=== PATIENT | male | born 1975 | race Caucasian/White ===

== ENCOUNTER 2020-10-24 09:46 | Inpatient (IN) | payer OTHER ==
--- NOTE | 2020-10-24 10:09 | ED ---
General Adult HPI - General Chief complaint: Abdominal Pain Stated complaint: Paracentesis Time Seen by Provider: 10/24/20 09:55 Source: patient, RN notes reviewed, old records reviewed Mode of arrival: ambulatory Limitations: no limitations - History of Present Illness Initial comments: This is a 44-year-old male who presents emergency Department with a past medical history significant for liver failure and ascites. Patient states he does continue drinking but not as much gas. Patient complains of shortness of breath. Patient states her last time his abdomen was this patient he had a paracentesis. Patient states it is getting so big that he is now becoming short of breath. Patient denies any chest pain patient denies any recent fever chills or cough per patient denies abdominal pain other than feeling of distention. Patient denies nausea vomiting diarrhea. - Related Data Allergies Allergy/AdvReac Type Severity Reaction Status Date / Time No Known Allergies Allergy Verified 10/24/20 11:11 Review of Systems ROS Statement: Those systems with pertinent positive or pertinent negative responses have been documented in the HPI. ROS Other: All systems not noted in ROS Statement are negative. Past Medical History Past Medical History: Liver Disease Additional Past Medical History / Comment(s): hx of ETOH ABUSE- History of Any Multi-Drug Resistant Organisms: None Reported Past Surgical History: No Surgical Hx Reported Past Psychological History: No Psychological Hx Reported Smoking Status: Current every day smoker Past Alcohol Use History: Abuse, Heavy General Exam - General Exam Comments Initial Comments: GENERAL: Patient is well-developed and well-nourished. Patient is nontoxic and well- hydrated and is in mild distress. ENT: Neck is soft and supple. No significant lymphadenopathy is noted. Oropharynx is clear. Moist mucous membranes. Neck has full range of motion without eliciting any pain. EYES: The sclera were anicteric and conjunctiva were pink and moist. Extraocular movements were intact and pupils were equal round and reactive to light. Eyelids were unremarkable. PULMONARY: Unlabored respirations. Good breath sounds bilaterally. No audible rales rhonchi or wheezing was noted. CARDIOVASCULAR: There is a regular rate and rhythm without any murmurs gallops or rubs. ABDOMEN: Patient's abdomen is distended consistent with ascites SKIN: Skin is clear with no lesions or rashes and otherwise unremarkable. NEUROLOGIC: Patient is alert and oriented x3. Cranial nerves II through XII are grossly intact. Motor and sensory are also intact. Normal speech, volume and content. Symmetrical smile. MUSCULOSKELETAL: Normal extremities with adequate strength and full range of motion. No lower extremity swelling or edema. No calf tenderness. LYMPHATICS: No significant lymphadenopathy is noted PSYCHIATRIC: Normal psychiatric evaluation. Limitations: no limitations Course Vital Signs 10/24/20 09:58 Temperature 98 F Pulse Rate 103 H Respiratory 18 Rate Blood Pressure 113/82 O2 Sat by Pulse 99 Oximetry Medical Decision Making - Medical Decision Making I spoke with Dr. cagle he agreed to admit the patient admitted the patient wrote admitting orders. - Lab Data Result diagrams: 10/24/20 10:15 10/24/20 10:15 Lab Results 10/24/20 10/24/20 10/24/20 Range/Units 10:15 10:15 10:15 WBC 8.5 (3.8-10.6) k/uL RBC 3.84 L (4.30-5.90) m/uL Hgb 14.3 (13.0-17.5) gm/dL Hct 42.5 (39.0-53.0) % MCV 110.7 H (80.0-100.0) fL MCH 37.3 H (25.0-35.0) pg MCHC 33.7 (31.0-37.0) g/dL RDW 12.8 (11.5-15.5) % Plt Count 154 (150-450) k/uL MPV 7.4 Neutrophils % 67 % Lymphocytes % 19 % Monocytes % 9 % Eosinophils % 3 % Basophils % 1 % Neutrophils # 5.7 (1.3-7.7) k/uL Lymphocytes # 1.6 (1.0-4.8) k/uL Monocytes # 0.7 (0-1.0) k/uL Eosinophils # 0.3 (0-0.7) k/uL Basophils # 0.1 (0-0.2) k/uL Manual Slide Review Performed Macrocytosis Marked A PT 12.0 (9.0-12.0) sec INR 1.1 (<1.2) APTT 26.4 (22.0-30.0) sec Sodium 135 L (137-145) mmol/L Potassium 4.5 (3.5-5.1) mmol/L Chloride 105 (98-107) mmol/L Carbon Dioxide 24 (22-30) mmol/L Anion Gap 6 mmol/L BUN 8 L (9-20) mg/dL Creatinine 0.62 L (0.66-1.25) mg/dL Est GFR (CKD-EPI)AfAm >90 (>60 ml/min/1.73 sqM) Est GFR (CKD-EPI)NonAf >90 (>60 ml/min/1.73 sqM) Glucose 111 H (74-99) mg/dL Calcium 8.6 (8.4-10.2) mg/dL Total Bilirubin 3.2 H (0.2-1.3) mg/dL AST 59 (17-59) U/L ALT 15 (4-49) U/L Alkaline Phosphatase 180 H (38-126) U/L Total Protein 7.2 (6.3-8.2) g/dL Albumin 3.2 L (3.5-5.0) g/dL Serum Alcohol <10 mg/dL Disposition Clinical Impression: Dyspnea, Ascites Disposition: ADMITTED IP TO THIS [facility] Referrals: Nonstaff,Physician [REFERRING] - 1-2 days Time of Disposition: 11:37
[2020-10-24 10:22] LABS: Basophils # (A) 0.1 k/uL (0-0.2); Basophils % (A) 1 %; Eosinophils # (A) 0.3 k/uL (0-0.7); Eosinophils % (A) 3 %; HCT 42.5 % (39.0-53.0); HGB 14.3 gm/dL (13.0-17.5); Lymphocytes # (A) 1.6 k/uL (1.0-4.8); Lymphocytes % (A) 19 %; MCH 37.3 pg (25.0-35.0); MCHC 33.7 g/dL (31.0-37.0); MCV 110.7 fL (80.0-100.0); Macrocytosis Marked; Mean Platelet Volume 7.4; Monocytes # (A) 0.7 k/uL (0-1.0); Monocytes % (A) 9 %; Neutrophils # (A) 5.7 k/uL (1.3-7.7); Neutrophils % (A) 67 %; Platelet Count 154 k/uL (150-450); RBC 3.84 m/uL (4.30-5.90); RDW 12.8 % (11.5-15.5); WBC 8.5 k/uL (3.8-10.6)
[2020-10-24 10:31] LABS: ALT 15 U/L (4-49); AST 59 U/L (17-59); African American GFR (CKD) >90 (>60 ml/min/1.73 sqM); Albumin 3.2 g/dL (3.5-5.0); Alcohol <10 mg/dL; Alkaline Phosphatase 180 U/L (38-126); Anion Gap 6 mmol/L; Blood Urea Nitrogen 8 mg/dL (9-20); Calcium 8.6 mg/dL (8.4-10.2); Carbon Dioxide 24 mmol/L (22-30); Chloride 105 mmol/L (98-107); Glucose 111 mg/dL (74-99); INR 1.1 (<1.2); Non-African American GFR(CKD) >90 (>60 ml/min/1.73 sqM); Partial Thromboplastin Time 26.4 sec (22.0-30.0); Potassium 4.5 mmol/L (3.5-5.1); Sodium 135 mmol/L (137-145); Total Bilirubin 3.2 mg/dL (0.2-1.3); Total Protein 7.2 g/dL (6.3-8.2)
[2020-10-24] MEDS ORDERED: THIAMINE 100 MG/ML 2 ML VIAL IM STA (11:40)
[2020-10-24] MEDS ORDERED: LORazepam 2 MG/ML INJ IV PRN ×3 (11:40)
--- NOTE | 2020-10-24 11:41 | XR ---
EXAMINATION TYPE: XR chest 2V DATE OF EXAM: 10/24/2020 COMPARISON: NONE HISTORY: Shortness of breath. TECHNIQUE: Frontal and lateral views of the chest are obtained. FINDINGS: There are areas of linear increased opacity mid to lower lungs bilaterally. No pleural eff usion or pneumothorax seen bilaterally. The cardiac silhouette size is within normal limits. Old frac ture posterior lateral right seventh rib is suspected, correlate clinically. IMPRESSION: Scattered linear atelectasis and/or less likely developing acute infiltrate. Correlate fo r acute asthma exacerbation.
[2020-10-24] MEDS ORDERED: HYDROmorphone 0.5 MG/0.5 ML SYRINGE IVP STA (12:07)
[2020-10-24] MEDS ORDERED: traMADol-ACETAMINOP 37.5-325MG 1 EACH TAB PO PRN (12:34)
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
--- NOTE | 2020-10-24 13:32 | US ---
EXAMINATION TYPE: US abdomen complete DATE OF EXAM: 10/24/2020 COMPARISON: NONE CLINICAL HISTORY: abd distension and pain with tenderness. Alcoholic and liver damage per EC patient EXAM MEASUREMENTS: Liver Length: 16.4 cm Gallbladder Wall: 0.4 cm CBD: 0.5 cm Spleen: 16.1 x 16.0 x 6.6 cm Right Kidney: 10.6 x 5.6 x 3.8 cm Left Kidney: 10.9 x 4.7 x 5.1 cm Abdominal organs are displaced by ascites seen in all four quadrants with largest ascites pocket at L LQ = 12.2cm A/P but bowel is noted within fluid pocket. RLQ ascites pocket = 9.5cm A/P. Pancreas: Suboptimally evaluated Liver: no masses seen Gallbladder: full of hyperechoic lobular mass and may be sludge/stones as some posterior shadowing i s seen from internal contents on image #[id number] Evidence for sonographic Mcguire's sign: tender here CBD: wnl Spleen: enlarged Right Kidney: No hydronephrosis or masses seen Left Kidney: parallel hyperechoic vessel jenkins noted laterally Upper IVC: wnl Abd Aorta: size is wnl as aorta is only seen proximally Poor visualization of pancreas on initial images saved. No aneurysm in the visualized portion of abdo henrietta aorta. Visualized liver heterogeneously hyperechoic with lobulated contour and surrounding asci komal. Evaluation for focal masses suboptimal due to the heterogeneity. Shadowing intraluminal gallston e in gallbladder. Mild gallbladder wall thickening most likely on basis of underlying hepatocellular disease. No biliary dilatation noted. No gross hydronephrosis bilaterally. Splenomegaly. IMPRESSION: Cirrhosis with evidence of underlying portal venous hypertension as there is splenomegaly with small to moderate amount of abdominal and pelvic ascites.
--- NOTE | 2020-10-24 13:33 | XR ---
EXAMINATION TYPE: XR KUB DATE OF EXAM: 10/24/2020 1:24 PM CLINICAL HISTORY: Pain and swelling. TECHNIQUE: Two Upright KUB images of the abdomen are obtained. COMPARISON: None. FINDINGS: Some paucity of bowel gas. Visualized gas seen in nondistended small and large bowel loops. Hepatomegaly suspected. No suspicious calcifications. No free air. Slight bulging of flanks consiste nt with mild ascites. Lung bases are clear. Visualized osseous structures are intact. IMPRESSION: Overall nonspecific felt to be nonobstructive bowel gas pattern.
--- NOTE | 2020-10-24 14:44 | P.GSCN ---
History of Present Illness Consult date: 10/24/20 History of present illness: CHIEF COMPLAINT: Abdominal pain HISTORY OF PRESENT ILLNESS: The patient is a 44 year old male who presents with history of alcoholic liver cirrhosis presents with abdominal pain and ascites. He presented to the emergency room yesterday. His abdominal pain is moderate severe. Gen. surgery including GI is consulted for his ascites and management. Patient reports moving from [place], [place] to here. He has 6 month history of recurrent ascites with four prior paracentesis. He reports his ascites came back sooner than expected. He is seeking care locally. He reports generalized abdominal pain for his tense ascites that is affecting his breathing as well. PAST MEDICAL HISTORY: See list and reviewed PAST SURGICAL HISTORY: See list and reviewed MEDICATIONS: See list and reviewed ALLERGIES: See list and reviewed SOCIAL HISTORY: See list and reviewed FAMILY HISTORY: See list and reviewed REVIEW OF ORGAN SYSTEMS: CONSTITUTIONAL: No fevers or chills. No recent weight loss. EYES: Denies any trouble with vision. No glasses. HEENT: No difficulties with hearing. No nosebleeds. No difficulty swallowing. RESPIRATORY: Denies pneumonia. Denies any troubles with breathing or dyspnea on exertion. CARDIOVASCULAR: Denies any chest pain, palpitations, or recent heart attacks. GASTROINTESTINAL: Has ascites including alcoholic cirrhosis GENITOURINARY: Denies any blood in urine or increased urinary frequency. NEUROLOGICAL: Denies any numbness or tingling along the distal extremities. No seizure disorders or headaches. MUSCULOSKELETAL: Denies any back pain, stiffness or joint arthritis. SKIN: No current skin cancer. No rash. PSYCHIATRIC: Denies current depression or suicidal thoughts. ENDOCRINE: Denies current thyroid disorders. Denies any blood sugar glucose intolerance. HEME/LYMPHATIC: Denies any lumps and bumps around the neck. No recent deep venous thrombosis. ALLERGY/IMMUNOLOGY: No immunoglobulin therapy. No immune deficiencies. BREAST: Denies current breast lumps, pain or nipple discharge. PHYSICAL EXAM: VITALS: Reviewed CONSTITUTIONAL: Well developed and in no acute distress. EYES: Conjuctivae without sclera icterus. Extraocular movements grossly intact. HEAD, EARS, NOSE, THROAT: Moist buccal mucosa. Head is atraumatic, normocephalic. Hears conversational speech. No nasal drainage. NECK: Supple. No JV distention. No thyroidomegaly. RESPIRATORY: Non-labored respirations and equal bilateral excursions. No gross wheezes. CARDIOVASCULAR: Regular rate and rhythm. Extremities without moderate edema. Palpable 2+ radial pulses. ABDOMEN: Tense ascites. LYMPH: No neck lymphadenopathy. MUSCULOSKELETAL: Nail and fingers with good capillary refill. SKIN: Warm and well perfused with good skin turgor. NEUROLOGIC: Cranial nerves II through XII grossly intact. Sensation upper and ex tremities intact. No focal or lateralizing signs. PSYCH: Appropriate affect. Alert and oriented to person, place and time. Displays appropriate insight. CLINCAL LABS: Reviewed IMAGING: Ultrasound of the abdomen independent review confirming ascites. Gallbladder wall identified with large gallstone. Common bile duct was less than 1 cm and within normal limits. This is my independent interpretation. RADIOLOGY: Report reviewed ASSESSMENT: 1. Alcoholic cirrhosis with moderate ascites 2. Gallstone PLAN: 1. Recommend GI consultation for management alcohol liver cirrhosis disease 2. Patient is elevated risk for complications due to pre-existing ascites. Recommend conservative management. 3. Recommend paracentesis for symptomatic tight ascites. Past Medical History Past Medical History: Liver Disease Additional Past Medical History / Comment(s): hx of ETOH ABUSE- History of Any Multi-Drug Resistant Organisms: None Reported Past Surgical History: No Surgical Hx Reported Past Psychological History: No Psychological Hx Reported Smoking Status: Current every day smoker Past Alcohol Use History: Abuse, Heavy - Past Family History Mother Family Medical History: Diabetes Mellitus Father Additional Family Medical History / Comment(s): alcoholism Medications and Allergies Home Medications Medication Instructions Recorded Confirmed Type Gabapentin 300 mg PO QID 10/24/20 12/10/20 History chlordiazePOXIDE HCl [Librium] 10 mg PO TID PRN 10/24/20 12/10/20 History Furosemide [Lasix] 40 mg PO BID #60 tablet 10/26/20 12/10/20 Rx Spironolactone [Aldactone] 100 mg PO DAILY #120 tab 10/26/20 12/10/20 Rx Famotidine [Pepcid] 20 mg PO Q12H 11/11/20 12/10/20 History Thiamine [Vitamin B-1] 100 mg PO AC-BID 11/11/20 12/10/20 History Multivitamins, Thera [Multivitamin 1 tab PO DAILY 12/02/20 12/10/20 History (formulary)] Allergies Allergy/AdvReac Type Severity Reaction Status Date / Time acetaminophen [From Tylenol] Allergy Unknown Verified 12/10/20 09:35 Surgical - Exam Vital Signs Temp Pulse Resp BP Pulse Ox 98 F 103 H 18 113/82 99 10/24/20 09:58 10/24/20 09:58 10/24/20 09:58 10/24/20 09:58 10/24/20 09:58 Results - Labs 10/26/20 07:21 10/26/20 13:58 Abnormal Lab Results - Last 24 Hours (Table) 10/24/20 10/24/20 Range/Units 10:15 10:15 RBC 3.84 L (4.30-5.90) m/uL MCV 110.7 H (80.0-100.0) fL MCH 37.3 H (25.0-35.0) pg Macrocytosis Marked A Sodium 135 L (137-145) mmol/L BUN 8 L (9-20) mg/dL Creatinine 0.62 L (0.66-1.25) mg/dL Glucose 111 H (74-99) mg/dL Total Bilirubin 3.2 H (0.2-1.3) mg/dL Alkaline Phosphatase 180 H (38-126) U/L Albumin 3.2 L (3.5-5.0) g/dL Diabetes panel 10/24/20 Range/Units 10:15 Sodium 135 L (137-145) mmol/L Potassium 4.5 (3.5-5.1) mmol/L Chloride 105 (98-107) mmol/L Carbon Dioxide 24 (22-30) mmol/L BUN 8 L (9-20) mg/dL Creatinine 0.62 L (0.66-1.25) mg/dL Glucose 111 H (74-99) mg/dL Calcium 8.6 (8.4-10.2) mg/dL AST 59 (17-59) U/L ALT 15 (4-49) U/L Alkaline Phosphatase 180 H (38-126) U/L Total Protein 7.2 (6.3-8.2) g/dL Albumin 3.2 L (3.5-5.0) g/dL Calcium panel 10/24/20 Range/Units 10:15 Calcium 8.6 (8.4-10.2) mg/dL Albumin 3.2 L (3.5-5.0) g/dL Pituitary panel 10/24/20 Range/Units 10:15 Sodium 135 L (137-145) mmol/L Potassium 4.5 (3.5-5.1) mmol/L Chloride 105 (98-107) mmol/L Carbon Dioxide 24 (22-30) mmol/L BUN 8 L (9-20) mg/dL Creatinine 0.62 L (0.66-1.25) mg/dL Glucose 111 H (74-99) mg/dL Calcium 8.6 (8.4-10.2) mg/dL Adrenal panel 10/24/20 Range/Units 10:15 Sodium 135 L (137-145) mmol/L Potassium 4.5 (3.5-5.1) mmol/L Chloride 105 (98-107) mmol/L Carbon Dioxide 24 (22-30) mmol/L BUN 8 L (9-20) mg/dL Creatinine 0.62 L (0.66-1.25) mg/dL Glucose 111 H (74-99) mg/dL Calcium 8.6 (8.4-10.2) mg/dL Total Bilirubin 3.2 H (0.2-1.3) mg/dL AST 59 (17-59) U/L ALT 15 (4-49) U/L Alkaline Phosphatase 180 H (38-126) U/L Total Protein 7.2 (6.3-8.2) g/dL Albumin 3.2 L (3.5-5.0) g/dL Assessment and Plan (1) Alcoholic cirrhosis of liver with ascites Status: Acute Code(s): K70.31 - ALCOHOLIC CIRRHOSIS OF LIVER WITH ASCITES SNOMED Code(s): 645356733 (2) Gallstones Status: Acute Code(s): K80.20 - CALCULUS OF GALLBLADDER W/O CHOLECYSTITIS W/O OBSTRUCTION SNOMED Code(s): 711373365 (3) Generalized abdominal pain Status: Acute Code(s): R10.84 - GENERALIZED ABDOMINAL PAIN SNOMED Code(s): 782613908
[2020-10-24] MEDS: GABAPENTIN 300 MG CAP PO SCH ×3 (15:17→21:04)
[2020-10-24] MEDS: THIAMINE 100 MG TAB PO SCH (17:43)
[2020-10-24] MEDS ORDERED: FAMOTIDINE 20 MG/2 ML VIAL IV SCH (21:00)
[2020-10-24] MEDS: FAMOTIDINE 20 MG TAB PO SCH (21:04)
[2020-10-24] MEDS: HEPARIN SODIUM,PORCINE/PF 5,000 UNIT/0.5 ML SYRINGE SQ SCH (21:04)
[2020-10-25] MEDS ORDERED: traMADol 50 MG TAB PO PRN (06:57)
[2020-10-25] MEDS ORDERED: SPIRONOLACTONE 25 MG TAB PO SCH (08:00)
[2020-10-25] MEDS: THIAMINE 100 MG TAB PO SCH ×2 (08:05→17:28)
[2020-10-25] MEDS: GABAPENTIN 300 MG CAP PO SCH ×4 (08:05→22:26)
[2020-10-25] MEDS: HEPARIN SODIUM,PORCINE/PF 5,000 UNIT/0.5 ML SYRINGE SQ SCH ×2 (08:05→19:51)
[2020-10-25] MEDS: FUROSEMIDE 10 MG/ML 4 ML VIAL IV SCH ×2 (08:05→19:51)
[2020-10-25] MEDS: FAMOTIDINE 20 MG TAB PO SCH ×2 (08:05→19:51)
--- NOTE | 2020-10-25 12:02 | P.PN ---
Subjective This is a pleasant 44 years old male with past medical history of alcohol abuse, alcoholic liver disease and ascites status post previous tapping. Presents because of respiratory distress whom he believes is due to his worsening ascites. Patient is a cigarette smoker. He is following up with the Office and Dr. Patiño . Patient states that he's been diagnosed with alcoholic liver disease about 6 months ago. He underwent paracentesis about 2.5 weeks at [place] Now he presents because of abdominal pain which started yesterday however had become more severe about 2 hours ago, his pain is all over and more on the right side, he rated as 9.5/10 in severity as he describes. Nonspecific. Her diarrhea. No chest pain, he has mild breathing difficulty mostly due to his abdominal pain and distention. No chest pain. He has chronic cough with minimal occasional phlegm which is also chronic. No headache or weakness. No numbness. He still smokes about 1 pack per day. He states he quit drinking except for dilute alcohol at times and beers occasionally Vitas looks stable. Labs are unremarkable including CBC, INR, BMP, liver enzymes. Bilirubin is elevated at 3.2. Chest x-ray: Scattered linear atelectasis and/or less likely develop an acute infiltrates. Correlate for acute asthma exacerbation In the emergency room patient was started on CIWA protocol father at bedside. He help with history 10/25/2020 Patient abdominal pain is better controlled after taking Ultram which he states helping him. He tolerates diet well, he had normal bowel movement today. He is in less distress. His PCP is Dr. Heard from [place] from the [place]. He does not follow up with GI because he just moving into the town. Admits quitting drinking alcohol. GI team evaluated the patient and plan for paracentesis tomorrow. No surgical intervention per surgery team. Patient is a started on IV Lasix, oral Aldactone with fluid restriction. M onitor weight, creatinine and electrolytes Objective - Vital Signs Vital signs: Vital Signs Temp 98.9 F 10/25/20 11:25 Pulse 110 H 10/25/20 11:25 Resp 16 10/25/20 11:25 BP 100/72 10/25/20 11:25 Pulse Ox 92 L 10/25/20 11:25 Intake & Output 10/24/20 10/25/20 10/25/20 18:59 06:59 18:59 Intake Total 480 Balance 480 Weight 70.76 kg Intake: Oral 480 Other: Voiding Method Toilet Toilet # Voids 1 - Exam GENERAL: The patient is alert and oriented x3, not in any acute distress. Well developed, well nourished. HEENT: Pupils are round and equally reacting to light. EOMI. No scleral icterus. No conjunctival pallor. Normocephalic, atraumatic. No pharyngeal erythema. No thyromegaly. CARDIOVASCULAR: S1 and S2 present. No murmurs, rubs, or gallops. PULMONARY: Chest is clear to auscultation, no wheezing or crackles. -ABDOMEN: Soft, less tender,distended, normoactive bowel sounds. No palpable organomegaly. MUSCULOSKELETAL: No joint swelling or deformity. EXTREMITIES: No cyanosis, clubbing, or pedal edema. NEUROLOGICAL: Gross neurological examination did not reveal any focal deficits. SKIN: No rashes. no petechiae. - Labs CBC & Chem 7: 10/24/20 10:15 10/24/20 10:15 Assessment and Plan Assessment: abdominal pain and tenderness secondary to ascites Alcoholic liver disease decompensated cirrhosis with ascites. Jaundice Alcohol abuse at-risk of alcohol withdrawal. Nicotine dependence Plan: This is a pleasant 44 years old male who presents with abdominal pain and tenderness, possible decompensated liver disease with ascites Consult GI and plan for paracentesis. Pain management. Continue With diuretics Abstinence from alcohol If Ascites is confirmed, we'll start the patient on diuretics and consult IR for paracentesis Labs and medication were reviewed.. Continue same treatment. Continue with symptomatic treatment. Resume home medication. Monitor lytes and vitals. DVT and GI prophylaxis. Further recommendationsas per clinical course of the patient DVT prophylaxis: Subcutaneous heparin GI Prophylaxis: Pepcid PT/OT: Pending Prognosis is guarded
[2020-10-25 13:15] VITALS: RESP 16
[2020-10-25 13:54] VITALS: BMI 21.7
[2020-10-25] MEDS: ALBUMIN HUMAN 25% 50 ML in EMPTY BAG 1 BAG IVPB SCH ×2 (15:21→15:43)
--- NOTE | 2020-10-25 15:28 | P.PN ---
Subjective Progress Note Date: 10/25/20 CHIEF COMPLAINT: Abdominal pain HISTORY OF PRESENT ILLNESS: The patient is a 44 year old male who presents in history of alcoholic liver cirrhosis presents with initial tense ascites. He status post paracentesistoday. His abdominal pain is resolved. Tolerating diet regular diet. REVIEW OF ORGAN SYSTEMS: No nausea or vomiting fevers chills. No chest pain. No shortness of breath. PHYSICAL EXAM: VITALS: Reviewed CONSTITUTIONAL: Well developed and in no acute distress. EYES: Conjuctivae without sclera icterus. Extraocular movements grossly intact. HEAD, EARS, NOSE, THROAT: Moist buccal mucosa. Head is atraumatic, normocephalic. Hears conversational speech. No nasal drainage. NECK: Supple. No JV distention. No thyroidomegaly. RESPIRATORY: Non-labored respirations and equal bilateral excursions. No gross wheezes. CARDIOVASCULAR: Regular rate and rhythm. Extremities without moderate edema. Palpable 2+ radial pulses. ABDOMEN: Abdomen soft. No peritonitis. Mild ascites MUSCULOSKELETAL: Nail and fingers with good capillary refill. SKIN: Warm and well perfused with good skin turgor. NEUROLOGIC: Cranial nerves II through XII grossly intact. Sensation upper and extremities intact. No focal or lateralizing signs. PSYCH: Appropriate affect. Alert and oriented to person, place and time. Displays appropriate insight. CLINCAL LABS: Reviewed REPORT: Ultrasound report demonstrates cirrhosis with ascites and gallstones. ASSESSMENT: 1. Alcoholic cirrhosis with moderate ascites 2. Asymptomatic gallstones PLAN: 1. Management per GI regarding chronic ascites. No surgical intervention at this time. Objective - Vital Signs Vital signs: Vital Signs Temp 98.9 F 10/25/20 11:25 Pulse 105 H 10/25/20 14:01 Resp 16 10/25/20 14:01 BP 111/72 10/25/20 14:01 Pulse Ox 94 L 10/25/20 14:01 Intake & Output 10/24/20 10/25/20 10/25/20 18:59 06:59 18:59 Intake Total 480 Balance 480 Weight 70.76 kg 70.76 kg Intake: Oral 480 Other: Voiding Method Toilet Toilet # Voids 1 - Labs CBC & Chem 7: 10/24/20 10:15 10/24/20 10:15 Assessment and Plan (1) Alcoholic cirrhosis of liver with ascites Current Visit: Yes Status: Acute Code(s): K70.31 - ALCOHOLIC CIRRHOSIS OF LIVER WITH ASCITES SNOMED Code(s): 579994022 (2) Gallstones Current Visit: Yes Status: Acute Code(s): K80.20 - CALCULUS OF GALLBLADDER W/O CHOLECYSTITIS W/O OBSTRUCTION SNOMED Code(s): 591281087 (3) Generalized abdominal pain Current Visit: Yes Status: Acute Code(s): R10.84 - GENERALIZED ABDOMINAL PAIN SNOMED Code(s): 249320157
--- NOTE | 2020-10-25 16:04 | US ---
EXAMINATION TYPE: US paracentesis abd w/image DATE OF EXAM: 10/25/2020 COMPARISON: NONE HISTORY: Ascites. PROCEDURE: Maximal barrier technique was utilized. The skin overlying a suitable pocket of fluid was localized with ultrasound and the overlying skin was prepped and draped. Ultrasound was utilized with sterile technique. Lidocaine was used for local anesthesia and a skin colleen made with a scalpel. Catheter was advanced under direct ultrasound guidance into a suitable pocket of fluid and approximately 7.2 liter s of serous fluid were removed. Catheter was withdrawn and hemostasis achieved. There is no immedia te complication; the patient is discharged in stable condition. IMPRESSION: STATUS POST ULTRASOUND GUIDED PARACENTESIS FOR PALLIATION OF ASCITES. THIS PROCEDURE WA S PERFORMED BY THE UNDERSIGNED.
--- NOTE | 2020-10-25 16:29 | CONS ---
CONSULTATION DATE OF DICTATION: October 25, 2020 REASON FOR CONSULTATION: Ascites, alcoholic liver disease. HISTORY OF PRESENT ILLNESS: The patient is a 44-year-old white male with history of heavy alcohol abuse diagnosed with alcoholic liver disease and recurrent ascites who was admitted to hospital with acute onset of severe abdominal pain and progressive abdominal distention. He was noted to have significant amount of ascites. He underwent large-volume paracentesis this morning and approximately 7.2 L of fluid was removed. The patient states that he had 5 other episodes of paracentesis done in the last 2 months while he was living in [facility]. The patient was not on any diuretics prior to admission to this hospital. Following the paracentesis, he is feeling much better. He drinks a 5th of hard liquor every day and occasional beers. This patient states that he quit drinking about 3 weeks ago. He is feeling much better currently. PAST MEDICAL HISTORY: Significant for alcoholic liver disease with cirrhosis of the liver diagnosed about 6 months ago. PAST SURGICAL HISTORY: Unremarkable. MEDICATIONS: Medications at home include gabapentin, melatonin, and Librium. ALLERGIES: None. SOCIAL HISTORY: Chronic smoker. Heavy alcohol use as mentioned above, quit drinking about 3 weeks ago. FAMILY HISTORY: Unremarkable. REVIEW OF SYSTEMS: CARDIOPULMONARY: He denies any chest pain or shortness of breath. GENITOURINARY: No dysuria or hematuria. MUSCULOSKELETAL: Unremarkable. SKIN: Unremarkable. ENDOCRINE: Unremarkable. PSYCHIATRIC: Unremarkable. NEUROLOGY: Unremarkable. ENT/VISION: Unremarkable. CONSTITUTIONAL: No recent weight loss. No fever, chills, night sweats. PHYSICAL EXAMINATION: He appears comfortable. Vital signs are stable. Blood pressure is 110/72, pulse rate 105, temperature 98.9. HEENT EXAMINATION: Unremarkable. Conjunctivae pink. Sclerae anicteric Oral cavity no lesions. NECK: No JVD or lymph node enlargement. CHEST: Was clear to auscultation. HEART: Regular rate and rhythm. ABDOMEN: Soft. It was slightly distended but it was nontender. EXTREMITIES: Trace pedal edema. NEUROLOGIC: Alert and oriented x3. No focal deficits. LABS: WBC 8.5, hemoglobin 14.3, platelets normal. BUN and creatinine are within normal limits. Sodium 135, potassium 4.5, chloride 105, CO2 is 24. Albumin is 3.2. Serum alcohol less than 10. He did have an ultrasound of the abdomen done in the ER yesterday that revealed moderate amount of ascites with cirrhosis of the liver and portal venous hypertension. IMPRESSION: 1. Abdominal distention/ascites secondary to alcoholic cirrhosis of the liver and portal hypertension, status post large-volume paracentesis 7.2 L of fluid was removed. Cytology is still pending. 2. Alcoholic cirrhosis of the liver diagnosed 6 months ago. 3. Heavy alcohol abuse, quit drinking about 3 weeks ago. RECOMMENDATIONS: 1. Start him on diuretics with Lasix 40 b.i.d. and Aldactone 100 mg daily. 2. Low-salt diet. 3. Abstinence from alcohol. 4. I had a lengthy discussion with the patient regarding management of ascites. At this time we will continue him on diuretics. He can be discharged home tomorrow with close outpatient followup in 2 weeks. Thank you for this consultation. MMTAMARAL / CODYN: [id number] /
[2020-10-25 16:40] LABS: Appearance,BF Hazy; Color,BF Yellow; Nucleated Cells, Body Fluid 50 /uL; RBC, Body Fluid 1540 /uL
[2020-10-25 16:47] LABS: Mononuclear WBC,Body Fluid 77 %; Polynuclear WBC,Body Fluid 23 %; Total Cells Counted,Body Fluid 100
[2020-10-25 22:50] LABS: Albumin, Fluid Source Ascites; Total Protein, Body Fluid 1330 mg/dL
[2020-10-26] MEDS: GABAPENTIN 300 MG CAP PO SCH ×2 (07:48→12:47)
[2020-10-26] MEDS: THIAMINE 100 MG TAB PO SCH (07:48)
[2020-10-26] MEDS: FUROSEMIDE 10 MG/ML 4 ML VIAL IV SCH (07:48)
[2020-10-26] MEDS: HEPARIN SODIUM,PORCINE/PF 5,000 UNIT/0.5 ML SYRINGE SQ SCH (07:48)
[2020-10-26] MEDS: FAMOTIDINE 20 MG TAB PO SCH (07:48)
[2020-10-26 08:08] LABS: ALT 10 U/L (4-49); AST 39 U/L (17-59); African American GFR (CKD) >90 (>60 ml/min/1.73 sqM); Albumin 2.4 g/dL (3.5-5.0); Albumin/Globulin Ratio 0.8; Alkaline Phosphatase 128 U/L (38-126); Anion Gap 5 mmol/L; Blood Urea Nitrogen 10 mg/dL (9-20); Calcium 8.1 mg/dL (8.4-10.2); Carbon Dioxide 24 mmol/L (22-30); Chloride 101 mmol/L (98-107); Globulin 3.2 g/dL; Glucose 92 mg/dL (74-99); Magnesium 1.8 mg/dL (1.6-2.3); Non-African American GFR(CKD) >90 (>60 ml/min/1.73 sqM); Potassium 3.9 mmol/L (3.5-5.1); Sodium 130 mmol/L (137-145); Total Bilirubin 1.5 mg/dL (0.2-1.3); Total Protein 5.6 g/dL (6.3-8.2)
[2020-10-26 08:44] LABS: HCT 38.6 % (39.0-53.0); HGB 12.5 gm/dL (13.0-17.5); MCH 35.5 pg (25.0-35.0); MCHC 32.3 g/dL (31.0-37.0); MCV 109.9 fL (80.0-100.0); Macrocytosis Marked; Mean Platelet Volume 7.7; Platelet Count 132 k/uL (150-450); RBC 3.51 m/uL (4.30-5.90); RDW 13.6 % (11.5-15.5); WBC 6.9 k/uL (3.8-10.6)
[2020-10-26] MEDS ORDERED: SPIRONOLACTONE 25 MG TAB PO SCH (09:00)
--- NOTE | 2020-10-26 10:04 | P.PN ---
Subjective Progress Note Date: 10/26/20 Principal diagnosis: Ascites 44-year-old male who presented to the hospital 2 days ago with abdominal pain and distention. Has a history of heavy alcohol abuse with cirrhosis of the liver with ascites. He has known for previous paracentesis which he states are approximately 3-4 weeks apart. He is not following with any data migration lead at this time. He underwent a paracentesis yesterday with fluid studies, they removed 7.2 L. He has status post albumin. He states his abdominal pain has improved, distention has improved. No acute changes through the night. Denies any nausea, vomiting, or diarrhea. Objective - Vital Signs Vital signs: Vital Signs Temp 98.2 F 10/26/20 04:53 Pulse 104 H 10/26/20 04:53 Resp 16 10/26/20 04:53 BP 92/59 10/26/20 04:53 Pulse Ox 93 L 10/26/20 04:53 Intake & Output 10/25/20 10/26/20 10/26/20 18:59 06:59 18:59 Intake Total 340 480 472 Balance 340 480 472 Weight 70.76 kg Intake: Intake, IV Titration 100 Amount Albumin Human 25% 50 ml 100 In Empty Bag 1 bag @ 200 mls/hr IVPB Q15M COUNTS INCLUDE 234 BEDS AT THE [facility] Rx#: [id number] Oral 240 480 472 Other: Voiding Method Toilet Toilet Toilet # Voids 2 2 - Exam General appearance: The patient is alert, oriented, appears in no acute distress. HET: Head is normocephalic and atraumatic. Conjunctiva pink. Sclera anicteric. Neck: Supple without lymphadenopathy. Abdomen: Soft, mildly tender, distended with bowel sounds. No guarding or rigidity. Extremities: Normal skin color and turgor. No pedal edema Skin: No rashes, no jaundice Neurological: No focal deficits. Alert and oriented 3. - Labs CBC & Chem 7: 10/26/20 07:21 10/26/20 13:58 Labs: Abnormal Lab Results - Last 24 Hours (Table) 10/26/20 10/26/20 Range/Units 07: 07:21 RBC 3.51 L (4.30-5.90) m/uL Hgb 12.5 L (13.0-17.5) gm/dL Hct 38.6 L (39.0-53.0) % MCV 109.9 H (80.0-100.0) fL MCH 35.5 H (25.0-35.0) pg Plt Count 132 L (150-450) k/uL Macrocytosis Marked A Sodium 130 L (137-145) mmol/L Creatinine 0.51 L (0.66-1.25) mg/dL Calcium 8.1 L (8.4-10.2) mg/dL Total Bilirubin 1.5 H (0.2-1.3) mg/dL Alkaline Phosphatase 128 H (38-126) U/L Total Protein 5.6 L (6.3-8.2) g/dL Albumin 2.4 L (3.5-5.0) g/dL Assessment and Plan (1) Alcoholic cirrhosis of liver with ascites Narrative/Plan: This is a 44-year-old male who presented to the hospital with complaints of abdominal distention and abdominal pain. He was recently diagnosed with cirrhosis of the liver with ascites approximately 5 months ago. He has underwent for paracentesis previously. He has a history of heavy alcohol abuse that the day or more for greater than 26 years. He is status post Zee T since yesterday was 7.2 L removed along with albumin Status: Acute Code(s): K70.31 - ALCOHOLIC CIRRHOSIS OF LIVER WITH ASCITES SNOMED Code(s): 405034930 (2) Generalized abdominal pain Status: Acute Code(s): R10.84 - GENERALIZED ABDOMINAL PAIN SNOMED Code(s): 275197932 Plan: 1. Low sodium diet 2. Lasix 40 mg once a day 3. Aldactone 100 mg daily 4. Alcohol cessation 5. Patient will need close follow-up with gastroenterology for outpatient paracentesis Thank you for this consultation, patient may be discharged home once otherwise medically stable Dr. Karla Vargas I agree with the dictator's note, documented as a scribe by Karin Dennis.
[2020-10-26 10:46] LABS: Eosinophils # (M) 0.35 k/uL (0-0.7); Monocytes # (M) 0.48 k/uL (0-1.0); Neutrophils # (M) 4.07 k/uL (1.3-7.7); Neutrophils % (M) 59 %; Nucleated Red Blood Cells 0 /100 WBC (0-0); Total Cells Counted 100
[2020-10-26 11:42] VITALS: BP 95/55; PULSE 103; TEMP 98.8
--- NOTE | 2020-10-26 14:12 | P.PN ---
Subjective Progress Note Date: 10/26/20 CHIEF COMPLAINT: Abdominal pain HISTORY OF PRESENT ILLNESS: The patient is a 44 year old male with alcoholic cirrhosis and ascites. He is tolerating diet. He denies any right upper quadrant abdominal pain or new abdominal pain. He is on fluid restriction. Ultrasound findings are described including presence of gallstones for which he is asymptomatic. REVIEW OF ORGAN SYSTEMS: No nausea or vomiting fevers chills. No chest pain. No shortness of breath. PHYSICAL EXAM: VITALS: Reviewed CONSTITUTIONAL: Well developed and in no acute distress. EYES: Conjuctivae without sclera icterus. Extraocular movements grossly intact. HEAD, EARS, NOSE, THROAT: Moist buccal mucosa. Head is atraumatic, no rmocephalic. Hears conversational speech. No nasal drainage. RESPIRATORY: Non-labored respirations and equal bilateral excursions. No gross wheezes. CARDIOVASCULAR: Regular rate and rhythm. Extremities without moderate edema. Palpable 2+ radial pulses. ABDOMEN: No peritonitis. MUSCULOSKELETAL: Nail and fingers with good capillary refill. SKIN: Warm and well perfused with good skin turgor. NEUROLOGIC: Cranial nerves II through XII grossly intact. Sensation upper and extremities intact. No focal or lateralizing signs. PSYCH: Appropriate affect. Alert and oriented to person, place and time. Displays appropriate insight. ASSESSMENT: 1. Alcoholic cirrhosis with moderate ascites 2. Asymptomatic gallstones PLAN: 1. Continue with fluid restriction. 2. Patient is asymptomatic for gallstones and over will be high risk. 3. Recommend follow-up with gastroenterology upon discharge Objective - Vital Signs Vital signs: Vital Signs Temp 98.8 F 10/26/20 11:20 Pulse 103 H 10/26/20 11:20 Resp 16 10/26/20 11:20 BP 95/55 10/26/20 11:20 Pulse Ox 92 L 10/26/20 11:20 Intake & Output 10/25/20 10/26/20 10/26/20 18:59 06:59 18:59 Intake Total 340 480 944 Balance 340 480 944 Weight 70.76 kg Intake: Intake, IV Titration 100 Amount Albumin Human 25% 50 ml 100 In Empty Bag 1 bag @ 200 mls/hr [facility]PB Q[facility] Rx#: [id number] Oral 240 480 944 Other: Voiding Method Toilet Toilet Toilet # Voids 2 2 - Labs CBC & Chem 7: 10/26/20 07:21 10/26/20 07:21 Labs: Abnormal Lab Results - Last 24 Hours (Table) 10/26/20 10/26/20 Range/Units 07:21 07:21 RBC 3.51 L (4.30-5.90) m/uL Hgb 12.5 L (13.0-17.5) gm/dL Hct 38.6 L (39.0-53.0) % MCV 109.9 H (80.0-100.0) fL MCH 35.5 H (25.0-35.0) pg Plt Count 132 L (150-450) k/uL Macrocytosis Marked A Sodium 130 L (137-145) mmol/L Creatinine 0.51 L (0.66-1.25) mg/dL Calcium 8.1 L (8.4-10.2) mg/dL Total Bilirubin 1.5 H (0.2-1.3) mg/dL Alkaline Phosphatase 128 H (38-126) U/L Total Protein 5.6 L (6.3-8.2) g/dL Albumin 2.4 L (3.5-5.0) g/dL Assessment and Plan (1) Alcoholic cirrhosis of liver with ascites Current Visit: Yes Status: Acute Code(s): K70.31 - ALCOHOLIC CIRRHOSIS OF LIVER WITH ASCITES SNOMED Code(s): 276548377 (2) Gallstones Current Visit: Yes Status: Acute Code(s): K80.20 - CALCULUS OF GALLBLADDER W/O CHOLECYSTITIS W/O OBSTRUCTION SNOMED Code(s): 623637394 (3) Generalized abdominal pain Current Visit: Yes Status: Acute Code(s): R10.84 - GENERALIZED ABDOMINAL PAIN SNOMED Code(s): 277804474
[2020-10-26 14:31] LABS: Potassium 4.1 mmol/L (3.5-5.1)
[2020-10-26 15:48] LABS: African American GFR (CKD) 150.6 (60.0-200.0); Anion Gap 10.5 mmol/L (4.00-12.00); Calcium 7.8 mg/dL (8.7-10.3); Carbon Dioxide 22.5 mmol/L (21.6-31.8); Magnesium 1.6 mg/dL (1.5-2.4); Potassium 3.8 mmol/L (3.5-5.5)
[2020-10-26 18:40] LABS: Hepatitis A Antibody IgM Non-Reactive (Non-Reactive); Hepatitis B Core IgM Non-Reactive (Non-Reactive); Hepatitis B Surface Antigen Non-Reactive (Non-Reactive); Hepatitis C IgG Antibody Non-Reactive (Non-Reactive)
--- NOTE | 2020-10-26 22:06 | P.DS ---
Providers Date of admission: 10/24/20 11:38 Attending physician: Misbah Deshpande MD Consults: 10/24/20 11:40 Consult Physician Urgent Consulting Provider: Rula Vargas Consult Reason/Comments: ascitis ,alcoholic cirrhosis Do you want consulting provider notified?: Yes 10/24/20 12:27 Consult Physician Urgent Consulting Provider: Mayra Goldsmith Consult Reason/Comments: abd tenderness and guarding , alcohlic liver disease Do you want consulting provider notified?: Yes Primary care physician: Stated None Hospital Course: Diagnoses: abdominal pain and tenderness secondary to ascites, improved with paracentesis 7.2 liters removed Alcoholic liver disease decompensated cirrhosis with ascites. Jaundice Alcohol abuse at-risk of alcohol withdrawal. Nicotine dependence Hospital course: This is a pleasant 44 years old male with past medical history of alcohol abuse, alcoholic liver disease and ascites status post previous tapping. Presents because of respiratory distress whom he believes is due to his worsening ascites. Patient is a cigarette smoker. He is following up with the Office and Dr. Patiño . Patient states that he's been diagnosed with alcoholic liver disease about 6 months ago. He underwent paracentesis about 2.5 weeks ago at [place] Now he presents because of abdominal pain which started yesterday secondary to ascites. Status post paracentesis with complete resolution of his symptoms, today patient is with no abdominal pain and draped as 0/10. No nausea vomiting or diarrhea. He pleasant. He denies chest pain or dyspnea. He eats well and he likes his breakfast today with syncopal takes. Patient also has been evaluated by GI and surgery service and they recommended to continue with conservative management,. Patient was started on Lasix 40 mg twice daily and Aldactone 200 mg daily. Patient showed interval improvement and clinically stable. Patient was cleared for discharge by GI and surgery services Problems and management plan were discussed with the patient and he verbalized understanding and acceptance Patient was found stable and can be discharged home however he needs follow-up as an outpatient. Patient was instructed to follow up with PCP within one week and patient agrees to call his PCP Félix at [facility] for an appointment within 1 week Patient was instructed to follow up with GI service and he agrees with the appointments made for him with that applying PA on 11/08/2020 stating he will follow-up Physical exam Gen: patient is a AAOx3, no distress CVS: S1-S2, RRR, no murmur Lungs: B/L CTA, no wheezing Abdomen: soft, no distention, no tenderness, positive bowel sounds Extremity: no leg edema or induration Time spent more than 35 minutes Plan - Discharge Summary Discharge Rx Participant: Yes New Discharge Prescriptions: New Spironolactone [Aldactone] 100 mg PO DAILY #120 tab Furosemide [Lasix] 40 mg PO BID #60 tablet Famotidine [Pepcid] 20 mg PO Q12HR #30 tab Thiamine [Vitamin B-1] 100 mg PO BID-W/MEALS #30 tab Continue Gabapentin 300 mg PO QID chlordiazePOXIDE HCl [Librium] 10 mg PO TID PRN PRN Reason: Anxiety Melatonin Unknown Dose 1 tab PO HS PRN PRN Reason: Insomnia Discharge Medication List Gabapentin 300 mg PO QID 10/24/20 [History] Melatonin Unknown Dose 1 tab PO HS PRN 10/24/20 [History] chlordiazePOXIDE HCl [Librium] 10 mg PO TID PRN 10/24/20 [History] Famotidine [Pepcid] 20 mg PO Q12HR #30 tab 10/26/20 [Rx] Furosemide [Lasix] 40 mg PO BID #60 tablet 10/26/20 [Rx] Spironolactone [Aldactone] 100 mg PO DAILY #120 tab 10/26/20 [Rx] Thiamine [Vitamin B-1] 100 mg PO BID-W/MEALS #30 tab 10/26/20 [Rx] Follow up Appointment(s)/Referral(s): Seda Cheung, MIMA [REFERRING] - 11/08/20 9:45 am Nonstaff,Physician [REFERRING] - 1-2 days Patient Instructions/Handouts: Ascites (ED) Activity/Diet/Wound Care/Special Instructions: Continue with fluid restriction 1200 mL per day. Heart healthy diet. Salt restriction. Activities are restricted until you see your doctor Follow-up with your primary care doctor in [address] Patiño from the [facility]. You have the contact information as you informed the medical team. Please call to make an appointment within 1 week Discharge Disposition: HOME SELF-CARE
== END 2020-10-26 16:00 | disposition home or self-care (01) | DRG 433 ==
LOC: EC 09:46 → 5NMEDONC 11:38
PROVIDERS: ADMIT Internal Medicine; ATTEND Internal Medicine
PROC: 0W9G3ZX Drainage of Peritoneal Cavity, Percutaneous Approach, Diagnostic (ICD-10-PCS; principal; 2020-10-25)
DX: K70.31 Alcoholic cirrhosis of liver with ascites (principal); K76.6 Portal hypertension; K70.40 Alcoholic hepatic failure without coma; F10.10 Alcohol abuse, uncomplicated; Z20.822 Contact with and (suspected) exposure to COVID-19; R06.03 Acute respiratory distress; Y90.0 Blood alcohol level of less than 20 mg/100 ml; K80.20 Calculus of gallbladder without cholecystitis without obstruction; F17.210 Nicotine dependence, cigarettes, uncomplicated; Z83.3 Family history of diabetes mellitus
CPT/HCPCS: 36415; 49083; 71046; 74018; 76700; 80048; 80051; 80053; 80074; 80076; 80320; 82042; 83735; 84157; 85025; 85610; 85730; 87635; 88108; 88305; 89050; 99285

== ENCOUNTER 2020-11-11 10:53 | Inpatient (IN) | payer OTHER ==
[2020-11-12 07:45] VITALS: RESP 16
[2020-11-12 15:18] VITALS: BP 88/57; PULSE 92; TEMP 98.3
== END 2020-11-12 15:49 | disposition home or self-care (01) | DRG 433 ==
LOC: EC 10:53 → 6NMEDSUR 13:25 → OBSVTOIN 11-12 11:06
PROVIDERS: ADMIT Hospitalist; ATTEND Hospitalist
PROC: 0W9G3ZZ Drainage of Peritoneal Cavity, Percutaneous Approach (ICD-10-PCS; principal; 2020-11-12)
DX: K70.31 Alcoholic cirrhosis of liver with ascites (principal); E44.1 Mild protein-calorie malnutrition; F17.200 Nicotine dependence, unspecified, uncomplicated; F10.10 Alcohol abuse, uncomplicated; Z68.20 Body mass index [BMI] 20.0-20.9, adult
CPT/HCPCS: 36415; 49083; 80053; 81003; 82140; 83690; 85025; 85610; 85730; 87635; 88108; 88305; 93005; 99285

== ENCOUNTER 2020-11-29 10:06 | Observation (INO) | payer OTHER ==
[2020-11-29] MEDS ORDERED: MORPHINE SULFATE 4 MG/ML SYRINGE IV STA (10:49)
--- NOTE | 2020-11-29 10:57 | ED ---
Abdominal Pain HPI - General Chief Complaint: Abdominal Pain Stated Complaint: Paracentesis Source: patient, family, RN notes reviewed, old records reviewed Mode of arrival: wheelchair Limitations: no limitations - History of Present Illness Initial Comments: 45-year-old white male, alert and oriented 4, presents to the emergency room with increasing abdominal distention he states from ascites. Patient states that he is scheduled for paracentesis on 79 however he cannot wait that long as he feels increasing pain. Patient states has history of EtOH cirrhosis. He denies any fevers. He states he does have some nausea but denies any vomiting or diarrhea. Patient denies any chest pain. He does complain of shortness of breath which he relates to being distended abdomen. MD Complaint: abdominal pain Location: diffuse Radiation: none Severity scale (1-10): 10 Quality: fullness Consistency: constant Improves With: nothing Worsens With: movement Associated Symptoms: denies other symptoms - Related Data Home Medications Medication Instructions Recorded Confirmed Gabapentin 300 mg PO QID 10/24/20 11/29/20 Melatonin Unknown Dose 1 tab PO HS PRN 10/24/20 11/29/20 chlordiazePOXIDE HCl [Librium] 10 mg PO TID PRN 10/24/20 11/29/20 Famotidine [Pepcid] 20 mg PO Q12H 11/11/20 11/29/20 Thiamine [Vitamin B-1] 100 mg PO AC-BID 11/11/20 11/29/20 Previous Rx's Medication Instructions Recorded Furosemide [Lasix] 40 mg PO BID #60 tablet 10/26/20 Spironolactone [Aldactone] 100 mg PO DAILY #120 tab 10/26/20 Allergies Allergy/AdvReac Type Severity Reaction Status Date / Time acetaminophen [From Tylenol] Allergy Unknown Verified 11/29/20 11:55 Review of Systems ROS Statement: Those systems with pertinent positive or pertinent negative responses have been documented in the HPI. ROS Other: All systems not noted in ROS Statement are negative. Past Medical History Past Medical History: Liver Disease Additional Past Medical History / Comment(s): hx of ETOH ABUSE-, cirrhosis History of Any Multi-Drug Resistant Organisms: None Reported Past Surgical History: No Surgical Hx Reported Past Psychological History: Anxiety, Bipolar, PTSD Smoking Status: Current every day smoker Past Alcohol Use History: Abuse, Heavy Past Drug Use History: Marijuana - Past Family History Mother Family Medical History: Diabetes Mellitus Father Additional Family Medical History / Comment(s): alcoholism General Exam Limitations: no limitations General appearance: alert, in no apparent distress Head exam: Present: atraumatic, normocephalic, normal inspection Eye exam: Present: normal appearance, PERRL, EOMI. Absent: scleral icterus, conjunctival injection, periorbital swelling ENT exam: Present: normal exam, normal oropharynx, mucous membranes moist Neck exam: Present: normal inspection, full ROM. Absent: tenderness, meningismus, lymphadenopathy, thyromegaly Respiratory exam: Present: normal lung sounds bilaterally. Absent: respiratory distress, wheezes, rales, rhonchi, stridor, chest wall tenderness, accessory muscle use, decreased breath sounds Cardiovascular Exam: Present: tachycardia GI/Abdominal exam: Present: distended, tenderness, normal bowel sounds. Absent: pulsatile mass Rectal exam: Present: deferred Extremities exam: Present: normal inspection, full ROM, normal capillary refill. Absent: tenderness, pedal edema, joint swelling, calf tenderness Back exam: Present: normal inspection, full ROM. Absent: tenderness, CVA tenderness (R), CVA tenderness (L), muscle spasm, paraspinal tenderness, vertebral tenderness, rash noted Neurological exam: Present: alert, oriented X3, CN II-XII intact Psychiatric exam: Present: normal affect, normal mood Skin exam: Present: warm, dry, intact, normal color. Absent: rash, cyanosis, diaphoretic, erythema, petechiae, pallor, mottled Course Vital Signs 11/29/20 11/29/20 11/29/20 10:15 11:37 12:24 Temperature 97.9 F Pulse Rate 107 H 95 96 Respiratory 18 18 18 Rate Blood Pressure 108/70 104/74 114/71 O2 Sat by Pulse 98 97 95 Oximetry Medical Decision Making - Medical Decision Making KUB x-ray shows nonspecific nonobstructive bowel gas pattern there is no evidence of free air and there is no obstruction noted. Labs are unremarkable troponin is negative at 0.012. Patient will be admitted to Dr. Hall for a paracentesis within until radiology and consult. - Lab Data Result diagrams: 11/29/20 10:50 11/29/20 10:50 Lab Results 06/28/21 06/28/21 06/28/21 Range/Units 10:50 10:50 10:50 WBC 7.7 (3.8-10.6) k/uL RBC 4.30 (4.30-5.90) m/uL Hgb 14.2 (13.0-17.5) gm/dL Hct 44.0 (39.0-53.0) % MCV 102.3 H (80.0-100.0) fL MCH 33.1 (25.0-35.0) pg MCHC 32.3 (31.0-37.0) g/dL RDW 13.2 (11.5-15.5) % Plt Count 175 (150-450) k/uL MPV 7.1 Neutrophils % 63 % Lymphocytes % 24 % Monocytes % 6 % Eosinophils % 2 % Basophils % 1 % Neutrophils # 4.9 (1.3-7.7) k/uL Lymphocytes # 1.9 (1.0-4.8) k/uL Monocytes # 0.5 (0-1.0) k/uL Eosinophils # 0.2 (0-0.7) k/uL Basophils # 0.1 (0-0.2) k/uL Macrocytosis Slight PT 11.2 (9.0-12.0) sec INR 1.1 (<1.2) APTT 25.8 (22.0-30.0) sec Sodium 134 L (137-145) mmol/L Potassium 4.2 (3.5-5.1) mmol/L Chloride 98 (98-107) mmol/L Carbon Dioxide 26 (22-30) mmol/L Anion Gap 10 mmol/L BUN 22 H (9-20) mg/dL Creatinine 0.93 (0.66-1.25) mg/dL Est GFR (CKD-EPI)AfAm >90 (>60 ml/min/1.73 sqM) Est GFR (CKD-EPI)NonAf >90 (>60 ml/min/1.73 sqM) Glucose 114 H (74-99) mg/dL Plasma Lactic Acid Luan (0.7-2.0) mmol/L Calcium 9.7 (8.4-10.2) mg/dL Total Bilirubin 1.9 H (0.2-1.3) mg/dL AST 39 (17-59) U/L ALT 13 (4-49) U/L Alkaline Phosphatase 93 (38-126) U/L Ammonia (<30) umol/L Troponin I (0.000-0.034) ng/mL Total Protein 7.2 (6.3-8.2) g/dL Albumin 3.7 (3.5-5.0) g/dL Amylase 73 (30-110) U/L Lipase 208 (23-300) U/L Urine Color Urine Appearance (Clear) Urine pH (5.0-8.0) Ur Specific [place] (1.001-1.035) Urine Protein (Negative) Urine Glucose (UA) (Negative) Urine Ketones (Negative) Urine Blood (Negative) Urine Nitrite (Negative) Urine Bilirubin (Negative) Urine Urobilinogen (<2.0) mg/dL Ur Leukocyte Esterase (Negative) 11/29/20 11/29/20 11/29/20 Range/Units 10:50 10:50 12:41 WBC (3.8-10.6) k/uL RBC (4.30-5.90) m/uL Hgb (13.0-17.5) gm/dL Hct (39.0-53.0) % MCV (80.0-100.0) fL MCH (25.0-35.0) pg MCHC (31.0-37.0) g/dL RDW (11.5-15.5) % Plt Count (150-450) k/uL MPV Neutrophils % % Lymphocytes % % Monocytes % % Eosinophils % % Basophils % % Neutrophils # (1.3-7.7) k/uL Lymphocytes # (1.0-4.8) k/uL Monocytes # (0-1.0) k/uL Eosinophils # (0-0.7) k/uL Basophils # (0-0.2) k/uL Macrocytosis PT (9.0-12.0) sec INR (<1.2) APTT (22.0-30.0) sec Sodium (137-145) mmol/L Potassium (3.5-5.1) mmol/L Chloride (98-107) mmol/L Carbon Dioxide (22-30) mmol/L Anion Gap mmol/L BUN (9-20) mg/dL Creatinine (0.66-1.25) mg/dL Est GFR (CKD-EPI)AfAm (>60 ml/min/1.73 sqM) Est GFR (CKD-EPI)NonAf (>60 ml/min/1.73 sqM) Glucose (74-99) mg/dL Plasma Lactic Acid Luan 1.5 (0.7-2.0) mmol/L Calcium (8.4-10.2) mg/dL Total Bilirubin (0.2-1.3) mg/dL AST (17-59) U/L ALT (4-49) U/L Alkaline Phosphatase (38-126) U/L Ammonia <9 (<30) umol/L Troponin I <0.012 (0.000-0.034) ng/mL Total Protein (6.3-8.2) g/dL Albumin (3.5-5.0) g/dL Amylase (30-110) U/L Lipase (23-300) U/L Urine Color Yellow Urine Appearance Clear (Clear) Urine pH 6.5 (5.0-8.0) Ur Specific [place] 1.007 (1.001-1.035) Urine Protein Negative (Negative) Urine Glucose (UA) Negative (Negative) Urine Ketones Negative (Negative) Urine Blood Negative (Negative) Urine Nitrite Negative (Negative) Urine Bilirubin Negative (Negative) Urine Urobilinogen <2.0 (<2.0) mg/dL Ur Leukocyte Esterase Negative (Negative) - EKG Data EKG shows normal: sinus rhythm, intervals (Ventricular rate of 94, MI interval 0.128, QRS of 0.84, QTC of .472) When compared to previous EKG there are: no significant change (11/11/20) Disposition Clinical Impression: Ascites Disposition: ADMITTED IP TO THIS HOSP Condition: Fair Referrals: [facility],Clinic [Primary Care Provider] - 1-2 days Decision Date: 11/29/20 Decision Time: 14:06
[2020-11-29] MEDS ORDERED: ONDANSETRON 4 MG/2 ML VIAL IVP STA (11:15)
[2020-11-29 11:34] LABS: Lactic Acid, Venous 1.5 mmol/L (0.7-2.0)
[2020-11-29 11:37] LABS: ALT 13 U/L (4-49); AST 39 U/L (17-59); African American GFR (CKD) >90 (>60 ml/min/1.73 sqM); Albumin 3.7 g/dL (3.5-5.0); Alkaline Phosphatase 93 U/L (38-126); Amylase 73 U/L (30-110); Anion Gap 10 mmol/L; Blood Urea Nitrogen 22 mg/dL (9-20); Calcium 9.7 mg/dL (8.4-10.2); Carbon Dioxide 26 mmol/L (22-30); Chloride 98 mmol/L (98-107); Glucose 114 mg/dL (74-99); Lipase 208 U/L (23-300); Non-African American GFR(CKD) >90 (>60 ml/min/1.73 sqM); Potassium 4.2 mmol/L (3.5-5.1); Sodium 134 mmol/L (137-145); Total Bilirubin 1.9 mg/dL (0.2-1.3); Total Protein 7.2 g/dL (6.3-8.2)
[2020-11-29 11:43] LABS: INR 1.1 (<1.2); Partial Thromboplastin Time 25.8 sec (22.0-30.0); Prothrombin Time 11.2 sec (9.0-12.0)
--- NOTE | 2020-11-29 11:43 | XR ---
EXAMINATION TYPE: XR KUB DATE OF EXAM: 11/29/2020 11:28 AM CLINICAL HISTORY: Abdominal distention and pain TECHNIQUE: Single supine KUB image of the abdomen is obtained. COMPARISON: None. FINDINGS: Small amount of scattered gas is seen throughout bowel loops. There is a posterior gas. No evidence of free air on upright view. Degenerative changes of the hips. IMPRESSION: 1. Nonspecific, nonobstructive bowel gas pattern. Small amount of scattered gas throughout bowel loop s. Paucity of gas within loops of bowel. No evidence of free air.
[2020-11-29 11:46] LABS: Basophils # (A) 0.1 k/uL (0-0.2); Basophils % (A) 1 %; Eosinophils # (A) 0.2 k/uL (0-0.7); Eosinophils % (A) 2 %; HGB 14.2 gm/dL (13.0-17.5); Lymphocytes # (A) 1.9 k/uL (1.0-4.8); Lymphocytes % (A) 24 %; MCH 33.1 pg (25.0-35.0); MCHC 32.3 g/dL (31.0-37.0); MCV 102.3 fL (80.0-100.0); Macrocytosis Slight; Mean Platelet Volume 7.1; Monocytes # (A) 0.5 k/uL (0-1.0); Monocytes % (A) 6 %; Neutrophils # (A) 4.9 k/uL (1.3-7.7); Neutrophils % (A) 63 %; Platelet Count 175 k/uL (150-450); RDW 13.2 % (11.5-15.5); WBC 7.7 k/uL (3.8-10.6)
[2020-11-29 13:06] LABS: Appearance,Urine Clear (Clear); Bilirubin,Urine Negative (Negative); Blood,Urine Negative (Negative); Color,Urine Yellow; Glucose,Urine (UA) Negative (Negative); Ketones,Urine Negative (Negative); Leukocyte Esterase,Urine Negative (Negative); Nitrite,Urine Negative (Negative); PH, Urine 6.5 (5.0-8.0); Protein,Urine Negative (Negative); Specific Gravity,Urine 1.007 (1.001-1.035); Urobilinogen,Urine <2.0 mg/dL (<2.0)
[2020-11-29] MEDS ORDERED: NALOXONE 0.4 MG/ML 1 ML VIAL IV PRN (13:57)
[2020-11-29] MEDS ORDERED: MORPHINE SULFATE 4 MG/ML SYRINGE IVP STA (14:06)
[2020-11-29] MEDS ORDERED: MORPHINE SULFATE 4 MG/ML SYRINGE IVP PRN (18:50)
[2020-11-29] MEDS ORDERED: MELATONIN PO PRN (20:12)
--- NOTE | 2020-11-29 21:13 | HP ---
HISTORY AND PHYSICAL DATE OF SERVICE: 11/29/2020 CHIEF COMPLAINT: Abdominal pain. HISTORY OF PRESENT ILLNESS: This 45-year-old gentleman with a past medical history of alcohol-related liver disease, cirrhosis and anxiety bipolar, PTSD, being followed by Dr. roxana Medina in the outpatient setting is complaining of abdominal distention and pain. The patient was scheduled for paracentesis recently, however the pain is getting worse in abdomen and distention is also getting worse. The patient is hungry but unable to keep eat anything down. Patient came to [facility] and was admitted for further evaluation and treatment. There is no history of fever, rigors, chills at this time. PAST HISTORY: Liver disease, cirrhosis, ETOH abuse, anxiety, bipolar depression. MEDICATIONS: Medications prior to admission include home medications are Librium, vitamin B1, Aldactone, metformin, gabapentin, Lasix, Pepcid. ALLERGIES: Tylenol. FAMILY HISTORY: History of diabetes and alcoholism in the family. SOCIAL HISTORY: History of significant alcoholism, previous history of THC. REVIEW OF SYSTEMS: ENT: No diminished vision. CARDIOVASCULAR: No angina. RESPIRATORY: No cough. GI: As mentioned earlier. : No dysuria. NERVOUS SYSTEM: No numbness or weakness. ALLERGY: No asthma or hayfever. MUSCULOSKELETAL: As mentioned earlier. HEMATOLOGY/ONCOLOGY: No history of anemia. ENDOCRINE: No history of diabetes. CONSTITUTIONAL: As mentioned earlier. PSYCH: As mentioned earlier. PHYSICAL EXAMINATION: Alert oriented x3. Pulse 83, blood pressure 102/82, respirations 18, temperature 97.2, pulse ox 98% on room air. HEENT: Conjunctivae normal. Oral mucosa moist. NECK: No jugular venous distention. No lymph node enlargement. CARDIOVASCULAR: S1 and S2 muffled. LUNGS: Breath sounds diminished at the bases. ABDOMEN: Soft, distended, rather tense. Mild diffuse discomfort on palpation. No guarding. No rigidity. No mass palpable. Bowel sounds diminished. No mass appreciated. LEGS: No edema no swelling. NERVOUS SYSTEM: As mentioned earlier. Moves all 4 limbs. No focal motor or sensory deficits. SKIN: No rashes. JOINTS: No active deformity. LABS: WBC 7.7, hemoglobin 10.2, sodium is 135. ASSESSMENT: 1. Tense significant ascites secondary to cirrhosis liver for abdominal paracentesis. 2. Hyponatremia. 3. Elevated total bilirubin. 4. History of liver cirrhosis secondary to ETOH. 5. Anxiety bipolar PTSD, history of panic attacks. 6. History of nicotine dependence. 7. History of THC. 8. Moderate protein calorie malnutrition with body mass index of 19.5. 9. FULL CODE. RECOMMENDATIONS AND DISCUSSION: In this 45-year-old gentleman who presented with multiple complex medical issues, we will monitor the patient closely, resume the home medications. Otherwise, the patient's PT/INR is normal. Recommend interventional radiology consultation and abdominal paracentesis. Prognosis guarded because of multiple complex medical issues. Further recommendations to follow. MMODL / IJN: [id number] /
[2020-11-29] MEDS: FUROSEMIDE 40 MG TAB PO SCH (21:27)
[2020-11-29] MEDS: FAMOTIDINE 20 MG TAB PO SCH (21:27)
[2020-11-29] MEDS: GABAPENTIN 300 MG CAP PO SCH (21:27)
[2020-11-30] MEDS ORDERED: THIAMINE 100 MG TAB PO SCH (07:30)
[2020-11-30 08:20] VITALS: TEMP 98.2
[2020-11-30] MEDS ORDERED: SPIRONOLACTONE 25 MG TAB PO SCH (09:00)
[2020-11-30 09:24] LABS: Basophils # (A) 0.07 X 10*3/uL (0.00-0.10); Basophils % (A) 0.9 %; Eosinophils # (A) 0.24 X 10*3/uL (0.04-0.35); HCT 37.4 % (39.6-50.0); HGB 12.6 g/dL (13.0-17.0); Lymphocytes # (A) 1.74 X 10*3/uL (0.90-5.00); Lymphocytes % (A) 21.8 %; MCH 34.6 pg (27.0-32.0); MCHC 33.7 g/dL (32.0-37.0); MCV 102.7 fL (80.0-97.0); Mean Platelet Volume 9.8 fL (9.5-12.2); Monocytes # (A) 0.78 X 10*3/uL (0.20-1.00); Monocytes % (A) 9.8 %; Neutrophils # (A) 5.14 X 10*3/uL (1.80-7.70); Neutrophils % (A) 64.4 %; Platelet Count 143 X 10*3/uL (140-440); RBC 3.64 X 10*6/uL (4.40-5.60); RDW 12.8 % (11.5-14.5); WBC 7.98 X 10*3/uL (4.50-10.00)
--- NOTE | 2020-11-30 09:28 | US ---
EXAMINATION TYPE: US abdomen limited DATE OF EXAM: 11/30/2020 COMPARISON: NONE CLINICAL HISTORY: assess for fluid pocket please. All four quadrants scanned. There is moderate to large amount of ascites in all four quadrants. IMPRESSION: 1. Moderate to large amount of ascites within the abdomen.
[2020-11-30] MEDS: ALBUMIN HUMAN 25% 50 ML in EMPTY BAG 1 BAG IVPB SCH ×4 (10:39→15:40)
[2020-11-30 13:27] VITALS: RESP 16
[2020-11-30] MEDS: GABAPENTIN 300 MG CAP PO SCH ×2 (13:32→16:24)
[2020-11-30] MEDS: FAMOTIDINE 20 MG TAB PO SCH (13:33)
--- NOTE | 2020-11-30 13:58 | US ---
Ultrasound-guided paracentesis. DATE OF EXAM: 11/30/2020 CLINICAL HISTORY: Ascites The procedure was discussed with the patient. The risks, complications, benefits, and alternatives we re discussed and any questions were answered. Informed consent was obtained. The patient was placed s upine on the ultrasound table and prepped and draped in the usual sterile fashion. All elements of maximal barrier technique were utilized. Under ultrasound guidance, access into the right lower quadrant was obtained, via the paracentesis catheter system and direct ultrasound guidanc e. Approximately 9 liters of straw-colored fluid was removed. The patient was stable throughout the proc edure and remained stable upon discharge from Department of Radiology. IMPRESSION: Successful paracentesis under ultrasound guidance.
[2020-11-30 14:14] LABS: African American GFR (CKD) 117.5 (60.0-200.0); Albumin 3.2 g/dL (3.80-4.90); Albumin/Globulin Ratio 1.07 (1.60-3.17); Anion Gap 7.2 mmol/L (4.00-12.00); BUN/Creat Ratio 24.44 Ratio (12.00-20.00); Calcium 8.5 mg/dL (8.7-10.3); Carbon Dioxide 26.8 mmol/L (21.6-31.8); Non-African American GFR(CKD) 101.4 (60.0-200.0); Potassium 4.4 mmol/L (3.5-5.5); Total Bilirubin 1.4 mg/dL (0.2-1.2); Total Protein 6.2 g/dL (6.2-8.2)
[2020-11-30 15:20] VITALS: BP 88/56; PULSE 83
[2020-11-30] MEDS: FUROSEMIDE 40 MG TAB PO SCH (16:24)
--- NOTE | 2020-11-30 21:33 | P.DS ---
Providers Date of admission: 11/29/20 16:36 Attending physician: Pee Hall Primary care physician: [facility] Course: patient is admitted for ascites. Patient underwent a paracentesis. Patient remains on Lasix and Aldactone. Patient was monitored 2-3 hours after the procedure and patient is being discharged today.patient had alcoholic cirrhosis patient quit drinking alcohol PHYSICAL EXAMINATION: GENERAL: The patient is alert and oriented x3, not in any acute distress. Well developed, well nourished. HEENT: Pupils are round and equally reacting to light. EOMI. No scleral icterus. No conjunctival pallor. Normocephalic, atraumatic. No pharyngeal erythema. No thyromegaly. CARDIOVASCULAR: S1 and S2 present. No murmurs, rubs, or gallops. PULMONARY: Chest is clear to auscultation, no wheezing or crackles. ABDOMEN: Soft, nontender, nondistended, normoactive bowel sounds. No palpable organomegaly. MUSCULOSKELETAL: No joint swelling or deformity. EXTREMITIES: No cyanosis, clubbing, or pedal edema. NEUROLOGICAL: Gross neurological examination did not reveal any focal deficits. SKIN: No rashes. assessment and plan Ascites secondary to alcoholic cirrhosis status post paracentesis -Moderate protein calorie malnutrition secondary to cirrhosis Other medical problems and has position course please refer to H&P from Dr. Hall from yesterday Patient Condition at Discharge: Fair Plan - Discharge Summary Discharge Rx Participant: Yes New Discharge Prescriptions: Continue Gabapentin 300 mg PO QID Spironolactone [Aldactone] 100 mg PO DAILY #120 tab chlordiazePOXIDE HCl [Librium] 10 mg PO TID PRN PRN Reason: Anxiety Melatonin Unknown Dose 1 tab PO HS PRN PRN Reason: Insomnia Furosemide [Lasix] 40 mg PO BID #60 tablet Thiamine [Vitamin B-1] 100 mg PO AC-BID Famotidine [Pepcid] 20 mg PO Q12H Discharge Medication List Gabapentin 300 mg PO QID 10/24/20 [History] Melatonin Unknown Dose 1 tab PO HS PRN 10/24/20 [History] chlordiazePOXIDE HCl [Librium] 10 mg PO TID PRN 10/24/20 [History] Furosemide [Lasix] 40 mg PO BID #60 tablet 10/26/20 [Rx] Spironolactone [Aldactone] 100 mg PO DAILY #120 tab 10/26/20 [Rx] Famotidine [Pepcid] 20 mg PO Q12H 11/11/20 [History] Thiamine [Vitamin B-1] 100 mg PO AC-BID 11/11/20 [History] Follow up Appointment(s)/Referral(s): Rula Vargas MD [STAFF PHYSICIAN] - 1 Week [facility],Clinic [Primary Care Provider] - 3 Days Patient Instructions/Handouts: Ascites (DC), Paracentesis (DC) Discharge Disposition: HOME SELF-CARE
--- NOTE | 2020-11-30 21:37 | P.DS ---
Providers Date of admission: 11/29/20 16:36 Attending physician: Pee Hall Primary care physician: [facility] Hospital Course: Patient is admitted for acute renal failure with creatinine going up to 3.5 baseline creatinine is to 1.2-1.3. Patient was evaluated by nephrology patient received IV fluids with improvement of creatinine to 2.8. It appears patient was subsequently cleared by nephrology to follow up as outpatient and patient was subsequently discharged. Patient appears to have BPH because of which the neurology evaluated the patient patient was cleared from their perspective as well. I PHYSICAL EXAMINATION: GENERAL: The patient is alert and oriented x3, not in any acute distress. Well developed, well nourished. HEENT: Pupils are round and equally reacting to light. EOMI. No scleral icterus. No conjunctival pallor. Normocephalic, atraumatic. No pharyngeal erythema. No thyromegaly. CARDIOVASCULAR: S1 and S2 present. No murmurs, rubs, or gallops. PULMONARY: Chest is clear to auscultation, no wheezing or crackles. ABDOMEN: Soft, nontender, nondistended, normoactive bowel sounds. No palpable organomegaly. MUSCULOSKELETAL: No joint swelling or deformity. EXTREMITIES: No cyanosis, clubbing, or pedal edema. NEUROLOGICAL: Gross neurological examination did not reveal any focal deficits. SKIN: No rashes. -Assessment and plan -Acute renal failure prerenal azotemia and mild improvement with IV fluid subsequently cleared by nephrology patient was discharged -Chronic kidney disease stage III with baseline creatinine of 1.2-1.3 secondary to hypertensive nephrosclerosis -BPH without any urinary retention patient will follow-up with urology as an outpatient -For rest of the medical problems and hospitalization course please refer to H&P from Dr. Hall from yesterday - - Patient Condition at Discharge: Fair Plan - Discharge Summary Discharge Rx Participant: Yes New Discharge Prescriptions: Continue Gabapentin 300 mg PO QID Spironolactone [Aldactone] 100 mg PO DAILY #120 tab chlordiazePOXIDE HCl [Librium] 10 mg PO TID PRN PRN Reason: Anxiety Melatonin Unknown Dose 1 tab PO HS PRN PRN Reason: Insomnia Furosemide [Lasix] 40 mg PO BID #60 tablet Thiamine [Vitamin B-1] 100 mg PO AC-BID Famotidine [Pepcid] 20 mg PO Q12H Discharge Medication List Gabapentin 300 mg PO QID 05/23/21 [History] Melatonin Unknown Dose 1 tab PO HS PRN 10/24/20 [History] chlordiazePOXIDE HCl [Librium] 10 mg PO TID PRN 10/24/20 [History] Furosemide [Lasix] 40 mg PO BID #60 tablet 10/26/20 [Rx] Spironolactone [Aldactone] 100 mg PO DAILY #120 tab 10/26/20 [Rx] Famotidine [Pepcid] 20 mg PO Q12H 11/11/20 [History] Thiamine [Vitamin B-1] 100 mg PO AC-BID 11/11/20 [History] Follow up Appointment(s)/Referral(s): Rula Vargas MD [STAFF PHYSICIAN] - 1 Week [facility],Clinic [Primary Care Provider] - 3 Days Patient Instructions/Handouts: Ascites (DC), Paracentesis (DC) Discharge Disposition: HOME SELF-CARE
== END 2020-11-30 16:32 | disposition home or self-care (01) ==
LOC: EC 10:06 → 6NMEDSUR 16:36
PROVIDERS: ADMIT Hospitalist; ATTEND Hospitalist
DX: K70.31 Alcoholic cirrhosis of liver with ascites (principal); I12.9 Hypertensive chronic kidney disease with stage 1 through stage 4 chronic kidney disease, or unspecified chronic kidney disease; N18.30 Chronic kidney disease, stage 3 unspecified; N17.9 Acute kidney failure, unspecified; E44.0 Moderate protein-calorie malnutrition; Z68.1 Body mass index [BMI] 19.9 or less, adult; N40.0 Benign prostatic hyperplasia without lower urinary tract symptoms; F41.0 Panic disorder [episodic paroxysmal anxiety]; F43.10 Post-traumatic stress disorder, unspecified; F41.9 Anxiety disorder, unspecified; F10.10 Alcohol abuse, uncomplicated; F31.30 Bipolar disorder, current episode depressed, mild or moderate severity, unspecified; E87.1 Hypo-osmolality and hyponatremia; F17.200 Nicotine dependence, unspecified, uncomplicated; Z20.822 Contact with and (suspected) exposure to COVID-19; Z79.899 Other long term (current) drug therapy; Z88.8 Allergy status to other drugs, medicaments and biological substances; Z83.3 Family history of diabetes mellitus; Z81.1 Family history of alcohol abuse and dependence
CPT/HCPCS: 96376; 96374; 96375; 99285; 36415; 93005; 80053 ×2; 82140; 82150; 83605; 83690; 84484; 85025 ×2; 85610; 85730; 81003; 87635; 74018; 76705; 49083; G0378 ×2; J2270; J2405; P9047

== ENCOUNTER 2020-12-10 08:38 | Day surgery (SDC) | payer OTHER ==
[2020-12-10 09:26] VITALS: TEMP 98.5
[2020-12-10 09:28] LABS: African American GFR (CKD) >90 (>60 ml/min/1.73 sqM); Non-African American GFR(CKD) 87 (>60 ml/min/1.73 sqM)
[2020-12-10 09:30] LABS: Platelet Count 147 k/uL (150-450)
[2020-12-10] MEDS: ALBUMIN HUMAN 25% 50 ML in EMPTY BAG 1 BAG IVPB SCH ×4 (10:33→11:22)
[2020-12-10 12:05] VITALS: RESP 16
--- NOTE | 2020-12-10 12:18 | US ---
EXAMINATION TYPE: US paracentesis abd w/image DATE OF EXAM: 12/10/2020 COMPARISON: NONE HISTORY: Ascites. PROCEDURE: Maximal barrier technique was utilized. The skin overlying a suitable pocket of fluid was localized with ultrasound and the overlying skin was prepped and draped. Ultrasound was utilized with sterile technique. Lidocaine was used for local anesthesia and a skin colleen made with a scalpel. Catheter was advanced under direct ultrasound guidance into a suitable pocket of fluid and approximately 8.4 liter s of serous fluid were removed. Catheter was withdrawn and hemostasis achieved. There is no immedia te complication; the patient is discharged in stable condition. IMPRESSION: STATUS POST ULTRASOUND GUIDED PARACENTESIS FOR PALLIATION OF ASCITES. THIS PROCEDURE WA S PERFORMED BY THE UNDERSIGNED.
[2020-12-10 12:27] VITALS: BP 89/55; PULSE 90
== END 2020-12-10 12:35 | disposition home or self-care (01) ==
LOC: RADPROMAIN 08:38
PROVIDERS: ATTEND Internal Medicine Gastroenterology
DX: R18.8 Other ascites (principal)
CPT/HCPCS: 82565; 85049; 85610; 36415; 49083; P9047

== ENCOUNTER 2020-12-24 08:44 | Day surgery (SDC) | payer OTHER ==
[2020-12-24 09:00] VITALS: TEMP 97.7
[2020-12-24 09:17] LABS: Mean Platelet Volume 8.7; Platelet Count 187 k/uL (150-450)
[2020-12-24 09:22] LABS: Prothrombin Time 11.1 sec (9.0-12.0)
[2020-12-24] MEDS: ALBUMIN HUMAN 25% 50 ML in EMPTY BAG 1 BAG IVPB SCH ×4 (10:03→10:54)
[2020-12-24 11:52] VITALS: RESP 16
[2020-12-24 12:01] VITALS: BP 89/53
[2020-12-24 12:08] VITALS: PULSE 101
--- NOTE | 2020-12-24 13:44 | US ---
EXAMINATION TYPE: US paracentesis abd w/image DATE OF EXAM: 12/24/2020 COMPARISON: NONE HISTORY: Ascites. PROCEDURE: Maximal barrier technique was utilized. The skin overlying a suitable pocket of fluid was localized with ultrasound and the overlying skin was prepped and draped. Ultrasound was utilized with sterile technique. Lidocaine was used for local anesthesia and a skin colleen made with a scalpel. Catheter was advanced under direct ultrasound guidance into a suitable pocket of fluid and approximately 10.5 lite rs of serous fluid were removed. Catheter was withdrawn and hemostasis achieved. There is no immedi ate complication; the patient is discharged in stable condition. IMPRESSION: STATUS POST ULTRASOUND GUIDED PARACENTESIS FOR PALLIATION OF ASCITES. THIS PROCEDURE WA S PERFORMED BY THE UNDERSIGNED.
== END 2020-12-24 12:15 | disposition home or self-care (01) ==
LOC: RADPROMAIN 08:44
PROVIDERS: ATTEND Internal Medicine Gastroenterology
DX: K70.31 Alcoholic cirrhosis of liver with ascites (principal)
CPT/HCPCS: 82565; 85049; 85610; 36415; 49083; P9047

== ENCOUNTER 2021-01-04 13:43 | Inpatient (IN) | payer OTHER ==
[2021-01-04] MEDS ORDERED: ONDANSETRON 4 MG/2 ML VIAL IVP STA (14:23)
[2021-01-04] MEDS ORDERED: MORPHINE SULFATE 4 MG/ML SYRINGE IV STA (14:23)
--- NOTE | 2021-01-04 14:29 | ED ---
Abdominal Pain HPI - General Chief Complaint: Abdominal Pain Stated Complaint: ABD pain Source: patient, RN notes reviewed, old records reviewed Mode of arrival: wheelchair Limitations: no limitations - History of Present Illness Initial Comments: 45-year-old white male, alert and oriented 4, presents to the emergency room with diffuse abdominal pain with intermittent sharp stabbing chest pain. Patient states that the pain has been worse over the past 5 days. He had a para centesis done on 12/24/2020 and is on a two-week scheduled to have his fluid drained however Dr. Vargas suggested he should be on a once a week schedule but they were unable to accommodate him this week. He states his next scheduled paracentesis is Sunday. He states that the pain is significant in his right lower abdomen and he's having difficulty breathing with sharp chest pain which is new. He denies any fevers or vomiting but does state he is nauseous. He states that the abdominal pain is mostly located on the right side and does feel different than normal ascites. MD Complaint: abdominal pain -: days(s) (5) Location: diffuse Radiation: chest (Intermittent sharp stabbing chest pain) Severity: severe Severity scale (1-10): 10 Quality: sharp Consistency: constant Improves With: nothing Worsens With: movement Associated Symptoms: anorexia - Related Data Home Medications Medication Instructions Recorded Confirmed Gabapentin 300 mg PO QID 10/24/20 12/24/20 chlordiazePOXIDE HCl [Librium] 10 mg PO TID PRN 10/24/20 12/24/20 Famotidine [Pepcid] 20 mg PO Q12H 11/11/20 12/24/20 Thiamine [Vitamin B-1] 100 mg PO AC-BID 11/11/20 12/24/20 Multivitamins, Thera [Multivitamin 1 tab PO DAILY 12/02/20 12/24/20 (formulary)] Previous Rx's Medication Instructions Recorded Furosemide [Lasix] 40 mg PO BID #60 tablet 10/26/20 Spironolactone [Aldactone] 100 mg PO DAILY #120 tab 10/26/20 Allergies Allergy/AdvReac Type Severity Reaction Status Date / Time acetaminophen [From Tylenol] Allergy Unknown Verified 01/04/21 13:49 Review of Systems ROS Statement: Those systems with pertinent positive or pertinent negative responses have been documented in the HPI. ROS Other: All systems not noted in ROS Statement are negative. Past Medical History Past Medical History: Hyperlipidemia, Hypertension, Liver Disease, Seizure Disorder, Syncope Additional Past Medical History / Comment(s): hx of ETOH ABUSE-, cirrhosis History of Any Multi-Drug Resistant Organisms: None Reported Past Surgical History: No Surgical Hx Reported Additional Past Surgical History / Comment(s): paracentesis Past Anesthesia/Blood Transfusion Reactions: No Reported Reaction Past Psychological History: Anxiety, Bipolar, Depression, Panic Disorder, PTSD Smoking Status: Current every day smoker Past Alcohol Use History: Abuse, Heavy Past Drug Use History: Marijuana - Past Family History Mother Family Medical History: Diabetes Mellitus, Hypertension Father History Unknown: Yes Family Medical History: Hypertension Additional Family Medical History / Comment(s): alcoholism General Exam Limitations: no limitations General appearance: alert Head exam: Present: atraumatic, normocephalic, normal inspection Eye exam: Present: normal appearance, PERRL, EOMI. Absent: scleral icterus, conjunctival injection, periorbital swelling ENT exam: Present: normal exam, normal oropharynx, mucous membranes moist Neck exam: Present: normal inspection, full ROM. Absent: tenderness, meningismus, lymphadenopathy, thyromegaly Respiratory exam: Present: normal lung sounds bilaterally. Absent: respiratory distress, wheezes, rales, rhonchi, stridor, accessory muscle use Cardiovascular Exam: Present: tachycardia GI/Abdominal exam: Present: distended, tenderness. Absent: guarding, mass Extremities exam: Present: normal inspection, full ROM, normal capillary refill. Absent: tenderness, pedal edema, joint swelling, calf tenderness Back exam: Present: normal inspection, full ROM. Absent: tenderness, CVA tenderness (R), CVA tenderness (L), muscle spasm, paraspinal tenderness, vertebral tenderness Neurological exam: Present: alert, oriented X3, CN II-XII intact Psychiatric exam: Present: normal affect, normal mood, anxious Skin exam: Present: warm, dry, intact, normal color. Absent: rash, cyanosis, diaphoretic, erythema, urticaria, petechiae, pallor, mottled, abrasion Course Vital Signs 01/04/21 01/04/21 01/04/21 13:45 14:48 16:00 Temperature 97.9 F Pulse Rate 101 H Respiratory 19 18 18 Rate Blood Pressure 99/68 O2 Sat by Pulse 100 Oximetry 01/04/21 01/04/21 01/04/21 17:00 18:00 19:00 Temperature Pulse Rate 91 Respiratory 18 18 18 Rate Blood Pressure 98/62 O2 Sat by Pulse 95 Oximetry Medical Decision Making - Medical Decision Making The patient is afebrile , WBC count is 11. potassium is 5.9, troponin is negative at 0.012, EKG shows no ST elevation. sodium is 125, BUN is 67, creatinine is 2.12. Patient will be admitted hyperkalemia with LETITIA, ascites and ileus. Case discussed with Dr. Oliver. - Lab Data Result diagrams: 01/04/21 Unknown 01/04/21 Unknown Lab Results 01/04/21 01/04/21 Range/Units 14:50 15:01 Troponin I <0.012 (0.000-0.034) ng/mL Urine Color Yellow Urine Appearance Clear (Clear) Urine pH 5.0 (5.0-8.0) Ur Specific [place] 1.010 (1.001-1.035) Urine Protein Negative (Negative) Urine Glucose (UA) Negative (Negative) Urine Ketones Negative (Negative) Urine Blood Negative (Negative) Urine Nitrite Negative (Negative) Urine Bilirubin Negative (Negative) Urine Urobilinogen <2.0 (<2.0) mg/dL Ur Leukocyte Esterase Negative (Negative) - EKG Data EKG shows normal: sinus rhythm (Ventricular rate of 86, CT interval 0.138, QRS of 0.84, QTC of 0.430) When compared to previous EKG there are: no significant change (11-29-20) Disposition Clinical Impression: Ascites, LETITIA (acute kidney injury), Hyperkalemia, Ileus Disposition: ADMITTED IP TO THIS [facility] Decision Date: 01/04/21 Decision Time: 16:49
--- NOTE | 2021-01-04 15:40 | XR ---
EXAMINATION TYPE: XR chest 2V DATE OF EXAM: 01/04/2021 COMPARISON: 10/24/2020 HISTORY: 45-year-old male abdominal pain, shortness of breath TECHNIQUE: PA and lateral views FINDINGS: Heart normal size. Aorta and pulmonary vasculature within normal limits. A band of atelectasis or sca r at the left lower lung is unchanged. Subtle 5 mm nodularity right infrahilar region is unchanged fo r approximately 2 months. Suspect a prominent vessel on end. No consolidation or pleural effusion. IMPRESSION: 1. 5 mm nodularity at the right infrahilar region is unchanged for 2 months and is suspected to repre sent a prominent vessel on end. Additional 3-6 month follow-up radiograph recommended to reassess. 2. Band of atelectasis or scar at the left base. Otherwise, no acute process seen.
[2021-01-04 15:42] LABS: Appearance,Urine Clear (Clear); Bilirubin,Urine Negative (Negative); Blood,Urine Negative (Negative); Color,Urine Yellow; Glucose,Urine (UA) Negative (Negative); Ketones,Urine Negative (Negative); Leukocyte Esterase,Urine Negative (Negative); Nitrite,Urine Negative (Negative); Protein,Urine Negative (Negative); Urobilinogen,Urine <2.0 mg/dL (<2.0)
--- NOTE | 2021-01-04 15:42 | XR ---
EXAMINATION TYPE: XR KUB DATE OF EXAM: 01/04/2021 Comparison: 11/29/2020 Clinical History: 45-year-old male abdominal pain Findings: Small air-fluid levels within small bowel loops in the upper to mid left side of the abdomen. General ized hazy density. Scattered mild stool and scattered colonic air. No dilated small bowel loops are i dentified. No evidence for free intraperitoneal air. Phlebolith in the left side of the pelvis. Impression: 1. Generalized hazy density suggesting underlying ascites fluid. 2. A few small air-fluid levels in the left side of the abdomen could reflect a regional ileus or ent eritis. 3. Overall nonobstructive bowel gas pattern. No free air.
[2021-01-04 16:00] LABS: Albumin 3.6 g/dL (3.5-5.0); Calcium 9.6 mg/dL (8.4-10.2); Potassium 5.9 mmol/L (3.5-5.1); Total Protein 6.4 g/dL (6.3-8.2)
[2021-01-04 16:09] LABS: Prothrombin Time 10.3 sec (9.0-12.0)
[2021-01-04 16:14] LABS: Basophils # (A) 0.1 k/uL (0-0.2); Basophils % (A) 1 %; Eosinophils # (A) 0.1 k/uL (0-0.7); Eosinophils % (A) 1 %; HCT 42.3 % (39.0-53.0); HGB 14.5 gm/dL (13.0-17.5); Lymphocytes # (A) 1.9 k/uL (1.0-4.8); Lymphocytes % (A) 17 %; MCH 34.2 pg (25.0-35.0); MCHC 34.2 g/dL (31.0-37.0); Mean Platelet Volume 7.9; Monocytes # (A) 0.9 k/uL (0-1.0); Monocytes % (A) 8 %; Neutrophils # (A) 7.8 k/uL (1.3-7.7); Neutrophils % (A) 72 %; Platelet Count 188 k/uL (150-450); RBC 4.24 m/uL (4.30-5.90); RDW 13.4 % (11.5-15.5)
[2021-01-04 16:21] LABS: Partial Thromboplastin Time 18.2 sec (22.0-30.0)
[2021-01-04] MEDS ORDERED: NALOXONE 0.4 MG/ML 1 ML VIAL IV PRN (16:44)
[2021-01-04] MEDS ORDERED: MORPHINE SULFATE 4 MG/ML SYRINGE IVP STA (16:47)
[2021-01-04] MEDS: SODIUM CHLORIDE 0.9% 1,000 ML IV SCH (17:23)
[2021-01-04] MEDS: HYDROmorphone 0.5 MG/0.5 ML SYRINGE IVP PRN (22:54)
[2021-01-04] MEDS: ONDANSETRON 4 MG/2 ML VIAL IVP PRN (22:54)
[2021-01-04] MEDS ORDERED: MELATONIN 3 MG TABLET PO PRN (23:00)
[2021-01-05] MEDS ORDERED: CALCIUM CARBONATE 500 MG CHEWABLE PO PRN (02:13)
[2021-01-05] MEDS: HYDROmorphone 0.5 MG/0.5 ML SYRINGE IVP PRN ×2 (08:04→21:22)
[2021-01-05] MEDS: ONDANSETRON 4 MG/2 ML VIAL IVP PRN (08:04)
[2021-01-05] MEDS: SODIUM CHLORIDE 0.9% 1,000 ML IV SCH (08:09)
--- NOTE | 2021-01-05 10:32 | P.NPCON ---
History of Present Illness - Reason for Consult acute renal failure - History of Present Illness Reason for consult: Acute kidney injury History of present illness: I sent patient is a 45-year-old male seen in consultation for acute kidney injury. Creatinine was 2.12 on admission. Labs from today are pending. Patient's creatinine from 12/24/2020 was 1.84 and prior to that it was near 1. Patient presented to the hospital due to abdominal distention. He has alcohol-induced liver cirrhosis and undergoes paracentesis every 2 weeks. Patient states he couldn't wait for his next paracentesis and felt that he needed it sooner. Patient states he does take Lasix as well as spironolactone at home. He is currently on IV fluids. Hemodynamically he stable. He denies use of nonsteroidals. No family history of renal disease. No history of diabetes. Sodium level was 125 and potassium was 5.9 on ad mission. Vital signs are stable. General: The patient appeared well nourished and normally developed. HEENT: Head exam is unremarkable. Neck is without jugular venous distension. LUNGS: Breath sounds decreased. HEART: Rate and Rhythm are regular. ABDOMEN: Soft, distention noted. EXTREMITITES: No edema. Past Medical History Past Medical History: Hyperlipidemia, Hypertension, Liver Disease, Seizure Disorder, Syncope Additional Past Medical History / Comment(s): hx of ETOH ABUSE-, cirrhosis History of Any Multi-Drug Resistant Organisms: None Reported Past Surgical History: No Surgical Hx Reported Additional Past Surgical History / Comment(s): paracentesis Past Anesthesia/Blood Transfusion Reactions: No Reported Reaction Past Psychological History: Anxiety, Bipolar, Depression, Panic Disorder, PTSD Smoking Status: Current every day smoker Past Alcohol Use History: Abuse, Heavy Past Drug Use History: Marijuana - Past Family History Mother Family Medical History: Diabetes Mellitus, Hypertension Father History Unknown: Yes Family Medical History: Hypertension Additional Family Medical History / Comment(s): alcoholism Medications and Allergies Home Medications Medication Instructions Recorded Confirmed Type Gabapentin 300 mg PO QID 10/24/20 01/04/21 History Famotidine [Pepcid] 20 mg PO Q12H 11/11/20 01/04/21 History Thiamine [Vitamin B-1] 100 mg PO AC-BID 11/11/20 01/04/21 History Multivitamins, Thera [Multivitamin 1 tab PO DAILY 12/02/20 01/04/21 History (formulary)] Furosemide [Lasix] 40 mg PO DAILY 01/04/21 01/04/21 History Melatonin 3 mg PO HS PRN 01/04/21 01/04/21 History Spironolactone 100 mg PO DAILY 01/04/21 01/04/21 History Allergies Allergy/AdvReac Type Severity Reaction Status Date / Time acetaminophen [From Tylenol] Allergy Unknown Verified 01/04/21 13:49 Physical Exam Vitals: Vital Signs Temp Pulse Pulse Resp BP BP Pulse Ox 01/05/21 08:00 78 16 01/05/21 04:56 97.7 F 78 16 98/68 97 01/04/21 22:02 98 F 85 16 107/71 100 01/04/21 19:00 18 01/04/21 18:00 18 01/04/21 17:00 91 18 98/62 95 01/04/21 16:00 18 01/04/21 14:48 18 01/04/21 13:45 97.9 F 101 H 19 99/68 100 Intake and Output 01/04/21 01/05/21 01/05/21 22:59 06:59 14:59 Other: Voiding Method Urinal Urinal # Voids 2 Weight 69.173 kg Results - Lab Results Most recent lab results Calcium 9.6 mg/dL (8.4-10.2) 01/04/21 Unknown 01/04/21 Unknown 01/04/21 Unknown Assessment and Plan Plan: Assessment: 1. Acute kidney injury secondary to ATN secondary to hepatorenal syndrome. Creatinine 2.12 on admission. Creatinine in December 2020 was near 1. UA benign. 2. Alcohol-induced liver cirrhosis. 3. Ascites. 4. Hypervolemic hyponatremia. 5. Hyperkalemia secondary to spironolactone, acute kidney injury and metabolic acidosis. 6. Metabolic acidosis secondary to acute kidney injury. Plan: Hep-Lock IV fluids. Plan for paracentesis today. I will give him 25 g of albumin pre-and additional 25 g of albumin post-paracentesis. Add Lasix 40 mg once daily. Hold spironolactone due to hyperkalemia. Avoid nephrotoxins. Check labs today. Continue to monitor renal function and urine output. Check urine sodium level. Check renal ultrasound. Thank you for the consultation. I will continue to follow the patient with you during his hospital stay.
[2021-01-05] MEDS ORDERED: GABAPENTIN 100 MG CAP PO PRN (10:36)
[2021-01-05] MEDS: FAMOTIDINE 20 MG TAB PO SCH ×2 (11:38→21:22)
[2021-01-05] MEDS: FUROSEMIDE 40 MG TAB PO SCH (11:39)
[2021-01-05 12:10] LABS: ALT 19 U/L (4-49); AST 43 U/L (17-59); African American GFR (CKD) 48 (>60 ml/min/1.73 sqM); Albumin 2.8 g/dL (3.5-5.0); Alkaline Phosphatase 77 U/L (38-126); Anion Gap 7 mmol/L; Blood Urea Nitrogen 61 mg/dL (9-20); Calcium 9.2 mg/dL (8.4-10.2); Carbon Dioxide 20 mmol/L (22-30); Chloride 98 mmol/L (98-107); Globulin 2.8 g/dL; Glucose 137 mg/dL (74-99); Magnesium 2.4 mg/dL (1.6-2.3); Non-African American GFR(CKD) 41 (>60 ml/min/1.73 sqM); Potassium 5.7 mmol/L (3.5-5.1); Sodium 125 mmol/L (137-145); Total Protein 5.6 g/dL (6.3-8.2)
--- NOTE | 2021-01-05 14:02 | US ---
EXAMINATION TYPE: US kidneys/renal and bladder DATE OF EXAM: 01/05/2021 COMPARISON: US CLINICAL HISTORY: letitia. LETITIA EXAM MEASUREMENTS: Right Kidney: 11.0 x 4.5 x 5.7 cm Left Kidney: 10.2 x 5.0 x 5.2 cm Right Kidney: Appeared wnl Left Kidney: Appeared wnl Bladder: wnl Bilateral Jets seen: Yes Spleen enlarged Severe ascites present IMPRESSION: 1. Marked ascites. 2. Renal ultrasound otherwise appears normal
[2021-01-05] MEDS: ALBUMIN HUMAN 25% 50 ML in EMPTY BAG 1 BAG IVPB SCH ×4 (14:06→17:25)
--- NOTE | 2021-01-05 14:35 | P.HPIM ---
History of Present Illness 45-year-old male came in with the significant abdominal discomfort because of the worsening ascites patient has scheduled paracentesis once a day which 2 weeks because of significant discomfort patient came to ER. Patient will under go ultrasound-guided paracentesis today patient is also found to be in renal failure with creatinine of 2.12 baseline is around 1. Patient was a valid by nephrology patient's sodium was also low at 125 patient is obese bit hyperkalemic with potassium of 5.7 this is secondary to renal failure as well as a high dose of Aldactone. REVIEW OF SYSTEMS: CONSTITUTIONAL: No fever, no malaise, no fatigue. HEENT: No recent visual problems or hearing problems. Denied any sore throat. CARDIOVASCULAR: No chest pain, orthopnea, PND, no palpitations, no syncope. PULMONARY: No shortness of breath, no cough, no hemoptysis. GASTROINTESTINAL: No diarrhea, no nausea, no vomiting. NEUROLOGICAL: No headaches, no weakness, no numbness. HEMATOLOGICAL: Denies any bleeding or petechiae. GENITOURINARY: Denies any burning micturition, frequency, or urgency. MUSCULOSKELETAL/RHEUMATOLOGICAL: Denies any joint pain, swelling, or any muscle pain. ENDOCRINE: Denies any polyuria or polydipsia. The rest of the 14-point review of systems is negative. PHYSICAL EXAMINATION: GENERAL: The patient is alert and oriented x3, not in any acute distress. Thin built cachectic HEENT: Pupils are round and equally reacting to light. EOMI. No scleral icterus. No conjunctival pallor. Normocephalic, atraumatic. No pharyngeal erythema. No thyromegaly. CARDIOVASCULAR: S1 and S2 present. No murmurs, rubs, or gallops. PULMONARY: Chest is clear to auscultation, no wheezing or crackles. ABDOMEN: Soft, nontender, distended with shifting dullness and fluid thrill normoactive bowel sounds. No palpable organomegaly. MUSCULOSKELETAL: No joint swelling or deformity. EXTREMITIES: No cyanosis, clubbing, or pedal edema. NEUROLOGICAL: Gross neurological examination did not reveal any focal deficits. SKIN: No rashes. Assessment and plan -abdominal discomfort secondary to abdominal distention no clinical evidence of spontaneous bacterial peritonitis, patient will undergo ultrasound guided paracentesis. -Acute renal failure: Probably secondary to acute necrosis hepatorenal syndrome. IV fluids will be discontinued and patient the will be started on Lasix because of hypovolemia nephrology evaluated the patient. -Hyperkalemia secondary to Aldactone which is being held and secondary to acute renal failure -Alcoholic cirrhosis patient quit drinking alcohol about 4 months ago -Hyponatremia hypovolemic hyponatremia: Patient was started on Lasix. -Metabolic acidosis both anion gap and non-anion gap secondary to renal failure DVT prophylaxis: Lovenox Past Medical History Past Medical History: Hyperlipidemia, Hypertension, Liver Disease, Seizure Disorder, Syncope Additional Past Medical History / Comment(s): hx of ETOH ABUSE-, cirrhosis History of Any Multi-Drug Resistant Organisms: None Reported Past Surgical History: No Surgical Hx Reported Additional Past Surgical History / Comment(s): paracentesis Past Anesthesia/Blood Transfusion Reactions: No Reported Reaction Past Psychological History: Anxiety, Bipolar, Depression, Panic Disorder, PTSD Smoking Status: Current every day smoker Past Alcohol Use History: Abuse, Heavy Past Drug Use History: Marijuana - Past Family History Mother Family Medical History: Diabetes Mellitus, Hypertension Father History Unknown: Yes Family Medical History: Hypertension Additional Family Medical History / Comment(s): alcoholism Medications and Allergies Home Medications Medication Instructions Recorded Confirmed Type Gabapentin 300 mg PO QID 10/24/20 01/04/21 History Famotidine [Pepcid] 20 mg PO Q12H 11/11/20 01/04/21 History Thiamine [Vitamin B-1] 100 mg PO AC-BID 11/11/20 01/04/21 History Multivitamins, Thera [Multivitamin 1 tab PO DAILY 12/02/20 01/04/21 History (formulary)] Furosemide [Lasix] 40 mg PO DAILY 01/04/21 01/04/21 History Melatonin 3 mg PO HS PRN 01/04/21 01/04/21 History Spironolactone 100 mg PO DAILY 01/04/21 01/04/21 History Allergies Allergy/AdvReac Type Severity Reaction Status Date / Time acetaminophen [From Tylenol] Allergy Unknown Verified 01/04/21 13:49 Physical Exam Vitals: Vital Signs Temp Pulse Pulse Resp BP BP BP 01/05/21 14:22 82 18 103/61 01/05/21 12:18 97.6 F 93 17 103/68 01/05/21 08:00 78 16 01/05/21 04:56 97.7 F 78 16 98/68 01/04/21 22:02 98 F 85 16 107/71 01/04/21 19:00 18 01/04/21 18:00 18 01/04/21 17:00 91 18 98/62 01/04/21 16:00 18 01/04/21 14:48 18 Pulse Ox 01/05/21 14:22 97 01/05/21 12:18 97 01/05/21 08:00 01/05/21 04:56 97 01/04/21 22:02 100 01/04/21 19:00 01/04/21 18:00 01/04/21 17:00 95 01/04/21 16:00 01/04/21 14:48 Intake and Output 01/04/21 01/05/21 01/05/21 22:59 06:59 14:59 Other: Voiding Method Urinal Urinal # Voids 2 Weight 69.173 kg Results CBC & Chem 7: 01/04/21 Unknown 01/05/21 10:49 Labs: Abnormal Lab Results - Last 24 Hours (Table) 01/04/21 01/04/21 01/04/21 Range/Units Unknown Unknown Unknown WBC 11.0 H (3.8-10.6) k/uL RBC 4.24 L (4.30-5.90) m/uL Neutrophils # 7.8 H (1.3-7.7) k/uL APTT 18.2 L (22.0-30.0) sec Sodium 125 L (137-145) mmol/L Potassium 5.9 H (3.5-5.1) mmol/L Chloride 95 L (98-107) mmol/L Carbon Dioxide 20 L (22-30) mmol/L BUN 67 H (9-20) mg/dL Creatinine 2.12 H (0.66-1.25) mg/dL Glucose (74-99) mg/dL Magnesium (1.6-2.3) mg/dL Total Protein (6.3-8.2) g/dL Albumin (3.5-5.0) g/dL 01/05/21 Range/Units 10:49 WBC (3.8-10.6) k/uL RBC (4.30-5.90) m/uL Neutrophils # (1.3-7.7) k/uL APTT (22.0-30.0) sec Sodium 125 L (137-145) mmol/L Potassium 5.7 H (3.5-5.1) mmol/L Chloride (98-107) mmol/L Carbon Dioxide 20 L (22-30) mmol/L BUN 61 H (9-20) mg/dL Creatinine 1.89 H (0.66-1.25) mg/dL Glucose 137 H (74-99) mg/dL Magnesium 2.4 H (1.6-2.3) mg/dL Total Protein 5.6 L (6.3-8.2) g/dL Albumin 2.8 L (3.5-5.0) g/dL Thrombosis Risk Factor Assmnt - Choose All That Apply Any of the Below Risk Factors Present?: Yes Each Factor Represents 1 point: Age 41-60 years Thrombosis Risk Factor Assessment Total Risk Factor Score: 1 Thrombosis Risk Factor Assessment Level: Low Risk
[2021-01-05] MEDS: THIAMINE 100 MG TAB PO SCH (17:11)
[2021-01-06 06:10] VITALS: RESP 18
[2021-01-06 06:57] LABS: ALT 15 U/L (4-49); AST 36 U/L (17-59); African American GFR (CKD) 61 (>60 ml/min/1.73 sqM); Albumin 2.7 g/dL (3.5-5.0); Albumin/Globulin Ratio 1.2; Alkaline Phosphatase 78 U/L (38-126); Anion Gap 5 mmol/L; Blood Urea Nitrogen 49 mg/dL (9-20); Carbon Dioxide 25 mmol/L (22-30); Chloride 99 mmol/L (98-107); Globulin 2.2 g/dL; Glucose 131 mg/dL (74-99); Magnesium 2.1 mg/dL (1.6-2.3); Non-African American GFR(CKD) 53 (>60 ml/min/1.73 sqM); Potassium 4.8 mmol/L (3.5-5.1); Sodium 129 mmol/L (137-145); Total Bilirubin 0.7 mg/dL (0.2-1.3); Total Protein 4.9 g/dL (6.3-8.2)
[2021-01-06] MEDS: THIAMINE 100 MG TAB PO SCH (08:02)
[2021-01-06] MEDS: FUROSEMIDE 40 MG TAB PO SCH (08:02)
--- NOTE | 2021-01-06 08:48 | P.PN ---
Subjective Patient is seen in follow for acute kidney injury. Renal function improving. Underwent paracentesis on January 05 with 12 L drained. Good urine output. Potassium level better. Vital signs are stable. General: The patient appeared well nourished and normally developed. HEENT: Head exam is unremarkable. Neck is without jugular venous distension. LUNGS: Breath sounds decreased. HEART: Rate and Rhythm are regular. ABDOMEN: Soft, mild distention noted. EXTREMITITES: No edema. Objective - Vital Signs Vital signs: Vital Signs Temp 97.9 F 01/06/21 05:00 Pulse 88 01/06/21 05:00 Resp 18 01/06/21 05:00 BP 94/56 01/06/21 05:00 Pulse Ox 96 01/06/21 05:00 Intake & Output 01/05/21 01/06/21 01/06/21 18:59 06:59 18:59 Intake Total 450 555 Balance 450 555 Weight 57.2 kg Intake: IV 80 ns@10 80 Intake, IV Titration 450 Amount Albumin Human 25% 50 ml 50 In Empty Bag 1 bag @ 50 mls/hr IVPB Q1H [facility] Rx#: [id number] Albumin Human 25% 50 ml 50 In Empty Bag 1 bag @ 50 mls/hr IVPB Q1H [facility] Rx#: [id number] Sodium Chloride 0.9% 1, 350 000 ml @ 75 mls/hr IV . [id number] [facility] Rx#:[id number] Oral 475 Other: Voiding Method Urinal Toilet Urinal # Voids 2 - Labs CBC & Chem 7: 01/04/21 Unknown 01/06/21 06:07 Labs: Abnormal Lab Results - Last 24 Hours (Table) 01/05/21 01/06/21 Range/Units 10:49 06:07 Sodium 125 L 129 L (137-145) mmol/L Potassium 5.7 H (3.5-5.1) mmol/L Carbon Dioxide 20 L (22-30) mmol/L BUN 61 H 49 H (9-20) mg/dL Creatinine 1.89 H 1.55 H (0.66-1.25) mg/dL Glucose 137 H 131 H (74-99) mg/dL Magnesium 2.4 H (1.6-2.3) mg/dL Total Protein 5.6 L 4.9 L (6.3-8.2) g/dL Albumin 2.8 L 2.7 L (3.5-5.0) g/dL Assessment and Plan Plan: Assessment: 1. Acute kidney injury secondary to ATN secondary to hepatorenal syndrome. Creatinine 2.12 on admission - 1.55 today. Creatinine in December 2020 was near 1. UA benign.no hydronephrosis noted on kidney ultrasound. 2. Alcohol-induced liver cirrhosis. 3. Ascites. Paracentesis done January 05 with 12 L drained. 4. Hypervolemic hyponatremia. Better. 5. Hyperkalemia secondary to spironolactone, acute kidney injury and metabolic acidosis. Improved. 6. Metabolic acidosis secondary to acute kidney injury. improved. Plan: Maintain oral Lasix. Add spironolactone 25 mg twice daily. Low-salt diet. 1200 mL fluid restriction. Continue to monitor renal function and urine output
[2021-01-06] MEDS ORDERED: SPIRONOLACTONE 25 MG TAB PO SCH (09:00)
[2021-01-06] MEDS ORDERED: MULTIVITAMINS, THERA 1 EACH TAB PO SCH (09:00)
[2021-01-06] MEDS: ALBUMIN HUMAN 25% 50 ML in EMPTY BAG 1 BAG IVPB SCH ×2 (09:53→11:12)
[2021-01-06] MEDS: FAMOTIDINE 20 MG TAB PO SCH (09:54)
--- NOTE | 2021-01-06 10:22 | US ---
Ultrasound-guided paracentesis. DATE OF EXAM: 01/05/2021 CLINICAL HISTORY: Ascites The procedure was discussed with the patient. The risks, complications, benefits, and alternatives we re discussed and any questions were answered. Informed consent was obtained. The patient was placed s upine on the ultrasound table and prepped and draped in the usual sterile fashion. All elements of maximal barrier technique were utilized. Under ultrasound guidance, access into the right lower quadrant was obtained, via the paracentesis catheter system and direct ultrasound guidanc e. Approximately 12.1 liters of straw-colored fluid was removed. The patient was stable throughout the p rocedure and remained stable upon discharge from Department of Radiology. IMPRESSION: Successful paracentesis under ultrasound guidance.
[2021-01-06 12:30] VITALS: BP 88/44; PULSE 80; TEMP 97.4
[2021-01-06 13:28] VITALS: BMI 17.6
--- NOTE | 2021-01-07 03:16 | P.DS ---
Providers Date of admission: 01/04/21 16:39 Expected date of discharge: 01/06/21 Attending physician: Misbah Deshpande MD Consults: 01/04/21 16:45 Consult Physician Urgent Consulting Provider: Agapito Freitas Consult Reason/Comments: gina Do you want consulting provider notified?: Yes Primary care physician: [facility] Course: Final Diagnosis -abdominal discomfort secondary to abdominal distention no clinical evidence of spontaneous bacterial peritonitis -s/p paracentesis with 12L removed -Acute renal failure: Probably secondary to acute necrosis hepatorenal syndrome. -Hyperkalemia secondary to Aldactone, improved -Alcoholic cirrhosis patient quit drinking alcohol about 4 months ago -Hyponatremia hypovolemic hyponatremia -Metabolic acidosis both anion gap and non-anion gap secondary to renal failure -DVT prophylaxis -full code Discharge disposition Patient is being discharged in a stable condition with guarded prognosis to home. Patient will follow-up with Dr. Armstrong in the outpatient setting upon discharge. Patient will also follow up with GI DR. Vargas outpatient. Patient receives weekly paracentesis and will continue. Total time taken is greater than 35 minutes. Hospital course 45-year-old male came in with the significant abdominal discomfort because of the worsening ascites patient has scheduled paracentesis once a day which 2 w eeks because of significant discomfort patient came to ER. Patient will undergo ultrasound-guided paracentesis today patient is also found to be in renal failure with creatinine of 2.12 baseline is around 1. Patient was evaluated by nephrology patient's sodium was also low at 125 patient is obese bit hyperkalemic with potassium of 5.7 this is secondary to renal failure as well as a high dose of Aldactone. 01/06/2021 Patient is seen in follow-up with no acute overnight issues noted. Patient is status post paracentesis with removal of approx 12 Liters of straw color fluid noted. Patient did receive albumin. Patient creatinine improving and trending down and recommend repeat labs and continued low salt diet with 1200mL fluid restriction. Patient follows with DR. Vargas GI outpatient and will continue. Patient started on low dose aldactone. Patient is requesting to go home. Currently no reports of chest pain, shortness of breath, or palpitations. Patient is afebrile. No reports of nausea or vomiting and patient is tolerating diet. Patient will be discharged home. On exam vital signs are stable. Cardio S1, S2 are muffled. Respiratory system shows diminished breath sounds at the bases with no wheezing or rhonchi noted. Abdomen is soft and nontender. Nervous system shows no focal deficits. Please refer to medication reconciliation sheet for a list of medications. Patient Condition at Discharge: Stable Plan - Discharge Summary New Discharge Prescriptions: New Spironolactone [Aldactone] 25 mg PO BID #60 tab Calcium Carbonate [Tums] 500 mg PO TID PRN chew PRN Reason: Heartburn Continue Gabapentin 300 mg PO QID Furosemide [Lasix] 40 mg PO DAILY Melatonin 3 mg PO HS PRN PRN Reason: Insomnia Thiamine [Vitamin B-1] 100 mg PO AC-BID Famotidine [Pepcid] 20 mg PO Q12H Multivitamins, Thera [Multivitamin (formulary)] 1 tab PO DAILY Discontinued Spironolactone 100 mg PO DAILY Discharge Medication List Gabapentin 300 mg PO QID 10/24/20 [History] Famotidine [Pepcid] 20 mg PO Q12H 11/11/20 [History] Thiamine [Vitamin B-1] 100 mg PO AC-BID 11/11/20 [History] Multivitamins, Thera [Multivitamin (formulary)] 1 tab PO DAILY 12/02/20 [History] Furosemide [Lasix] 40 mg PO DAILY 01/04/21 [History] Melatonin 3 mg PO HS PRN 01/04/21 [History] Calcium Carbonate [Tums] 500 mg PO TID PRN chew 01/06/21 [Rx] Spironolactone [Aldactone] 25 mg PO BID #60 tab 01/06/21 [Rx] Follow up Appointment(s)/Referral(s): Rula Vargas MD [STAFF PHYSICIAN] - 2 Weeks (PLEASE CALL TO MAKE APPOINTMENT, OFFICE IS CURRENTLY CLOSED AT TIME OF DISCHARGE) [facility] [Primary Care Provider] - 01/10/21 11:00 am () Ambulatory/Diagnostic Orders: Basic Metabolic Panel [LAB.AMB] Time Frame: 3 Days, Location: None Selected Patient Instructions/Handouts: Acute Kidney Injury (DC), Hyperkalemia (DC), Ascites (DC), Paracentesis (DC) Activity/Diet/Wound Care/Special Instructions: Activity Limited until follow-up Follow-up with primary care provider upon discharge Continue with low-salt diet Continue with 1200 mL fluid restriction Follow-up with GI outpatient Repeat labs in 2-3 days to monitor electrolytes and kidney functions Discharge Disposition: HOME SELF-CARE
== END 2021-01-06 16:48 | disposition home or self-care (01) | DRG 441 ==
LOC: EC 13:43 → 5NMEDONC 16:39
PROVIDERS: ADMIT Internal Medicine; ATTEND Internal Medicine
PROC: 0W9G3ZZ Drainage of Peritoneal Cavity, Percutaneous Approach (ICD-10-PCS; principal; 2021-01-05)
DX: K76.7 Hepatorenal syndrome (principal); N17.0 Acute kidney failure with tubular necrosis; E87.1 Hypo-osmolality and hyponatremia; E87.2 Acidosis; K56.7 Ileus, unspecified; Z68.1 Body mass index [BMI] 19.9 or less, adult; K70.31 Alcoholic cirrhosis of liver with ascites; T50.0X5A Adverse effect of mineralocorticoids and their antagonists, initial encounter; E66.9 Obesity, unspecified; E78.5 Hyperlipidemia, unspecified; F10.10 Alcohol abuse, uncomplicated; R55 Syncope and collapse; E86.1 Hypovolemia; E87.5 Hyperkalemia; E87.70 Fluid overload, unspecified; F17.210 Nicotine dependence, cigarettes, uncomplicated; F31.9 Bipolar disorder, unspecified; F41.0 Panic disorder [episodic paroxysmal anxiety]; F43.10 Post-traumatic stress disorder, unspecified; G40.909 Epilepsy, unspecified, not intractable, without status epilepticus; I10 Essential (primary) hypertension; Z79.899 Other long term (current) drug therapy; X58.XXXA Exposure to other specified factors, initial encounter; Z88.6 Allergy status to analgesic agent
CPT/HCPCS: 36415; 49083; 71046; 74018; 76770; 80053; 81003; 83735; 84132; 84300; 84484; 85025; 85610; 85730; 93005; 96374; 96375; 99285

== ENCOUNTER 2021-01-12 09:38 | Day surgery (SDC) | payer OTHER ==
[2021-01-07 18:09] VITALS: BMI 17.5
[~2021-01-12 09:38] MED LIST: LACTATED RINGERS 1,000 ML IV SCH
[2021-01-12 10:23] VITALS: TEMP 96.6
[2021-01-12] MEDS ORDERED: PHENYLEPHRINE-0.9% NACL SYG 1,000 MCG/10 ML SYRINGE ONE (10:58)
[2021-01-12] MEDS ORDERED: PROPOFOL 10 MG/ML 20 ML VIAL IV ONE (10:58)
[2021-01-12] MEDS ORDERED: LIDOCAINE 1% INJ 10MG/ML (20 ML MDV) ONE (10:58)
--- NOTE | 2021-01-12 11:14 | P.PCN ---
Date of Procedure: 01/12/21 Procedure(s) Performed: BRIEF HISTORY: Patient is a a 68-year-old, pleasant, white male with history of colic cirrhosis of the liver is scheduled for an upper endoscopy to screen for esophageal varices. He quit drinking 4 months ago. . PROCEDURE PERFORMED: Esophagogastroduodenoscopy. PREOPERATIVE DIAGNOSIS: Cirrhosis of the liver screening for esophageal varices. IV sedation per anesthesia. PROCEDURE: After informed consent was obtained, the patient was brought into the endoscopy unit. IV sedation was administered by Anesthesia under continuous monitoring. Initially the Olympus GIF-140 video endoscope was inserted into the mouth. Esophagus intubated without any difficulty. It was gradually advanced into the stomach and duodenum and carefully examined. The bulb and the second part of the duodenum appeared normal. The scope at this time was withdrawn to the stomach, adequately insufflated with air, and upon careful examination, mucosa of the antrum, body, cardia and the fundus appeared normal. The scope was then withdrawn into the esophagus. The GE junction was located at 39 cm from the incisors. The esophagus appeared normal. There were no erosions or ulcerations seen and the patient tolerated the procedure well. IMPRESSION: 1. Large mid/distal esophageal varices with no stigmata of bleeding. 2. Moderate portal Hypertensive gastropathy. RECOMMENDATIONS: The findings of this examination were discussed with the patient as well as his family. He'll be started on ptopranolol 10 mg 3 times daily and will be seen in office in 3-4 weeks.
[2021-01-12 11:53] VITALS: BP 88/58; PULSE 77; RESP 20
== END 2021-01-12 12:24 | disposition home or self-care (01) ==
LOC: ORWHC2ENDO 09:38
PROVIDERS: ATTEND Internal Medicine Gastroenterology
DX: I85.10 Secondary esophageal varices without bleeding (principal); K74.60 Unspecified cirrhosis of liver; K76.6 Portal hypertension; I10 Essential (primary) hypertension; E78.5 Hyperlipidemia, unspecified; F12.90 Cannabis use, unspecified, uncomplicated
CPT/HCPCS: 43235; J2001; J2370; J2704

== ENCOUNTER 2021-01-13 12:18 | Day surgery (SDC) | payer OTHER ==
[2021-01-13 12:26] VITALS: RESP 16; TEMP 97.9
[2021-01-13 12:54] LABS: Mean Platelet Volume 7.3; Platelet Count 154 k/uL (150-450)
[2021-01-13 13:01] LABS: Prothrombin Time 10.6 sec (9.0-12.0)
[2021-01-13] MEDS: ALBUMIN HUMAN 25% 50 ML in EMPTY BAG 1 BAG IVPB SCH ×4 (13:30→14:20)
[2021-01-13 14:52] VITALS: BP 97/63; PULSE 93
--- NOTE | 2021-01-14 08:47 | US ---
Ultrasound-guided paracentesis. DATE OF EXAM: 01/13/2021 CLINICAL HISTORY: Ascites The procedure was discussed with the patient. The risks, complications, benefits, and alternatives we re discussed and any questions were answered. Informed consent was obtained. The patient was placed s upine on the ultrasound table and prepped and draped in the usual sterile fashion. All elements of maximal barrier technique were utilized. Under ultrasound guidance, access into the right lower quadrant was obtained, via the paracentesis catheter system and direct ultrasound guidanc e. Approximately 8.8 liters of straw-colored fluid was removed. The patient was stable throughout the pr ocedure and remained stable upon discharge from Department of Radiology. IMPRESSION: Successful paracentesis under ultrasound guidance.
== END 2021-01-13 15:00 | disposition home or self-care (01) ==
LOC: RADPROMAIN 12:18
PROVIDERS: ATTEND Internal Medicine Gastroenterology
DX: R18.8 Other ascites (principal)
CPT/HCPCS: 49083; 82565; 85049; 85610; 36415; P9047

== ENCOUNTER 2021-01-20 12:15 | Day surgery (SDC) | payer OTHER ==
[2021-01-20 12:44] LABS: Mean Platelet Volume 6.8; Platelet Count 191 k/uL (150-450)
[2021-01-20 12:49] LABS: INR 0.9 (<1.2); Prothrombin Time 10.2 sec (9.0-12.0)
[2021-01-20 13:08] VITALS: TEMP 98.7
[2021-01-20] MEDS: ALBUMIN HUMAN 25% 50 ML in EMPTY BAG 1 BAG IVPB SCH ×4 (13:38→14:23)
[2021-01-20 15:12] VITALS: PULSE 91; RESP 14
--- NOTE | 2021-01-20 15:52 | US ---
Ultrasound-guided paracentesis. DATE OF EXAM: 01/20/2021 CLINICAL HISTORY: Ascites The procedure was discussed with the patient. The risks, complications, benefits, and alternatives we re discussed and any questions were answered. Informed consent was obtained. The patient was placed s upine on the ultrasound table and prepped and draped in the usual sterile fashion. All elements of maximal barrier technique were utilized. Under ultrasound guidance, access into the right lower quadrant was obtained, via the paracentesis catheter system and direct ultrasound guidanc e. Approximately 10.1 liters of straw-colored fluid was removed. The patient was stable throughout the p rocedure and remained stable upon discharge from Department of Radiology. IMPRESSION: Successful paracentesis under ultrasound guidance.
[2021-01-20 16:09] VITALS: BP 88/56
== END 2021-01-20 15:50 | disposition home or self-care (01) ==
LOC: RADPROMAIN 12:15
PROVIDERS: ATTEND Internal Medicine Gastroenterology
DX: R18.8 Other ascites (principal)
CPT/HCPCS: 49083; 82565; 85049; 85610; 36415; P9047

== ENCOUNTER 2021-01-20 15:49 | Emergency (ER) | payer OTHER ==
[2021-01-20 16:02] VITALS: RESP 16
[2021-01-20] MEDS ORDERED: SODIUM CHLORIDE 0.9% 1,000 ML IV ONE (16:15)
[2021-01-20 17:41] LABS: Basophils % (A) 1 %; Eosinophils # (A) 0.1 k/uL (0-0.7); Eosinophils % (A) 2 %; HCT 28.8 % (39.0-53.0); Lymphocytes # (A) 1.2 k/uL (1.0-4.8); Lymphocytes % (A) 21 %; MCH 35.2 pg (25.0-35.0); MCV 100.7 fL (80.0-100.0); Macrocytosis Slight; Mean Platelet Volume 7.4; Monocytes # (A) 0.4 k/uL (0-1.0); Monocytes % (A) 6 %; Neutrophils # (A) 3.8 k/uL (1.3-7.7); Neutrophils % (A) 69 %; Platelet Count 105 k/uL (150-450); RBC 2.86 m/uL (4.30-5.90); RDW 14.2 % (11.5-15.5); WBC 5.6 k/uL (3.8-10.6)
[2021-01-20 17:57] LABS: HGB 10.1 gm/dL (13.0-17.5)
[2021-01-20 18:01] LABS: African American GFR (CKD) >90 (>60 ml/min/1.73 sqM); Anion Gap 4 mmol/L; Blood Urea Nitrogen 36 mg/dL (9-20); Calcium 6.8 mg/dL (8.4-10.2); Carbon Dioxide 17 mmol/L (22-30); Chloride 108 mmol/L (98-107); Glucose 93 mg/dL (74-99); Non-African American GFR(CKD) 85 (>60 ml/min/1.73 sqM); Potassium 3.4 mmol/L (3.5-5.1); Sodium 129 mmol/L (137-145)
--- NOTE | 2021-01-20 18:31 | ED ---
General Adult HPI - General Chief complaint: Recheck/Abnormal Lab/Rx Stated complaint: low BP Time Seen by Provider: 01/20/21 15:59 Source: patient, RN notes reviewed, old records reviewed Mode of arrival: wheelchair Limitations: no limitations - History of Present Illness Initial comments: Patient is a 45-year-old male with past medical history remarkable for prior alcohol abuse rule out resulting in alcohol cirrhosis, hypertension, liver disease, chronic ascites that requires weekly paracenteses who presents emergency Department after receiving a paracentesis. Patient's blood pressure was systolics in the 80s, and therefore they sent the ER for evaluation. Patient does have a history of low blood pressures in the past. He states he runs anywhere systolic from low 80s to 110. He has no other symptoms at this time. Denies any chest pain, abdominal pain, shortness of breath, headache, weakness, numbness. Denies any change in vision. Denies any fevers, chills, cough. He did receive a dose of albumin at the paracentesis prior to arrival. - Related Data Home Medications Medication Instructions Recorded Confirmed Gabapentin 300 mg PO QID 10/24/20 01/20/21 Famotidine [Pepcid] 20 mg PO BID 11/11/20 01/20/21 Thiamine [Vitamin B-1] 100 mg PO AC-BID 11/11/20 01/20/21 Multivitamins, Thera [Multivitamin 1 tab PO DAILY 12/02/20 01/20/21 (formulary)] Furosemide [Lasix] 40 mg PO DAILY 01/04/21 01/20/21 ALPRAZolam [Xanax] 0.5 mg PO DAILY PRN 01/07/21 01/20/21 Allergies Allergy/AdvReac Type Severity Reaction Status Date / Time acetaminophen [From Tylenol] Allergy Unknown Verified 01/20/21 18:33 aripiprazole [From Abilify] AdvReac Unknown Verified 01/20/21 18:33 mirtazapine AdvReac Unknown Verified 01/20/21 18:33 Review of Systems ROS Statement: Those systems with pertinent positive or pertinent negative responses have been documented in the HPI. Review of Systems: CONST: Denies fever EYES: Denies blurry vision ENT: Denies nasal congestion C/V: Denies Chest pain RESP: Denies shortness of breath GI: Denies abdominal pain : Denies dysuria SKIN: Denies rash. MSK: Denies joint pain. NEURO: Denies headache ROS Other: All systems not noted in ROS Statement are negative. Past Medical History Past Medical History: Hyperlipidemia, Hypertension, Liver Disease, Seizure Disorder, Syncope Additional Past Medical History / Comment(s): hx of ETOH ABUSE-, cirrhosis History of Any Multi-Drug Resistant Organisms: None Reported Past Surgical History: No Surgical Hx Reported Additional Past Surgical History / Comment(s): paracentesis Past Anesthesia/Blood Transfusion Reactions: No Reported Reaction Past Psychological History: Anxiety, Bipolar, Depression, Panic Disorder, PTSD Smoking Status: Current every day smoker Past Alcohol Use History: Abuse, Heavy Past Drug Use History: Marijuana - Past Family History Mother Family Medical History: Diabetes Mellitus, Hypertension Father History Unknown: Yes Family Medical History: Hypertension Additional Family Medical History / Comment(s): alcoholism General Exam - General Exam Comments Initial Comments: General: Appears in no acute distress. HEAD: Normal with no signs of head trauma. EYES: PERRLA, EOMI, conjunctiva normal, no discharge. Pupils are 3 mm and equal bilaterally. ENT: Hearing grossly intact, normal oropharynx. RESPIRATORY: Clear breath sounds bilaterally. No wheezes, rales, or rhonchi. C/V: Regular rate and rhythm. S1 and S2 auscultated, no edema, peripheral pulses 2+ and intact throughout ABD: Abd is soft, nontender, nondistended. There are no peritoneal signs. There is no rebound tenderness. There is a Band-Aid over the site of the recent paracentesis. EXT: Normal range of motion, no obvious deformity SKIN: No rashes or lesions observed on exposed skin. NEURO: Alert and oriented 4. Limitations: no limitations Course Vital Signs 01/20/21 01/20/21 15:54 18:44 Temperature 98.4 F 98.2 F Pulse Rate 89 99 Respiratory 16 16 Rate Blood Pressure 86/59 95/66 O2 Sat by Pulse 100 99 Oximetry Medical Decision Making - Medical Decision Making Based on patient's presentation and physical exam, his hypotension is likely secondary to his paracentesis, as this has happened previously. He is otherwise asymptomatic. He already received albumin. Therefore patient will be given a 1 L fluid bolus we'll monitor his blood pressures. Prior to the fluid bolus, patient's pressures already increased systolics in the 90s. He does have a history of low blood pressures is seen on prior admissions. Systolics tend to be in the 90s. We will obtain basic laboratory studies all. Patient's lavatory studies are remarkable for mild electrode abnormalities which is likely secondary to his paracenteses. Patient has a macrocytic anemia of 10.1. On reevaluation, patient's blood pressure is improved to 95/66. I do believe it is safer to be discharged home at this time. He remains asymptomatic. He was in agreement this plan and is requesting to leave. I instructed the patient to follow up with their PCP in the next 3 days. . I explained that the patient should return to the emergency department if they experience any worsening symptoms. Strict return precautions were discussed with the patient. The patient expressed understanding of these instructions. I answered all questions that the patient had. The patient was discharged home in good condition with their prescriptions and follow up information. - Lab Data Result diagrams: 01/20/21 16:22 01/20/21 16:22 Lab Results 01/20/21 01/20/21 Range/Units 16:22 16:22 WBC 5.6 (3.8-10.6) k/uL RBC 2.86 L (4.30-5.90) m/uL Hgb 10.1 L D (13.0-17.5) gm/dL Hct 28.8 L (39.0-53.0) % MCV 100.7 H (80.0-100.0) fL MCH 35.2 H (25.0-35.0) pg MCHC 35.0 (31.0-37.0) g/dL RDW 14.2 (11.5-15.5) % Plt Count 105 L (150-450) k/uL MPV 7.4 Neutrophils % 69 % Lymphocytes % 21 % Monocytes % 6 % Eosinophils % 2 % Basophils % 1 % Neutrophils # 3.8 (1.3-7.7) k/uL Lymphocytes # 1.2 (1.0-4.8) k/uL Monocytes # 0.4 (0-1.0) k/uL Eosinophils # 0.1 (0-0.7) k/uL Basophils # 0.0 (0-0.2) k/uL Macrocytosis Slight Sodium 129 L (137-145) mmol/L Potassium 3.4 L (3.5-5.1) mmol/L Chloride 108 H (98-107) mmol/L Carbon Dioxide 17 L (22-30) mmol/L Anion Gap 4 mmol/L BUN 36 H (9-20) mg/dL Creatinine 1.05 (0.66-1.25) mg/dL Est GFR (CKD-EPI)AfAm >90 (>60 ml/min/1.73 sqM) Est GFR (CKD-EPI)NonAf 85 (>60 ml/min/1.73 sqM) Glucose 93 (74-99) mg/dL Calcium 6.8 L (8.4-10.2) mg/dL Disposition Clinical Impression: Hypotension, Electrolyte abnormality, History of abdominal paracentesis, Macrocytic anemia Disposition: HOME SELF-CARE Condition: Good Is patient prescribed a controlled substance at d/c from ED?: No Referrals: [facility],Clinic [Primary Care Provider] - 1-2 days
[2021-01-20 18:45] VITALS: BP 95/66; PULSE 99; TEMP 98.2
== END 2021-01-20 18:44 | disposition home or self-care (01) ==
LOC: EC 15:49
DX: I95.9 Hypotension, unspecified (principal); D53.9 Nutritional anemia, unspecified; E87.8 Other disorders of electrolyte and fluid balance, not elsewhere classified; I10 Essential (primary) hypertension; E78.5 Hyperlipidemia, unspecified; F31.9 Bipolar disorder, unspecified; F41.9 Anxiety disorder, unspecified; F17.200 Nicotine dependence, unspecified, uncomplicated; F12.90 Cannabis use, unspecified, uncomplicated; Z79.899 Other long term (current) drug therapy; Z88.6 Allergy status to analgesic agent; Z83.3 Family history of diabetes mellitus; Z82.49 Family history of ischemic heart disease and other diseases of the circulatory system
CPT/HCPCS: 36415; 80048; 85025; 96360; 99285

== ENCOUNTER 2021-01-22 13:03 | Emergency (ER) | payer OTHER ==
[2021-01-22 13:42] VITALS: BP 98/57; PULSE 97; RESP 18; TEMP 98
--- NOTE | 2021-01-22 13:45 | ED ---
Recheck HPI - General Chief Complaint: Recheck/Abnormal Lab/Rx Stated Complaint: Med Refill Time Seen by Provider: 01/22/21 13:44 Source: patient Mode of arrival: ambulatory Limitations: no limitations - History of Present Illness Initial Comments: 45-year-old male presenting to emergency Department with a chief complaint of medication refill. He needs Lasix 40 mg daily. Denies other complaints. - Related Data Home Medications Medication Instructions Recorded Confirmed Gabapentin 300 mg PO QID 10/24/20 01/20/21 Famotidine [Pepcid] 20 mg PO BID 11/11/20 01/20/21 Thiamine [Vitamin B-1] 100 mg PO AC-BID 11/11/20 01/20/21 Multivitamins, Thera [Multivitamin 1 tab PO DAILY 12/02/20 01/20/21 (formulary)] Furosemide [Lasix] 40 mg PO DAILY 01/04/21 01/20/21 ALPRAZolam [Xanax] 0.5 mg PO DAILY PRN 01/07/21 01/20/21 Previous Rx's Medication Instructions Recorded Furosemide [Lasix] 40 mg PO DAILY #30 tablet 01/22/21 Allergies Allergy/AdvReac Type Severity Reaction Status Date / Time acetaminophen [From Tylenol] Allergy Unknown Verified 01/22/21 13:42 aripiprazole [From Abilify] AdvReac Unknown Verified 01/22/21 13:42 mirtazapine AdvReac Unknown Verified 01/22/21 13:42 Review of Systems ROS Statement: Those systems with pertinent positive or pertinent negative responses have been documented in the HPI. ROS Other: All systems not noted in ROS Statement are negative. Past Medical History Past Medical History: Hyperlipidemia, Hypertension, Liver Disease, Seizure Disorder, Syncope Additional Past Medical History / Comment(s): hx of ETOH ABUSE-, cirrhosis History of Any Multi-Drug Resistant Organisms: None Reported Past Surgical History: No Surgical Hx Reported Additional Past Surgical History / Comment(s): paracentesis Past Anesthesia/Blood Transfusion Reactions: No Reported Reaction Past Psychological History: Anxiety, Bipolar, Depression, Panic Disorder, PTSD Smoking Status: Current every day smoker Past Alcohol Use History: Abuse, Heavy Past Drug Use History: Marijuana - Past Family History Mother Family Medical History: Diabetes Mellitus, Hypertension Father History Unknown: Yes Family Medical History: Hypertension Additional Family Medical History / Comment(s): alcoholism General Exam Limitations: no limitations General appearance: alert, in no apparent distress Head exam: Present: atraumatic, normocephalic, normal inspection Eye exam: Present: normal appearance Pupils: Present: normal accommodation ENT exam: Present: normal exam Neck exam: Present: normal inspection Respiratory exam: Present: normal lung sounds bilaterally Cardiovascular Exam: Present: regular rate, normal rhythm, normal heart sounds Extremities exam: Present: normal inspection Back exam: Present: normal inspection Neurological exam: Present: alert, oriented X3 Psychiatric exam: Present: normal affect, normal mood Skin exam: Present: intact, normal color Course Vital Signs 01/22/21 13:39 Temperature 98.0 F Pulse Rate 97 Respiratory 18 Rate Blood Pressure 98/57 O2 Sat by Pulse 98 Oximetry Medical Decision Making - Medical Decision Making I gave him medication refill for Lasix 40 mg daily for 30 days. Disposition Clinical Impression: Encounter for medication refill Disposition: HOME SELF-CARE Condition: Stable Instructions (If sedation given, give patient instructions): Furosemide (By mouth) Additional Instructions: Please return to the Emergency Department if symptoms worsen or any other concerns. Prescriptions: Furosemide [Lasix] 40 mg PO DAILY #30 tablet Is patient prescribed a controlled substance at d/c from ED?: No Referrals: [facility],Clinic [Primary Care Provider] - 1-2 days Time of Disposition: 13:45
== END 2021-01-22 14:04 | disposition home or self-care (01) ==
LOC: EC 13:03
DX: Z76.0 Encounter for issue of repeat prescription (principal); I10 Essential (primary) hypertension; E78.5 Hyperlipidemia, unspecified; G40.909 Epilepsy, unspecified, not intractable, without status epilepticus; F41.9 Anxiety disorder, unspecified; F31.9 Bipolar disorder, unspecified; F17.200 Nicotine dependence, unspecified, uncomplicated; F12.90 Cannabis use, unspecified, uncomplicated
CPT/HCPCS: 99281

== ENCOUNTER 2021-01-27 12:17 | Day surgery (SDC) | payer OTHER ==
[2021-01-27 12:47] VITALS: TEMP 97.6
[2021-01-27 12:48] LABS: Mean Platelet Volume 6.8
[2021-01-27 12:53] LABS: Platelet Count 257 k/uL (150-450)
[2021-01-27 13:03] LABS: INR 0.9 (<1.2); Prothrombin Time 9.9 sec (9.0-12.0)
[2021-01-27] MEDS: ALBUMIN HUMAN 25% 50 ML in EMPTY BAG 1 BAG IVPB SCH ×4 (13:14→14:19)
[2021-01-27 13:28] VITALS: RESP 16
[2021-01-27 14:35] VITALS: BP 101/63; PULSE 90
--- NOTE | 2021-01-27 17:09 | US ---
EXAMINATION TYPE: US paracentesis abd w/image DATE OF EXAM: 01/27/2021 COMPARISON: NONE HISTORY: Ascites. PROCEDURE: Maximal barrier technique was utilized. The skin overlying a suitable pocket of fluid was localized with ultrasound and the overlying skin was prepped and draped. Ultrasound was utilized with sterile technique. Lidocaine was used for local anesthesia and a skin colleen made with a scalpel. Catheter was advanced under direct ultrasound guidance into a suitable pocket of fluid and approximately 9.4 liter s of serous fluid were removed. Catheter was withdrawn and hemostasis achieved. There is no immedia te complication; the patient is discharged in stable condition. IMPRESSION: STATUS POST ULTRASOUND GUIDED PARACENTESIS FOR PALLIATION OF ASCITES. THIS PROCEDURE WA S PERFORMED BY THE UNDERSIGNED.
== END 2021-01-27 15:15 | disposition home or self-care (01) ==
LOC: RADPROMAIN 12:17
PROVIDERS: ATTEND Internal Medicine Gastroenterology
DX: R18.8 Other ascites (principal)
CPT/HCPCS: 49083; 82565; 84520; 85049; 85610; 36415; P9047

== ENCOUNTER 2021-01-27 15:03 | Emergency (ER) | payer OTHER ==
[2021-01-27 15:10] VITALS: TEMP 98
--- NOTE | 2021-01-27 15:45 | ED ---
General Adult HPI - General Source: patient Mode of arrival: wheelchair Limitations: no limitations <Inocencio Pereyra Jose - Last Filed: 01/27/21 15:44> <Juve Penn - Last Filed: 01/28/21 02:37> - General Chief complaint: Psychiatric Symptoms Stated complaint: Suicidal thoughts Time Seen by Provider: 01/27/21 15:10 - History of Present Illness Initial comments: Dictation was produced using [employer] dictation software. please excuse any grammatical, word or spelling errors. Chief Complaint: 45-year-old male presents to the emergency department for suicidal statements History of Present Illness: Patient is a 45-year-old male he gets weekly paracentesis for ascites secondary to liver cirrhosis from chronic alcohol use for the past several years. He was receiving his paracentesis when he mentioned to interventional radiology staff that he doesn't want to live anymore. Patient states that he has baseline depression and had been on medications for depression past. He underwent significant financial stress recently exacerbating his suicidal thoughts. Patient does not have any specific plan but reports that he does not want to live anymore. States however that he would not hurt himself because he has 16-year-old daughter that needs to support. Patient denies any acute medical complaints at this time. He states that he feels at baseline. He has been getting weekly paracentesis for several weeks. Patient is slightly regretful for what he stated to IR staff. He states that he has chronic suicidal ideation. The ROS documented in this emergency department record has been reviewed and confirmed by me. Those systems with pertinent positive or negative responses have been documented in the HPI. All other systems are other negative and/or noncontributory. PHYSICAL EXAM: General Impression: Alert and oriented x3, not in acute distress HEENT: Normocephalic atraumatic, extra-ocular movements intact, pupils equal and reactive to light bilaterally, mucous membranes moist. Cardiovascular: Heart regular rate and rhythm Chest: Able to complete full sentences, no retractions, no tachypnea Musculoskeletal: no peripheral edema Motor: no focal deficits noted Neurological: CN II-XII grossly intact, no focal motor or sensory deficits noted Skin: Intact with no visualized rashes Psych: Depressed affect ED course: 45-year-old presents to the emergency department for suicidal statements while in the interventional radiology suite during his weekly paracenteses. Vital signs upon arrival shows blood pressure 87/57, rest of vital signs within acceptable limits. Patient is no medical complaints. Patient's low blood pressure is likely secondary to recent paracentesis. He does not show any signs of distress. (Inocencio Pereyra) - Related Data Home Medications Medication Instructions Recorded Confirmed Gabapentin 300 mg PO QID 10/24/20 01/27/21 Famotidine [Pepcid] 20 mg PO BID 11/11/20 01/27/21 Thiamine [Vitamin B-1] 100 mg PO AC-BID 11/11/20 01/27/21 Multivitamins, Thera [Multivitamin 1 tab PO DAILY 12/02/20 01/27/21 (formulary)] Furosemide [Lasix] 40 mg PO DAILY 01/04/21 01/27/21 ALPRAZolam [Xanax] 0.5 mg PO DAILY PRN 01/07/21 01/27/21 Allergies Allergy/AdvReac Type Severity Reaction Status Date / Time acetaminophen [From Tylenol] Allergy Unknown Verified 01/27/21 15:41 aripiprazole [From Abilify] AdvReac Unknown Verified 01/27/21 15:41 mirtazapine AdvReac Unknown Verified 01/27/21 15:41 Review of Systems ROS Other: All systems not noted in ROS Statement are negative. <Inocencio Pereyra - Last Filed: 01/27/21 15:44> ROS Other: All systems not noted in ROS Statement are negative. <Juve Penn - Last Filed: 01/28/21 02:37> ROS Statement: Those systems with pertinent positive or pertinent negative responses have been documented in the HPI. Past Medical History Past Medical History: Hyperlipidemia, Hypertension, Liver Disease, Seizure Disorder, Syncope Additional Past Medical History / Comment(s): hx of ETOH ABUSE-, cirrhosis History of Any Multi-Drug Resistant Organisms: None Reported Past Surgical History: No Surgical Hx Reported Additional Past Surgical History / Comment(s): paracentesis Past Anesthesia/Blood Transfusion Reactions: No Reported Reaction Past Psychological History: Anxiety, Bipolar, Depression, Panic Disorder, PTSD Smoking Status: Never smoker Past Alcohol Use History: Abuse, Heavy - Past Family History Mother Family Medical History: Diabetes Mellitus, Hypertension Father History Unknown: Yes Family Medical History: Hypertension Additional Family Medical History / Comment(s): alcoholism <Inocencio Pereyra - Last Filed: 01/27/21 15:44> General Exam Limitations: no limitations <Inocencio Pereyra - Last Filed: 01/27/21 15:44> Course Vital Signs 01/27/21 01/27/21 01/27/21 15:06 16:03 23:09 Temperature 98.0 F Pulse Rate 90 87 79 Respiratory 16 18 20 Rate Blood Pressure 87/57 93/59 100/63 O2 Sat by Pulse 100 96 Oximetry 01/28/21 02:08 Temperature Pulse Rate 71 Respiratory 20 Rate Blood Pressure 101/63 O2 Sat by Pulse 99 Oximetry Disposition <Inocencio Pereyra - Last Filed: 01/27/21 15:44> Is patient prescribed a controlled substance at d/c from ED?: No <Juve Penn - Last Filed: 01/28/21 02:37> Clinical Impression: Mood disorder Disposition: HOME SELF-CARE Condition: Good Instructions (If sedation given, give patient instructions): Mood Disorders (ED) Referrals: [facility],Clinic [Primary Care Provider] - 1-2 days
[2021-01-28 02:58] VITALS: BP 93/63; PULSE 86; RESP 18
== END 2021-01-28 03:08 | disposition home or self-care (01) ==
LOC: EC 15:03
DX: F39 Unspecified mood [affective] disorder (principal); R45.851 Suicidal ideations; E78.5 Hyperlipidemia, unspecified; I10 Essential (primary) hypertension; G40.909 Epilepsy, unspecified, not intractable, without status epilepticus; F41.9 Anxiety disorder, unspecified; F31.9 Bipolar disorder, unspecified
CPT/HCPCS: 82075; 99284

== ENCOUNTER 2021-02-03 12:23 | Day surgery (SDC) | payer OTHER ==
[2021-02-03 12:38] VITALS: BP 118/68; PULSE 98; RESP 16; TEMP 97.7
[2021-02-03 13:19] LABS: INR 0.9 (<1.2); Prothrombin Time 9.6 sec (9.0-12.0)
[2021-02-03 13:27] LABS: Albumin 2.9 g/dL (3.5-5.0); Total Bilirubin 0.7 mg/dL (0.2-1.3); Total Protein 5.4 g/dL (6.3-8.2)
[2021-02-03 13:43] LABS: Basophils # (A) 0.1 k/uL (0-0.2); Basophils % (A) 1 %; Eosinophils # (A) 0.3 k/uL (0-0.7); Eosinophils % (A) 2 %; HCT 41.5 % (39.0-53.0); Lymphocytes # (A) 2.5 k/uL (1.0-4.8); Lymphocytes % (A) 22 %; MCH 34.8 pg (25.0-35.0); MCHC 34.8 g/dL (31.0-37.0); MCV 100.1 fL (80.0-100.0); Mean Platelet Volume 6.8; Monocytes # (A) 0.9 k/uL (0-1.0); Monocytes % (A) 8 %; Neutrophils # (A) 7.2 k/uL (1.3-7.7); Neutrophils % (A) 64 %; Platelet Count 222 k/uL (150-450); Potassium 6.2 mmol/L (3.5-5.1); RBC 4.15 m/uL (4.30-5.90); WBC 11.2 k/uL (3.8-10.6)
[2021-02-03 13:45] LABS: HGB 14.4 gm/dL (13.0-17.5)
--- NOTE | 2021-02-03 14:09 | US ---
Discontinued paracentesis HISTORY: Ascites Preprocedural laboratory evaluation shows elevated potassium level to greater than 6. The procedure n ot performed at this time, patient to be evaluated in the emergency center.
[2021-02-03] MEDS: ALBUMIN HUMAN 25% 50 ML in EMPTY BAG 1 BAG IVPB SCH ×2 (14:20→14:21)
== END 2021-02-03 14:10 | disposition home or self-care (01) ==
LOC: RADPROMAIN 12:23
PROVIDERS: ATTEND Internal Medicine Gastroenterology
DX: R18.8 Other ascites (principal); Z53.09 Procedure and treatment not carried out because of other contraindication
CPT/HCPCS: 36415; 76705; 80053; 82105; 85025; 85610

== ENCOUNTER 2021-02-03 14:06 | Inpatient (IN) | payer OTHER ==
[2021-02-03 16:20] LABS: Albumin 2.8 g/dL (3.5-5.0); Calcium 8.7 mg/dL (8.4-10.2); Magnesium 2.5 mg/dL (1.6-2.3); Total Bilirubin 0.9 mg/dL (0.2-1.3); Total Protein 5.2 g/dL (6.3-8.2)
[2021-02-03 16:31] LABS: Potassium 6.5 mmol/L (3.5-5.1)
[2021-02-03] MEDS ORDERED: DEXTROSE 50% SYRINGE 50 ML IVP STA (16:34)
[2021-02-03] MEDS ORDERED: INSULIN REGULAR 100 UNIT/ML VIAL (IV) IV ONE (16:35)
[2021-02-03] MEDS ORDERED: CALCIUM GLUCONATE 1 GM in SODIUM CHLORIDE 0.9% 100 ML IVPB ONE (16:35)
[2021-02-03] MEDS ORDERED: ALBUTEROL NEBULIZED 2.5 MG/3 ML INHALATION STA (16:36)
--- NOTE | 2021-02-03 16:45 | ED ---
Recheck HPI - General Chief Complaint: Recheck/Abnormal Lab/Rx Stated Complaint: Lab Recheck Time Seen by Provider: 02/03/21 15:41 Source: patient Mode of arrival: ambulatory Limitations: no limitations - History of Present Illness Initial Comments: 45-year-old male with history of ascites and liver cirrhosis presenting to the emergency department with a chief complaint of elevated potassium levels. Patient had laboratory work obtained today around 1 PM and was contacted to come to the emergency department for an elevated potassium level of 6.2. Patient reports no previous history of hyperkalemia. Denies any nausea vomiting or diarrhea. States he had an appointment earlier today for paracentesis but it was delayed secondary to abnormal labs. He denies any chest pain, shortness of breath, weakness, lightheadedness, dizziness, headache, blurry vision. - Related Data Home Medications Medication Instructions Recorded Confirmed Gabapentin 300 mg PO QID 10/24/20 02/03/21 Famotidine [Pepcid] 20 mg PO BID 11/11/20 02/03/21 Thiamine [Vitamin B-1] 100 mg PO AC-BID 11/11/20 02/03/21 Multivitamins, Thera [Multivitamin 1 tab PO DAILY 12/02/20 02/03/21 (formulary)] Furosemide [Lasix] 40 mg PO DAILY 01/04/21 02/03/21 ALPRAZolam [Xanax] 0.5 mg PO DAILY PRN 01/07/21 02/03/21 Allergies Allergy/AdvReac Type Severity Reaction Status Date / Time acetaminophen [From Tylenol] Allergy Unknown Verified 02/03/21 15:37 aripiprazole [From Abilify] AdvReac Unknown Verified 02/03/21 15:37 mirtazapine AdvReac Unknown Verified 02/03/21 15:37 Review of Systems ROS Statement: Those systems with pertinent positive or pertinent negative responses have been documented in the HPI. ROS Other: All systems not noted in ROS Statement are negative. Past Medical History Past Medical History: Hyperlipidemia, Hypertension, Liver Disease, Seizure Disorder, Syncope Additional Past Medical History / Comment(s): hx of ETOH ABUSE-, cirrhosis History of Any Multi-Drug Resistant Organisms: None Reported Past Surgical History: No Surgical Hx Reported Additional Past Surgical History / Comment(s): paracentesis Past Anesthesia/Blood Transfusion Reactions: No Reported Reaction Past Psychological History: Anxiety, Bipolar, Depression, Panic Disorder, PTSD Smoking Status: Current every day smoker Past Alcohol Use History: Abuse, Heavy Past Drug Use History: None Reported - Past Family History Mother Family Medical History: Diabetes Mellitus, Hypertension Father History Unknown: Yes Family Medical History: Hypertension Additional Family Medical History / Comment(s): alcoholism General Exam Limitations: no limitations General appearance: alert, in no apparent distress Head exam: Present: atraumatic, normocephalic, normal inspection Eye exam: Present: normal appearance Pupils: Present: normal accommodation ENT exam: Present: normal exam, normal oropharynx, mucous membranes moist Neck exam: Present: normal inspection, full ROM. Absent: tenderness, lymphadenopathy Respiratory exam: Present: normal lung sounds bilaterally. Absent: respiratory distress, wheezes, rales Cardiovascular Exam: Present: regular rate, normal rhythm, normal heart sounds. Absent: systolic murmur GI/Abdominal exam: Present: soft, distended (Ascites). Absent: tenderness, guarding Extremities exam: Present: normal inspection, full ROM, normal capillary refill. Absent: tenderness Back exam: Present: normal inspection, full ROM. Absent: tenderness Neurological exam: Present: alert, oriented X3 Psychiatric exam: Present: normal affect, normal mood Skin exam: Present: warm, dry, intact, normal color Course Vital Signs 02/03/21 02/03/21 02/03/21 15:33 18:01 18:11 Temperature 98.0 F Pulse Rate 82 84 80 Respiratory 18 18 Rate Blood Pressure 98/62 96/58 O2 Sat by Pulse 99 98 Oximetry 02/03/21 02/03/21 18:21 18:52 Temperature Pulse Rate 86 86 Respiratory Rate Blood Pressure O2 Sat by Pulse Oximetry Medical Decision Making - Medical Decision Making 5-year-old male with history of ascites and liver cirrhosis presenting to the emergency department with a chief complaint of elevated potassium levels. On physical examination, patient has abdominal distention but that is his baseline due to the ascites. He was supposed to have paracentesis performed today but it was delayed due to abnormal laboratory work. Repeat laboratory work obtained showed a potassium of 6.5. Patient was given albuterol, dextrose, insulin, calcium gluconate and 20 mg of IV Lasix. Patient has elevated BUN and creatinine, however this appears to be his baseline.hypermagnesemia of 2.5. Hyponatremia of 123. I spoke to Dr. Peacock who will admit patient. Case discussed with - Lab Data Result diagrams: 02/03/21 16:04 Lab Results 02/03/21 Range/Units 16:04 Sodium 123 L (137-145) mmol/L Potassium 6.5 H* (3.5-5.1) mmol/L Chloride 100 (98-107) mmol/L Carbon Dioxide 18 L (22-30) mmol/L Anion Gap 5 mmol/L BUN 61 H (9-20) mg/dL Creatinine 1.78 H (0.66-1.25) mg/dL Est GFR (CKD-EPI)AfAm 52 (>60 ml/min/1.73 sqM) Est GFR (CKD-EPI)NonAf 45 (>60 ml/min/1.73 sqM) Glucose 108 H (74-99) mg/dL Calcium 8.7 (8.4-10.2) mg/dL Magnesium 2.5 H (1.6-2.3) mg/dL Total Bilirubin 0.9 (0.2-1.3) mg/dL AST 65 H (17-59) U/L ALT 23 (4-49) U/L Alkaline Phosphatase 79 (38-126) U/L Total Protein 5.2 L (6.3-8.2) g/dL Albumin 2.8 L (3.5-5.0) g/dL - EKG Data EKG Comments: Sinus rhythm Ventricular rate 71, WI 140, QRS 84, QTC 408. Disposition Clinical Impression: Hyperkalemia, Hypermagnesemia, Hyponatremia Disposition: ADMITTED IP TO THIS HOSP Condition: Fair Is patient prescribed a controlled substance at d/c from ED?: No Referrals: [facility],Clinic [Primary Care Provider] - 1-2 days Time of Disposition: 19:08
[2021-02-03] MEDS ORDERED: FUROSEMIDE 10 MG/ML 2 ML VIAL IV ONE (17:08)
[2021-02-03] MEDS ORDERED: NALOXONE 0.4 MG/ML 1 ML VIAL IV PRN (19:03)
[2021-02-03 20:26] LABS: Albumin 2.7 g/dL (3.5-5.0); Calcium 8.9 mg/dL (8.4-10.2)
[2021-02-03 20:33] LABS: Potassium 5.2 mmol/L (3.5-5.1)
[2021-02-03 20:52] LABS: Basophils # (A) 0.1 k/uL (0-0.2); Basophils % (A) 1 %; Eosinophils # (A) 0.1 k/uL (0-0.7); Eosinophils % (A) 1 %; HCT 41.2 % (39.0-53.0); HGB 13.9 gm/dL (13.0-17.5); Lymphocytes # (A) 1.6 k/uL (1.0-4.8); Lymphocytes % (A) 16 %; MCH 34.7 pg (25.0-35.0); MCHC 33.7 g/dL (31.0-37.0); MCV 102.9 fL (80.0-100.0); Macrocytosis Slight; Mean Platelet Volume 7.1; Monocytes # (A) 0.7 k/uL (0-1.0); Monocytes % (A) 6 %; Neutrophils # (A) 7.3 k/uL (1.3-7.7); Neutrophils % (A) 72 %; Platelet Count 183 k/uL (150-450); RDW 14.1 % (11.5-15.5); WBC 10.1 k/uL (3.8-10.6)
[2021-02-03 20:55] LABS: Glucose,Whole Blood 159 mg/dL (75-99)
[2021-02-03] MEDS: SODIUM CHLORIDE 0.9% 1,000 ML IV SCH (22:39)
[2021-02-04] MEDS ORDERED: MELATONIN 3 MG TABLET PO PRN (04:42)
[2021-02-04] MEDS ORDERED: ALPRAZolam 0.5 MG TAB PO PRN (04:42)
[2021-02-04 06:41] LABS: Glucose,Whole Blood 138 mg/dL (75-99)
[2021-02-04] MEDS: FUROSEMIDE 40 MG TAB PO SCH (08:41)
[2021-02-04 10:40] LABS: African American GFR (CKD) 63 (>60 ml/min/1.73 sqM); Anion Gap 3 mmol/L; Blood Urea Nitrogen 54 mg/dL (9-20); Calcium 8.5 mg/dL (8.4-10.2); Carbon Dioxide 20 mmol/L (22-30); Chloride 102 mmol/L (98-107); Glucose 100 mg/dL (74-99); Non-African American GFR(CKD) 55 (>60 ml/min/1.73 sqM); Sodium 125 mmol/L (137-145)
[2021-02-04 10:41] LABS: INR 0.9 (<1.2)
[2021-02-04] MEDS ORDERED: DEXTROSE 50% SYRINGE 50 ML IVP STA (10:50)
[2021-02-04] MEDS: THIAMINE 100 MG TAB PO SCH ×2 (10:53→17:43)
[2021-02-04] MEDS: FAMOTIDINE 20 MG TAB PO SCH ×2 (10:53→20:11)
[2021-02-04] MEDS: GABAPENTIN 300 MG CAP PO SCH ×4 (10:53→22:00)
[2021-02-04] MEDS: MULTIVITAMINS, THERA 1 EACH TAB PO SCH (10:53)
[2021-02-04] MEDS ORDERED: INSULIN REGULAR 100 UNIT/ML VIAL (IV) IV ONE (11:00)
[2021-02-04] MEDS: ALBUMIN HUMAN 25% 50 ML in EMPTY BAG 1 BAG IVPB SCH ×4 (11:34→17:10)
[2021-02-04 12:22] LABS: Glucose,Whole Blood 57 mg/dL (75-99)
[2021-02-04 12:46] LABS: Glucose,Whole Blood 86 mg/dL (75-99)
[2021-02-04] MEDS: SODIUM CHLORIDE 0.9% 1,000 ML IV SCH ×2 (13:44→22:02)
[2021-02-04 14:10] VITALS: BMI 19.1
[2021-02-04 17:20] LABS: Glucose,Whole Blood 89 mg/dL (75-99)
--- NOTE | 2021-02-04 18:04 | US ---
EXAMINATION TYPE: US paracentesis abd w/image DATE OF EXAM: 02/04/2021 COMPARISON: NONE HISTORY: Ascites. PROCEDURE: Maximal barrier technique was utilized. The skin overlying a suitable pocket of fluid was localized with ultrasound and the overlying skin was prepped and draped. Ultrasound was utilized with sterile technique. Lidocaine was used for local anesthesia and a skin colleen made with a scalpel. Catheter was advanced under direct ultrasound guidance into a suitable pocket of fluid and approximately 8.9 liter s of serous fluid were removed. Catheter was withdrawn and hemostasis achieved. There is no immedia te complication; the patient is discharged in stable condition. IMPRESSION: STATUS POST ULTRASOUND GUIDED PARACENTESIS FOR PALLIATION OF ASCITES. THIS PROCEDURE WA S PERFORMED BY THE UNDERSIGNED.
[2021-02-04 20:12] LABS: Glucose,Whole Blood 95 mg/dL (75-99)
[2021-02-05 07:52] LABS: Glucose,Whole Blood 135 mg/dL (75-99)
[2021-02-05] MEDS: GABAPENTIN 300 MG CAP PO SCH ×4 (08:59→21:46)
[2021-02-05] MEDS: FUROSEMIDE 40 MG TAB PO SCH (08:59)
[2021-02-05] MEDS: MULTIVITAMINS, THERA 1 EACH TAB PO SCH (08:59)
[2021-02-05] MEDS: THIAMINE 100 MG TAB PO SCH ×2 (08:59→17:32)
[2021-02-05] MEDS: FAMOTIDINE 20 MG TAB PO SCH ×2 (08:59→21:46)
--- NOTE | 2021-02-05 10:06 | P.HPIM ---
History of Present Illness H&P Date: 02/04/21 Chief Complaint: Elevated potassium level 45-year-old male with history of ascites and liver cirrhosis, hypertension, hyperlipidemia, seizure disorder, presenting to the emergency department with a chief complaint of elevated potassium levels. Patient had laboratory work o btained today around 1 PM and was contacted to come to the emergency department for an elevated potassium level of 6.2. Patient reports no previous history of hyperkalemia. Denies any nausea vomiting or diarrhea. States he had an appointment earlier today for paracentesis but it was delayed secondary to abnormal labs. He denies any chest pain, shortness of breath, weakness, lightheadedness, dizziness, headache, blurry vision. On physical examination, patient has abdominal distention but that is his baseline due to the ascites. He was supposed to have paracentesis performed today but it was delayed due to abnormal laboratory work. Repeat laboratory work obtained showed a potassium of 6.5. Patient was given albuterol, dextrose, insulin, calcium gluconate and 20 mg of IV Lasix. Patient has elevated BUN and creatinine, however this appears to be his baseline.hypermagnesemia of 2.5. Hyponatremia of 123. Review of Systems REVIEW OF SYSTEMS: CONSTITUTIONAL: No fever, no malaise, no fatigue. HEENT: No recent visual problems or hearing problems. Denied any sore throat. CARDIOVASCULAR: No chest pain, orthopnea, PND, no palpitations, no syncope. PULMONARY: No shortness of breath, no cough, no hemoptysis. GASTROINTESTINAL: No diarrhea, no nausea, no vomiting, no abdominal pain. NEUROLOGICAL: No headaches, no weakness, no numbness. HEMATOLOGICAL: Denies any bleeding or petechiae. GENITOURINARY: Denies any burning micturition, frequency, or urgency. MUSCULOSKELETAL/RHEUMATOLOGICAL: Denies any joint pain, swelling, or any muscle pain. ENDOCRINE: Denies any polyuria or polydipsia. The rest of the 14-point review of systems is negative. Past Medical History Past Medical History: Hyperlipidemia, Hypertension, Liver Disease, Seizure Disorder, Syncope Additional Past Medical History / Comment(s): hx of ETOH ABUSE-, cirrhosis History of Any Multi-Drug Resistant Organisms: None Reported Past Surgical History: No Surgical Hx Reported Additional Past Surgical History / Comment(s): paracentesis Past Anesthesia/Blood Transfusion Reactions: No Reported Reaction Smoking Status: Current every day smoker - Past Family History Mother Family Medical History: Diabetes Mellitus, Hypertension Father History Unknown: Yes Family Medical History: Hypertension Additional Family Medical History / Comment(s): alcoholism Medications and Allergies Home Medications Medication Instructions Recorded Confirmed Type Gabapentin 300 mg PO QID 10/24/20 02/03/21 History Famotidine [Pepcid] 20 mg PO BID 11/11/20 02/03/21 History Thiamine [Vitamin B-1] 100 mg PO AC-BID 11/11/20 02/03/21 History Multivitamins, Thera [Multivitamin 1 tab PO DAILY 12/02/20 02/03/21 History (formulary)] Furosemide [Lasix] 40 mg PO DAILY 01/04/21 02/03/21 History ALPRAZolam [Xanax] 0.5 mg PO DAILY PRN 01/07/21 02/03/21 History Melatonin 3 mg PO HS PRN 02/03/21 02/03/21 History Allergies Allergy/AdvReac Type Severity Reaction Status Date / Time acetaminophen [From Tylenol] Allergy Unknown Verified 02/03/21 19:30 aripiprazole [From Abilify] AdvReac Unknown Verified 02/03/21 19:30 mirtazapine AdvReac Unknown Verified 02/03/21 19:30 Physical Exam Vitals: Vital Signs Temp Pulse Pulse Resp BP BP Pulse Ox 02/04/21 10:14 107 H 16 92/47 96 02/04/21 08:00 98.4 F 90 12 92/54 96 02/04/21 05:45 98.1 F 107 H 18 92/58 96 02/03/21 20:06 98.6 F 109 H 18 97/31 99 02/03/21 18:52 86 02/03/21 18:21 86 02/03/21 18:11 80 02/03/21 18:01 84 18 96/58 98 02/03/21 15:33 98.0 F 82 18 98/62 99 Intake and Output 02/03/21 02/04/21 02/04/21 22:59 06:59 14:59 Other: # Voids 2 1 Weight 61.235 kg 62.2 kg General appearance: Present: average body habitus, cooperative, no acute distress Eyes: Present: anicteric sclerae, EOMI, PERRLA, normal appearance Neck: Present: normal ROM. Absent: lymphadenopathy, rigidity, thyromegaly Carotids: negative: bruit present Thyroid: bilateral: normal size, negative: enlarged, nodule Respiratory: bilateral: CTA, negative: rales, rhonchi, wheezing Cardiovascular; regular: normal: S1, S2; no systolic murmur, diastolic murmur Gastrointestinal: normal bowel sounds, soft, distended Genitourinary Comment(s): deferred Integumentary: Present: normal turgor. Absent: jaundiced, rash, ulcer Neurologic: Present: CNII-XII intact. Absent: focal deficits Musculoskeletal: Present: gait normal, strength equal bilaterally Psychiatric: Present: A&O x's 3, appropriate affect, intact judgment & insight Results CBC & Chem 7: 02/03/21 20:05 02/04/21 18:05 Labs: Abnormal Lab Results - Last 24 Hours (Table) 02/03/21 02/03/21 02/03/21 Range/Units 16:04 20:05 20:05 RBC 4.00 L (4.30-5.90) m/uL MCV 102.9 H (80.0-100.0) fL Sodium 123 L 123 L (137-145) mmol/L Potassium 6.5 H* 5.2 H (3.5-5.1) mmol/L Carbon Dioxide 18 L 17 L (22-30) mmol/L BUN 61 H 57 H (9-20) mg/dL Creatinine 1.78 H 1.62 H (0.66-1.25) mg/dL Glucose 108 H 176 H (74-99) mg/dL POC Glucose (mg/dL) (75-99) mg/dL Magnesium 2.5 H (1.6-2.3) mg/dL AST 65 H (17-59) U/L Total Protein 5.2 L 5.0 L (6.3-8.2) g/dL Albumin 2.8 L 2.7 L (3.5-5.0) g/dL 02/03/21 02/04/21 02/04/21 Range/Units 20:54 00:33 04:45 RBC (4.30-5.90) m/uL MCV (80.0-100.0) fL Sodium 123 L 123 L (137-145) mmol/L Potassium (3.5-5.1) mmol/L Carbon Dioxide (22-30) mmol/L BUN (9-20) mg/dL Creatinine (0.66-1.25) mg/dL Glucose (74-99) mg/dL POC Glucose (mg/dL) 159 H (75-99) mg/dL Magnesium (1.6-2.3) mg/dL AST (17-59) U/L Total Protein (6.3-8.2) g/dL Albumin (3.5-5.0) g/dL 02/04/21 02/04/21 02/04/21 Range/Units 06:40 10:12 12:21 RBC (4.30-5.90) m/uL MCV (80.0-100.0) fL Sodium 125 L (137-145) mmol/L Potassium 6.0 H (3.5-5.1) mmol/L Carbon Dioxide 20 L (22-30) mmol/L BUN 54 H (9-20) mg/dL Creatinine 1.51 H (0.66-1.25) mg/dL Glucose 100 H (74-99) mg/dL POC Glucose (mg/dL) 138 H 57 L (75-99) mg/dL Magnesium (1.6-2.3) mg/dL AST (17-59) U/L Total Protein (6.3-8.2) g/dL Albumin (3.5-5.0) g/dL Thrombosis Risk Factor Assmnt - Choose All That Apply Each Factor Represents 1 point: Age 41-60 years, Medical pt on bed rest Thrombosis Risk Factor Assessment Total Risk Factor Score: 2 Thrombosis Risk Factor Assessment Level: Low Risk Assessment and Plan Assessment: 1. Hyperkalemia; patient received albuterol, dextrose, insulin and calcium gluconate in ED; we will monitor potassium level closely with plans to consult nephrology 2. Acute renal injury; patient has history of ascites; we will start with very cautious IV fluid hydration and monitor renal function, strict SONIA's, avoid nephrotoxins and hypotension; further recommendations per nephrology 3. Transaminitis/liver cirrhosis/ascites/history of EtOH abuse - Patient remains on Lasix 40 mg daily; patient is scheduled for paracentesis as outpatient; we will consult IR versus ultrasound-guided paracentesis - Monitor liver enzymes with plans to repeat hepatic ultrasound if continuing to trend up - Continue with thiamine and folic acid 4. Hyponatremia; gentle cautious IV fluid hydration; monitor sodium levels closely until stable 5. Hypertension; currently not on any antihypertensive therapy; we will monitor blood pressure closely and make recommendations as needed 6. Anxiety; remains on Xanax 0.5 mg daily as needed; continue Neurontin 300 mg 4 times a day DVT prophylaxis; SCDs CODE STATUS; full code
[2021-02-05 11:52] LABS: ALT 14 U/L (4-49); AST 34 U/L (17-59); African American GFR (CKD) 85 (>60 ml/min/1.73 sqM); Albumin 2.2 g/dL (3.5-5.0); Albumin/Globulin Ratio 1.2; Alkaline Phosphatase 94 U/L (38-126); Anion Gap 4 mmol/L; Bilirubin,Unconjugated 0.2 mg/dL (0.0-1.1); Blood Urea Nitrogen 39 mg/dL (9-20); Calcium 8.2 mg/dL (8.4-10.2); Carbon Dioxide 19 mmol/L (22-30); Chloride 105 mmol/L (98-107); Globulin 1.9 g/dL; Glucose 104 mg/dL (74-99); Non-African American GFR(CKD) 74 (>60 ml/min/1.73 sqM); Potassium 5.1 mmol/L (3.5-5.1); Sodium 128 mmol/L (137-145); Total Bilirubin 0.3 mg/dL (0.2-1.3); Total Protein 4.1 g/dL (6.3-8.2)
[2021-02-05 11:59] LABS: Basophils # (A) 0.1 k/uL (0-0.2); Basophils % (A) 1 %; Eosinophils # (A) 0.3 k/uL (0-0.7); Eosinophils % (A) 4 %; HCT 33.8 % (39.0-53.0); HGB 11.5 gm/dL (13.0-17.5); Lymphocytes # (A) 1.2 k/uL (1.0-4.8); Lymphocytes % (A) 20 %; MCH 34.5 pg (25.0-35.0); MCHC 34.1 g/dL (31.0-37.0); MCV 101.2 fL (80.0-100.0); Macrocytosis Slight; Mean Platelet Volume 6.5; Monocytes # (A) 0.5 k/uL (0-1.0); Monocytes % (A) 8 %; Neutrophils # (A) 3.8 k/uL (1.3-7.7); Neutrophils % (A) 63 %; Platelet Count 141 k/uL (150-450); RBC 3.34 m/uL (4.30-5.90); RDW 14.1 % (11.5-15.5); WBC 6.1 k/uL (3.8-10.6)
[2021-02-05 12:56] LABS: Glucose,Whole Blood 128 mg/dL (75-99)
--- NOTE | 2021-02-05 13:55 | P.NPCON ---
History of Present Illness - Reason for Consult Consult date: 02/05/21 acute renal failure, hyperkalemia - Chief Complaint Acute kidney injury and electrolyte abnormalities - History of Present Illness This is a 45-year-old male seen in consultation because of multiple electrolyte abnormalities and acute kidney injury. On admission his sodium was 123 potassium 6.5 bicarb 18 creatinine 1.78 BUN 61. He is known with liver cirrhosis from previous alcohol use. He says he had not had anything to drink for the last 4 months. He came in because of abnormal labs. Yesterday he had 8.9 L paracentesis done. This morning he is feeling fine and denies any dizziness fever chills cough shortness of breath. No nausea vomiting diarrhea good appetite His vital signs blood pressure is sometimes at 70/33-92/56 The last 24 hours output includes 1400 mL of urine and 8800 mL of paracentesis. Intake was 3360. He received IV albumin Past Medical History Past Medical History: Hyperlipidemia, Hypertension, Liver Disease, Seizure Disorder, Syncope Additional Past Medical History / Comment(s): hx of ETOH ABUSE-, cirrhosis History of Any Multi-Drug Resistant Organisms: None Reported Past Surgical History: No Surgical Hx Reported Additional Past Surgical History / Comment(s): paracentesis Past Anesthesia/Blood Transfusion Reactions: No Reported Reaction Smoking Status: Current every day smoker - Past Family History Mother Family Medical History: Diabetes Mellitus, Hypertension Father History Unknown: Yes Family Medical History: Hypertension Additional Family Medical History / Comment(s): alcoholism Medications and Allergies Home Medications Medication Instructions Recorded Confirmed Type Gabapentin 300 mg PO QID 10/24/20 02/03/21 History Famotidine [Pepcid] 20 mg PO BID 11/11/20 02/03/21 History Thiamine [Vitamin B-1] 100 mg PO AC-BID 11/11/20 02/03/21 History Multivitamins, Thera [Multivitamin 1 tab PO DAILY 12/02/20 02/03/21 History (formulary)] Furosemide [Lasix] 40 mg PO DAILY 01/04/21 02/03/21 History ALPRAZolam [Xanax] 0.5 mg PO DAILY PRN 01/07/21 02/03/21 History Melatonin 3 mg PO HS PRN 02/03/21 02/03/21 History Allergies Allergy/AdvReac Type Severity Reaction Status Date / Time acetaminophen [From Tylenol] Allergy Unknown Verified 02/03/21 19:30 aripiprazole [From Abilify] AdvReac Unknown Verified 02/03/21 19:30 mirtazapine AdvReac Unknown Verified 02/03/21 19:30 Physical Exam Vitals: Vital Signs Temp Pulse Resp BP Pulse Ox 02/05/21 08:00 97 16 02/05/21 05:00 98.8 F 97 16 70/33 96 02/04/21 19:01 98.7 F 100 16 85/55 02/04/21 16:29 98.4 F 93 16 92/56 99 02/04/21 16:02 90 16 97/55 100 02/04/21 15:41 92 18 96/57 99 02/04/21 15:20 91 16 97/62 99 02/04/21 14:54 82 18 96/56 100 Intake and Output 02/04/21 02/05/21 02/05/21 22:59 06:59 14:59 Intake Total 1330 1180 Output Total 9400 800 0 Balance -8070 380 0 Intake: Intake, IV Titration 750 Amount Albumin Human 25% 50 ml 50 In Empty Bag 1 bag @ 200 mls/hr IVPB Q15M [facility] Rx#: [id number] Albumin Human 25% 50 ml 50 In Empty Bag 1 bag @ 200 mls/hr IVPB Q15M [facility] Rx#: [id number] Sodium Chloride 0.9% 1, 650 000 ml @ 75 mls/hr IV . [id number] [facility] Rx#:[id number] Oral 580 1180 Output: Urine 600 800 Stool 0 0 Other 8800 Other: # Voids 1 # Bowel Movements 0 0 # Emeses 0 0 Examination he is a cachectic looking male in no distress awake and alert and oriented HEENT exam no JVP neck is supple no facial asymmetry no lymphadenopathy Lungs are clear to auscultation good air entry bilaterally Heart sounds unremarkable for any murmur rub gallop Abdomen shows slight ascites. Nontender Extremity exam was no edema Neurologically awake alert oriented no asterixis Results - Lab Results Most recent lab results Calcium 8.2 mg/dL (8.4-10.2) L 02/05/21 10:55 Magnesium 2.5 mg/dL (1.6-2.3) H 02/03/21 16:04 02/05/21 10:55 02/05/21 10:55 Assessment and Plan Assessment: Impression 1. Acute kidney injury secondary to cirrhosis and low blood pressure this morning to IV fluids and IV albumin. Possibility of hepatorenal syndrome is considered but at the moment will consider this as prerenal from diuresis. There may be also additional compartment syndrome that has improved after 8.9 L paracentesis. Creatinine improved to 1.17 with hydration 2. Hyper kalemia secondary acute kidney injury. 3. Hyponatremia secondary to cirrhosis and low blood pressure and low perfusion, consequently high ADH 4. Mild degree of non-gap acidosis from acute kidney injury 5. Liver cirrhosis Recommendation 1. Hold Lasix. As potassium is improved therefore no further need for diuresis and Lasix combination 2. Continue IV fluids sodium chloride 75 an hour, this is because of the hyponatremia and acute kidney injury. 3. Watch labs urine output blood pressure. 4. May need to hepatorenal syndrome cocktail if he does not continue to improve. Thank you for this consultation we'll continue to follow closely
[2021-02-05 17:28] LABS: Glucose,Whole Blood 107 mg/dL (75-99)
[2021-02-05] MEDS: SODIUM CHLORIDE 0.9% 1,000 ML IV SCH (17:33)
[2021-02-05] MEDS: SODIUM BICARBONATE TAB 650 MG TAB PO SCH ×2 (17:33→21:46)
[2021-02-05 20:25] LABS: Glucose,Whole Blood 80 mg/dL (75-99)
[2021-02-06] MEDS: SODIUM CHLORIDE 0.9% 1,000 ML IV SCH ×3 (04:52→16:14)
[2021-02-06 06:25] LABS: Basophils % (A) 1 %; Eosinophils # (A) 0.3 k/uL (0-0.7); Eosinophils % (A) 4 %; HCT 32.7 % (39.0-53.0); HGB 11.3 gm/dL (13.0-17.5); Lymphocytes # (A) 1.5 k/uL (1.0-4.8); Lymphocytes % (A) 20 %; MCH 34.4 pg (25.0-35.0); MCHC 34.5 g/dL (31.0-37.0); Mean Platelet Volume 6.9; Monocytes # (A) 0.6 k/uL (0-1.0); Monocytes % (A) 8 %; Neutrophils # (A) 4.9 k/uL (1.3-7.7); Neutrophils % (A) 64 %; Platelet Count 144 k/uL (150-450); RBC 3.28 m/uL (4.30-5.90); RDW 13.9 % (11.5-15.5); WBC 7.6 k/uL (3.8-10.6)
[2021-02-06 08:14] LABS: Glucose,Whole Blood 127 mg/dL (75-99)
[2021-02-06] MEDS: GABAPENTIN 300 MG CAP PO SCH ×4 (08:51→21:32)
[2021-02-06] MEDS: THIAMINE 100 MG TAB PO SCH ×2 (08:51→18:29)
[2021-02-06] MEDS: SODIUM BICARBONATE TAB 650 MG TAB PO SCH ×4 (08:51→21:31)
[2021-02-06] MEDS: FAMOTIDINE 20 MG TAB PO SCH ×2 (08:51→21:31)
[2021-02-06] MEDS: MULTIVITAMINS, THERA 1 EACH TAB PO SCH (08:52)
[2021-02-06 09:35] LABS: Anion Gap 0.4 mmol/L (4.00-12.00); BUN/Creat Ratio 32.5 Ratio (12.00-20.00); Carbon Dioxide 21.6 mmol/L (21.6-31.8); Non-African American GFR(CKD) 71.6 (60.0-200.0); Potassium 5.7 mmol/L (3.5-5.5)
--- NOTE | 2021-02-06 10:22 | P.PN ---
Subjective Progress Note Date: 02/05/21 Principal diagnosis: Hyperkalemia Acute renal injury Transaminitis/ascites Hyponatremia 45-year-old male with history of ascites and liver cirrhosis, hypertension, hyperlipidemia, seizure disorder, presenting to the emergency department with a chief complaint of elevated potassium levels. Patient had laboratory work obtained today around 1 PM and was contacted to come to the emergency department for an elevated potassium level of 6.2. Patient reports no previous history of hyperkalemia. Denies any nausea vomiting or diarrhea. States he had an appointment earlier today for paracentesis but it was delayed secondary to abnormal labs. He denies any chest pain, shortness of breath, weakness, lightheadedness, dizziness, headache, blurry vision. On physical examination, patient has abdominal distention but that is his baseline due to the ascites. He was supposed to have paracentesis performed today but it was delayed due to abnormal laboratory work. Repeat laboratory work obtained showed a potassium of 6.5. Patient was given albuterol, dextrose, insulin, calcium gluconate and 20 mg of IV Lasix. Patient has elevated BUN and creatinine, however this appears to be his baseline.hypermagnesemia of 2.5. Hyponatremia of 123. Objective - Vital Signs Vital signs: Vital Signs Temp 98.4 F 02/05/21 13:55 Pulse 99 02/05/21 13:55 Resp 18 02/05/21 13:55 BP 89/52 02/05/21 13:55 Pulse Ox 100 02/05/21 13:55 Intake & Output 02/04/21 02/05/21 02/05/21 18:59 06:59 18:59 Intake Total 2180 1180 Output Total 8800 1400 0 Balance -6620 -220 0 Weight 62.2 kg Intake: Intake, IV Titration 1400 Amount Albumin Human 25% 50 ml 100 In Empty Bag 1 bag @ 200 mls/hr IVPB Q15M [facility] Rx#: [id number] Albumin Human 25% 50 ml 50 In Empty Bag 1 bag @ 200 mls/hr IVPB Q15M [facility] Rx#: [id number] Calcium Gluconate 1 gm In 100 Sodium Chloride 0.9% 100 ml @ 100 mls/hr IVPB ONCE ONE Rx#:[id number] Sodium Chloride 0.9% 1, 1150 000 ml @ 75 mls/hr IV . [id number] [facility] Rx#:[id number] Oral 780 1180 Output: Urine 0 1400 Stool 0 0 0 Urine/Stool Mix 0 Other 8800 Other: # Voids 1 # Bowel Movements 0 0 0 # Emeses 0 0 0 - Exam - Constitutional General appearance: Present: average body habitus, cooperative, no acute distress - EENT Eyes: Present: anicteric sclerae, EOMI, PERRLA, normal appearance ENT: Present: hearing grossly normal, normal oropharynx Ears: bilateral: normal - Neck Neck: Present: normal ROM. Absent: lymphadenopathy, rigidity, thyromegaly Carotids: negative: bruit present Thyroid: bilateral: normal size, negative: enlarged, nodule - Respiratory Respiratory: bilateral: CTA, negative: rales, rhonchi, wheezing - Cardiovascular Rhythm: regular Heart sounds: normal: S1, S2 Abnormal Heart Sounds: Absent: systolic murmur, diastolic murmur - Gastrointestinal General gastrointestinal: Present: normal bowel sounds, soft. Absent: d istended, organomegaly, tenderness - Genitourinary Genitourinary Comment(s): deferred - Integumentary Integumentary: Present: normal turgor. Absent: jaundiced, rash, ulcer - Neurologic Neurologic: Present: CNII-XII intact. Absent: focal deficits - Musculoskeletal Musculoskeletal: Present: gait normal, strength equal bilaterally - Psychiatric Psychiatric: Present: A&O x's 3, appropriate affect, intact judgment & insight - Labs CBC & Chem 7: 02/06/21 06:03 02/06/21 06:03 Labs: Abnormal Lab Results - Last 24 Hours (Table) 02/04/21 02/05/21 02/05/21 Range/Units 18:05 07:50 10:55 RBC 3.34 L (4.30-5.90) m/uL Hgb 11.5 L (13.0-17.5) gm/dL Hct 33.8 L (39.0-53.0) % MCV 101.2 H (80.0-100.0) fL Plt Count 141 L (150-450) k/uL Sodium 126 L (137-145) mmol/L Carbon Dioxide (22-30) mmol/L BUN (9-20) mg/dL Glucose (74-99) mg/dL POC Glucose (mg/dL) 135 H (75-99) mg/dL Calcium (8.4-10.2) mg/dL Total Protein (6.3-8.2) g/dL Albumin (3.5-5.0) g/dL 02/05/21 02/05/21 Range/Units 10:55 12:55 RBC (4.30-5.90) m/uL Hgb (13.0-17.5) gm/dL Hct (39.0-53.0) % MCV (80.0-100.0) fL Plt Count (150-450) k/uL Sodium 128 L (137-145) mmol/L Carbon Dioxide 19 L (22-30) mmol/L BUN 39 H (9-20) mg/dL Glucose 104 H (74-99) mg/dL POC Glucose (mg/dL) 128 H (75-99) mg/dL Calcium 8.2 L (8.4-10.2) mg/dL Total Protein 4.1 L (6.3-8.2) g/dL Albumin 2.2 L (3.5-5.0) g/dL Assessment and Plan Assessment: 1. Hyperkalemia; patient received albuterol, dextrose, insulin and calcium gluconate in ED; we will monitor potassium level closely with plans to consult nephrology 2. Acute renal injury; patient has history of ascites; we will start with very cautious IV fluid hydration and monitor renal function, strict SONIA's, avoid ne phrotoxins and hypotension; further recommendations per nephrology 3. Transaminitis/liver cirrhosis/ascites/history of EtOH abuse - Patient remains on Lasix 40 mg daily; patient is scheduled for paracentesis as outpatient; we will consult IR versus ultrasound-guided paracentesis - Monitor liver enzymes with plans to repeat hepatic ultrasound if continuing to trend up - Continue with thiamine and folic acid 4. Hyponatremia; gentle cautious IV fluid hydration; monitor sodium levels closely until stable 5. Hypertension; currently not on any antihypertensive therapy; we will monitor blood pressure closely and make recommendations as needed 6. Anxiety; remains on Xanax 0.5 mg daily as needed; continue Neurontin 300 mg 4 times a day DVT prophylaxis; SCDs CODE STATUS; full code
[2021-02-06 13:23] LABS: Glucose,Whole Blood 92 mg/dL (75-99)
--- NOTE | 2021-02-06 13:52 | P.PN ---
Subjective Principal diagnosis: This is a 45-year-old female seen in consultation because of cirrhosis, alcohol use, acute kidney injury secondary to low blood pressure, possible hepatorenal syndrome. Also had hyperkalemia and acute kidney injury and hyponatremia secondary to cirrhosis and low perfusion. Additionally she had mild degree of n on-gap acidosis from acute kidney injury She had a 8800 mL ascites On 02/05/2021 yesterday. Her Lasix was discontinued yesterday and IV fluids were continued at 75 mL of normal saline and hour. Urine output is documented at 300 mL only, although the creatinine is stable at 1.2 from 1.17 yesterday but improved from 1.78 on on 02/03/2021 This morning he is feeling very well no complaints thought. Is able to walk without any difficulty no dizziness no abdominal pain. His abdomen is somewhat distended with ascites in spite of the large amount paracentesis done yesterday Objective - Vital Signs Vital signs: Vital Signs Temp 98.6 F 02/06/21 05:00 Pulse 98 02/06/21 08:00 Resp 16 02/06/21 08:00 BP 80/40 02/06/21 05:00 Pulse Ox 95 02/06/21 05:00 Intake & Output 02/05/21 02/06/21 02/06/21 18:59 06:59 18:59 Intake Total 600 1850 Output Total 0 300 0 Balance 600 1550 0 Intake: Intake, IV Titration 600 900 Amount Sodium Chloride 0.9% 1, 600 900 000 ml @ 75 mls/hr IV . [id number] [facility] Rx#:[id number] Oral 950 Output: Urine 300 Stool 0 0 0 Other: # Voids 1 # Bowel Movements 0 # Emeses 0 Awake alert oriented comfortable. HEENT exam no JVP neck is supple no facial asymmetry no jaundice noted Lungs are clear to auscultation good air entry bilaterally Heart sounds unremarkable for any murmur rub gallop Abdomen soft slightly distended with ascites Extremity exam was no edema Neurologically awake alert oriented no asterixis - Labs CBC & Chem 7: 02/06/21 06:03 02/06/21 06:03 Labs: Abnormal Lab Results - Last 24 Hours (Table) 02/05/21 02/06/21 02/06/21 Range/Units 17:27 06:03 06:03 RBC 3.28 L (4.30-5.90) m/uL Hgb 11.3 L (13.0-17.5) gm/dL Hct 32.7 L (39.0-53.0) % Plt Count 144 L (150-450) k/uL Sodium 128 L (135-145) mmol/L Potassium 5.7 H (3.5-5.5) mmol/L Anion Gap 0.40 L (4.00-12.00) mmol/L BUN 39.0 H (9.0-27.0) mg/dL BUN/Creatinine Ratio 32.50 H (12.00-20.00) Ratio Glucose 124 H (70-110) mg/dL POC Glucose (mg/dL) 107 H (75-99) mg/dL Calcium 8.0 L (8.7-10.3) mg/dL 02/06/21 Range/Units 08:12 RBC (4.30-5.90) m/uL Hgb (13.0-17.5) gm/dL Hct (39.0-53.0) % Plt Count (150-450) k/uL Sodium (135-145) mmol/L Potassium (3.5-5.5) mmol/L Anion Gap (4.00-12.00) mmol/L BUN (9.0-27.0) mg/dL BUN/Creatinine Ratio (12.00-20.00) Ratio Glucose (70-110) mg/dL POC Glucose (mg/dL) 127 H (75-99) mg/dL Calcium (8.7-10.3) mg/dL Assessment and Plan Assessment: Impression 1. Acute kidney injury secondary to cirrhosis and low blood pressure, responding to IV albumin and fluids likely this is prerenal and the possible day of hepatorenal syndrome is considered but thought to be unlikely. There may be also additional compartment syndrome that has improved after 8.9 L paracentesis. Creatinine improved to 1.17 with hydration he did creatinine this morning is 1.2 he is on IV fluids 2. Hyper kalemia secondary acute kidney injury. potassium remains 5.7 sodium is 128 3. Hyponatremia secondary to cirrhosis and low blood pressure and low perfusion, consequently high ADH 4. Mild degree of non-gap acidosis from acute kidney injury 5. Liver cirrhosis 6. Hyperkalemia secondary to acute kidney injury, the recurrence of hyperkalemia is not explained. It was 6.5 improved to 5.1 yesterday, and then went up back to 5.7. Recommendation 1. bladder scan. We will rule out any obstructive element as the cause of his hyperkalemia. 2. Will increase IV fluids 150 an hour and give him Lasix 20 twice a day by mouth to induce potassium loss in the urine. 3. Continue sodium bicarb.
[2021-02-06] MEDS: FUROSEMIDE 20 MG TAB PO SCH (16:13)
[2021-02-06 18:05] LABS: Glucose,Whole Blood 166 mg/dL (75-99)
--- NOTE | 2021-02-06 18:52 | P.PN ---
Subjective Progress Note Date: 02/06/21 Principal diagnosis: Hyperkalemia Acute renal injury Transaminitis/ascites Hyponatremia 45-year-old male with history of ascites and liver cirrhosis, hypertension, hyperlipidemia, seizure disorder, presenting to the emergency department with a chief complaint of elevated potassium levels. Patient had laboratory work obtained today around 1 PM and was contacted to come to the emergency department for an elevated potassium level of 6.2. Patient reports no previous history of hyperkalemia. Denies any nausea vomiting or diarrhea. States he had an appointment earlier today for paracentesis but it was delayed secondary to abnormal labs. He denies any chest pain, shortness of breath, weakness, lightheadedness, dizziness, headache, blurry vision. On physical examination, patient has abdominal distention but that is his baseline due to the ascites. He was supposed to have paracentesis performed today but it was delayed due to abnormal laboratory work. Repeat laboratory work obtained showed a potassium of 6.5. Patient was given albuterol, dextrose, insulin, calcium gluconate and 20 mg of IV Lasix. Patient has elevated BUN and creatinine, however this appears to be his baseline.hypermagnesemia of 2.5. Hyponatremia of 123. 02/06/2021 Patient is seen and evaluated in room at bedside; reports continued feeling of weakness Vital signs are reviewed and blood pressure soft at 80/40, pulse 98, respirations 16 Labs reveal sodium of 128, potassium 5.7, BUN/creatinine of 39/1.2 Nephrology on board and has recommended IV fluid hydration for marked hypotension to avoid worsening renal failure; patient did undergo paracentesis with removal of 1.8 L of acetic fluid Objective - Vital Signs Vital signs: Vital Signs Temp 98.6 F 02/06/21 05:00 Pulse 98 02/06/21 08:00 Resp 16 02/06/21 08:00 BP 80/40 02/06/21 05:00 Pulse Ox 95 02/06/21 05:00 Intake & Output 02/05/21 02/06/21 02/06/21 18:59 06:59 18:59 Intake Total 600 1850 Output Total 0 300 0 Balance 600 1550 0 Intake: Intake, IV Titration 600 900 Amount Sodium Chloride 0.9% 1, 600 900 000 ml @ 75 mls/hr IV . [id number] [facility] Rx#:[id number] Oral 950 Output: Urine 300 Stool 0 0 0 Other: # Voids 1 # Bowel Movements 0 # Emeses 0 - Exam - Constitutional General appearance: Present: average body habitus, cooperative, no acute distress - EENT Eyes: Present: anicteric sclerae, EOMI, PERRLA, normal appearance ENT: Present: hearing grossly normal, normal oropharynx Ears: bilateral: normal - Neck Neck: Present: normal ROM. Absent: lymphadenopathy, rigidity, thyromegaly Carotids: negative: bruit present Thyroid: bilateral: normal size, negative: enlarged, nodule - Respiratory Respiratory: bilateral: CTA, negative: rales, rhonchi, wheezing - Cardiovascular Rhythm: regular Heart sounds: normal: S1, S2 Abnormal Heart Sounds: Absent: systolic murmur, diastolic murmur - Gastrointestinal General gastrointestinal: Present: normal bowel sounds, soft. Absent: distended, organomegaly, tenderness - Genitourinary Genitourinary Comment(s): deferred - Integumentary Integumentary: Present: normal turgor. Absent: jaundiced, rash, ulcer - Neurologic Neurologic: Present: CNII-XII intact. Absent: focal deficits - Musculoskeletal Musculoskeletal: Present: gait normal, strength equal bilaterally - Psychiatric Psychiatric: Present: A&O x's 3, appropriate affect, intact judgment & insight - Labs CBC & Chem 7: 02/06/21 06:03 02/06/21 06:03 Labs: Abnormal Lab Results - Last 24 Hours (Table) 02/05/21 02/06/21 02/06/21 Range/Units 17:27 06:03 06:03 RBC 3.28 L (4.30-5.90) m/uL Hgb 11.3 L (13.0-17.5) gm/dL Hct 32.7 L (39.0-53.0) % Plt Count 144 L (150-450) k/uL Sodium 128 L (135-145) mmol/L Potassium 5.7 H (3.5-5.5) mmol/L Anion Gap 0.40 L (4.00-12.00) mmol/L BUN 39.0 H (9.0-27.0) mg/dL BUN/Creatinine Ratio 32.50 H (12.00-20.00) Ratio Glucose 124 H (70-110) mg/dL POC Glucose (mg/dL) 107 H (75-99) mg/dL Calcium 8.0 L (8.7-10.3) mg/dL 02/06/21 Range/Units 08:12 RBC (4.30-5.90) m/uL Hgb (13.0-17.5) gm/dL Hct (39.0-53.0) % Plt Count (150-450) k/uL Sodium (135-145) mmol/L Potassium (3.5-5.5) mmol/L Anion Gap (4.00-12.00) mmol/L BUN (9.0-27.0) mg/dL BUN/Creatinine Ratio (12.00-20.00) Ratio Glucose (70-110) mg/dL POC Glucose (mg/dL) 127 H (75-99) mg/dL Calcium (8.7-10.3) mg/dL Assessment and Plan Assessment: 1. Hyperkalemia; patient received albuterol, dextrose, insulin and calcium gluconate in ED; we will monitor potassium level closely with plans to consult nephrology 2. Acute renal injury; patient has history of ascites; we will start with very cautious IV fluid hydration and monitor renal function, strict SONIA's, avoid nephrotoxins and hypotension; further recommendations per nephrology 3. Transaminitis/liver cirrhosis/ascites/history of EtOH abuse - Patient remains on Lasix 40 mg daily; patient is scheduled for paracentesis as outpatient; we will consult IR versus ultrasound-guided paracentesis - Monitor liver enzymes with plans to repeat hepatic ultrasound if continuing to trend up - Continue with thiamine and folic acid 4. Hyponatremia; gentle cautious IV fluid hydration; monitor sodium levels closely until stable 5. Hypertension; currently not on any antihypertensive therapy; we will monitor blood pressure closely and make recommendations as needed 6. Anxiety; remains on Xanax 0.5 mg daily as needed; continue Neurontin 300 mg 4 times a day DVT prophylaxis; SCDs CODE STATUS; full code
[2021-02-06 20:54] LABS: Glucose,Whole Blood 122 mg/dL (75-99)
[2021-02-07] MEDS: SODIUM CHLORIDE 0.9% 1,000 ML IV SCH ×4 (02:59→13:08)
[2021-02-07 07:39] LABS: Glucose,Whole Blood 97 mg/dL (75-99)
[2021-02-07] MEDS: SODIUM BICARBONATE TAB 650 MG TAB PO SCH ×4 (08:21→21:08)
[2021-02-07] MEDS: THIAMINE 100 MG TAB PO SCH ×2 (08:21→16:53)
[2021-02-07] MEDS: MULTIVITAMINS, THERA 1 EACH TAB PO SCH (08:21)
[2021-02-07] MEDS: GABAPENTIN 300 MG CAP PO SCH ×4 (08:21→21:08)
[2021-02-07] MEDS: FUROSEMIDE 20 MG TAB PO SCH ×2 (08:21→16:53)
[2021-02-07] MEDS: FAMOTIDINE 20 MG TAB PO SCH ×2 (08:21→21:08)
[2021-02-07 08:55] LABS: African American GFR (CKD) >90 (>60 ml/min/1.73 sqM); Anion Gap 3 mmol/L; Blood Urea Nitrogen 33 mg/dL (9-20); Calcium 7.7 mg/dL (8.4-10.2); Carbon Dioxide 20 mmol/L (22-30); Chloride 106 mmol/L (98-107); Glucose 102 mg/dL (74-99); Magnesium 1.8 mg/dL (1.6-2.3); Non-African American GFR(CKD) 89 (>60 ml/min/1.73 sqM); Potassium 5.2 mmol/L (3.5-5.1); Sodium 129 mmol/L (137-145)
[2021-02-07 09:04] LABS: Basophils % (A) 1 %; Eosinophils # (A) 0.4 k/uL (0-0.7); Eosinophils % (A) 5 %; HCT 35.4 % (39.0-53.0); HGB 11.8 gm/dL (13.0-17.5); Lymphocytes # (A) 1.6 k/uL (1.0-4.8); Lymphocytes % (A) 21 %; MCH 33.9 pg (25.0-35.0); MCHC 33.2 g/dL (31.0-37.0); MCV 102.1 fL (80.0-100.0); Macrocytosis Slight; Mean Platelet Volume 6.6; Monocytes # (A) 0.5 k/uL (0-1.0); Monocytes % (A) 7 %; Neutrophils # (A) 4.7 k/uL (1.3-7.7); Neutrophils % (A) 63 %; Platelet Count 152 k/uL (150-450); RBC 3.47 m/uL (4.30-5.90); WBC 7.5 k/uL (3.8-10.6)
[2021-02-07 12:23] LABS: Glucose,Whole Blood 100 mg/dL (75-99)
[2021-02-07] MEDS: HEPARIN SODIUM,PORCINE/PF 5,000 UNIT/0.5 ML SYRINGE SQ SCH ×2 (13:08→21:10)
[2021-02-07] MEDS: HYDROCORTISONE 10 MG TAB PO SCH ×2 (13:08→21:09)
--- NOTE | 2021-02-07 13:33 | P.PN ---
Subjective Progress Note Date: 02/07/21 Principal diagnosis: This is a 45-year-old female seen in consultation because of hyperkalemia and acute kidney injury and hyponatremia, etiology is cirrhosis, alcohol use, acute kidney injury secondary to low blood pressure, possible hepatorenal syndrome. Additionally she had mild degree of non-gap acidosis from acute kidney injury He had a 8800 mL ascites On 02/05/2021 Her Lasix was discontinued day before yesterday and IV fluids were continued at 75 mL of normal saline and hour. His blood pressure remains low in the 80s to 90s systolic. 24-hour output has been recorded at 300 mL only. His creatinine is improved to 1 this morning sodium has improved to 139 potassium is 5.2 bicarb is 20, all labs are improving Objective - Vital Signs Vital signs: Vital Signs Temp 98.0 F 02/07/21 12:43 Pulse 90 02/07/21 12:43 Resp 17 02/07/21 12:43 BP 95/62 02/07/21 12:43 Pulse Ox 100 02/07/21 12:43 Intake & Output 02/06/21 02/07/21 02/07/21 18:59 06:59 18:59 Intake Total 850 Output Total 0 300 Balance 850 -300 Weight 62.2 kg Intake: Oral 850 Output: Urine 300 Stool 0 0 Other: # Voids 1 1 Awake alert oriented comfortable. HEENT exam no JVP neck is supple no facial asymmetry no jaundice noted Lungs are clear to auscultation good air entry bilaterally Heart sounds unremarkable for any murmur rub gallop Abdomen soft slightly distended with ascites Extremity exam was no edema Neurologically awake alert oriented no asterixis - Labs CBC & Chem 7: 02/07/21 08:17 02/07/21 08:17 Labs: Abnormal Lab Results - Last 24 Hours (Table) 02/06/21 02/06/21 02/07/21 Range/Units 18:04 20:48 08:17 RBC 3.47 L (4.30-5.90) m/uL Hgb 11.8 L (13.0-17.5) gm/dL Hct 35.4 L (39.0-53.0) % MCV 102.1 H (80.0-100.0) fL Sodium (137-145) mmol/L Potassium (3.5-5.1) mmol/L Carbon Dioxide (22-30) mmol/L BUN (9-20) mg/dL Glucose (74-99) mg/dL POC Glucose (mg/dL) 166 H 122 H (75-99) mg/dL Calcium (8.4-10.2) mg/dL 02/07/21 02/07/21 Range/Units 08:17 12:21 RBC (4.30-5.90) m/uL Hgb (13.0-17.5) gm/dL Hct (39.0-53.0) % MCV (80.0-100.0) fL Sodium 129 L (137-145) mmol/L Potassium 5.2 H (3.5-5.1) mmol/L Carbon Dioxide 20 L (22-30) mmol/L BUN 33 H (9-20) mg/dL Glucose 102 H (74-99) mg/dL POC Glucose (mg/dL) 100 H (75-99) mg/dL Calcium 7.7 L (8.4-10.2) mg/dL Assessment and Plan Assessment: Impression 1. Acute kidney injury secondary to cirrhosis and low blood pressure, responding to IV albumin and fluids likely this is prerenal and the possible day of hepatorenal syndrome is considered but thought to be unlikely. There may be also additional compartment syndrome that has improved after 8.9 L paracentesis. Creatinine improved to 1.0 on IV fluids. 2. Hyper kalemia secondary acute kidney injury. potassium remains 5.2. Patient was on Aldactone there may be some residual effect. Bladder scan was negative. Cortisol level is 4 mcg/dL which is low normal 3. Hyponatremia secondary to cirrhosis and low blood pressure and low perfusion, consequently high ADH. Sodium is 129, slowly improving 4. Mild degree of non-gap acidosis from acute kidney injury 5. Liver cirrhosis Recommendation. 1. Discontinue IV fluids. 2. Consider ACTH stimulation test
[2021-02-07 17:35] LABS: Glucose,Whole Blood 135 mg/dL (75-99)
--- NOTE | 2021-02-07 21:22 | P.PN ---
Subjective This is a pleasant 45 years old male who was sent to the emergency room for high potassium. Potassium was 6.5 upon admission currently 5.2. Patient also found to be hyponatremic with sodium 128 currently 129. His blood pressure was 80s over 30s and he was started on normal saline at 150 mL per minute nephrology team His blood pressure improved today to 95/51 Elevated creatinine 1.7 down to 1.1. Baseline 81.0-2.1 since . Cortisol level checked this morning it was low at 4 with normal TSH of 4.6. Currently patient kept on normal saline and started on Cortef 10 mg twice a day Also we will check abdominal ultrasound for his abdomen is distended Other than Patient lying in bed denies any dizziness or headache or weakness. No chest pain or dyspnea. Abdomen is distended but minimal leg edema, no abdominal pain or other pain Objective - Vital Signs Vital signs: Vital Signs Temp 98.0 F 02/07/21 12:43 Pulse 90 02/07/21 12:43 Resp 17 02/07/21 12:43 BP 95/62 02/07/21 12:43 Pulse Ox 100 02/07/21 12:43 Intake & Output 02/06/21 02/07/21 02/07/21 18:59 06:59 18:59 Intake Total 850 Output Total 0 300 Balance 850 -300 Weight 62.2 kg Intake: Oral 850 Output: Urine 300 Stool 0 0 Other: # Voids 1 1 - Exam GENERAL: The patient is alert and oriented x3, not in any acute distress. Well developed, well nourished. HEENT: Pupils are round and equally reacting to light. EOMI. No scleral icterus. No conjunctival pallor. Normocephalic, atraumatic. No pharyngeal erythema. No thyromegaly. CARDIOVASCULAR: S1 and S2 present. No murmurs, rubs, or gallops. PULMONARY: Chest is clear to auscultation, no wheezing or crackles. -ABDOMEN: Soft, nontender, distended, normoactive bowel sounds. No palpable organomegaly. MUSCULOSKELETAL: No joint swelling or deformity. EXTREMITIES: No cyanosis, clubbing, or pedal edema. NEUROLOGICAL: Gross neurological examination did not reveal any focal deficits. SKIN: No rashes. no petechiae. - Labs CBC & Chem 7: 02/07/21 08:17 02/07/21 08:17 Labs: Abnormal Lab Results - Last 24 Hours (Table) 02/06/21 02/06/21 02/07/21 Range/Units 18:04 20:48 08:17 RBC 3.47 L (4.30-5.90) m/uL Hgb 11.8 L (13.0-17.5) gm/dL Hct 35.4 L (39.0-53.0) % MCV 102.1 H (80.0-100.0) fL Sodium (137-145) mmol/L Potassium (3.5-5.1) mmol/L Carbon Dioxide (22-30) mmol/L BUN (9-20) mg/dL Glucose (74-99) mg/dL POC Glucose (mg/dL) 166 H 122 H (75-99) mg/dL Calcium (8.4-10.2) mg/dL 02/07/21 02/07/21 Range/Units 08:17 12:21 RBC (4.30-5.90) m/uL Hgb (13.0-17.5) gm/dL Hct (39.0-53.0) % MCV (80.0-100.0) fL Sodium 129 L (137-145) mmol/L Potassium 5.2 H (3.5-5.1) mmol/L Carbon Dioxide 20 L (22-30) mmol/L BUN 33 H (9-20) mg/dL Glucose 102 H (74-99) mg/dL POC Glucose (mg/dL) 100 H (75-99) mg/dL Calcium 7.7 L (8.4-10.2) mg/dL Assessment and Plan Assessment: Hypotension, with local digital level suspicious for adrenal insufficiency Low-normal sugar Decompensated liver cirrhosis with ascites Hyponatremia, hypovolemic History of depression and anxiety, not an active issue History of alcoholic liver disease, patient quit 4 months ago. History of seizure disorder, currently on gabapentin Plan: This is a pleasant 45 years old male with liver cirrhosis, presents with hypertension, hyponatremia and low normal blood glucose Start the patient on Cortef Patient on normal saline at 1 50 mL/h. 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 Continue same treatment. Continue with symptomatic treatment. Resume home medication. Monitor lytes and vitals. DVT and GI prophylaxis. Further recommendations as per clinical course of the patient DVT prophylaxis: Subcutaneous heparin GI Prophylaxis: Pepcid PT/OT: Pending Prognosis is guarded
[2021-02-07 21:28] LABS: Glucose,Whole Blood 115 mg/dL (75-99)
[2021-02-08 07:02] LABS: Glucose,Whole Blood 124 mg/dL (75-99)
[2021-02-08] MEDS: GABAPENTIN 300 MG CAP PO SCH ×4 (07:54→21:43)
[2021-02-08] MEDS: SODIUM BICARBONATE TAB 650 MG TAB PO SCH ×4 (07:55→21:43)
[2021-02-08] MEDS: HYDROCORTISONE 10 MG TAB PO SCH ×2 (07:55→20:28)
[2021-02-08] MEDS: MULTIVITAMINS, THERA 1 EACH TAB PO SCH (07:55)
[2021-02-08] MEDS: THIAMINE 100 MG TAB PO SCH ×2 (07:55→16:32)
[2021-02-08] MEDS: HEPARIN SODIUM,PORCINE/PF 5,000 UNIT/0.5 ML SYRINGE SQ SCH ×2 (07:56→20:29)
[2021-02-08] MEDS: FAMOTIDINE 20 MG TAB PO SCH ×2 (07:56→20:28)
[2021-02-08] MEDS: FUROSEMIDE 20 MG TAB PO SCH ×2 (08:01→16:32)
--- NOTE | 2021-02-08 10:08 | US ---
EXAMINATION TYPE: US abdomen limited DATE OF EXAM: 02/08/2021 COMPARISON: Multiple ultrasounds. Most recent 02/04/21 CLINICAL HISTORY: check for ascites. Abdomen scanned for ascites check. Fluid is and all 4 quadrants. Findings appear similar or slightly less in recent comparison IMPRESSION: Ascites
[2021-02-08 11:18] LABS: African American GFR (CKD) >90 (>60 ml/min/1.73 sqM); Anion Gap 3 mmol/L; Blood Urea Nitrogen 35 mg/dL (9-20); Calcium 8.1 mg/dL (8.4-10.2); Carbon Dioxide 17 mmol/L (22-30); Chloride 108 mmol/L (98-107); Glucose 126 mg/dL (74-99); Magnesium 1.9 mg/dL (1.6-2.3); Non-African American GFR(CKD) >90 (>60 ml/min/1.73 sqM); Potassium 5.2 mmol/L (3.5-5.1); Sodium 128 mmol/L (137-145)
[2021-02-08 11:54] LABS: Glucose,Whole Blood 134 mg/dL (75-99)
--- NOTE | 2021-02-08 14:26 | P.PN ---
Subjective This is a pleasant 45 years old male who was sent to the emergency room for high potassium. Potassium was 6.5 upon admission currently 5.2. Patient also found to be hyponatremic with sodium 128 currently 129. His blood pressure was 80s over 30s and he was started on normal saline at 150 mL per minute nephrology team His blood pressure improved today to 95/51 Elevated creatinine 1.7 down to 1.1. Baseline 81.0-2.1 since . Cortisol level checked this morning it was low at 4 with normal TSH of 4.6. Currently patient kept on normal saline and started on Cortef 10 mg twice a day Also we will check abdominal ultrasound for his abdomen is distended Other than Patient lying in bed denies any dizziness or headache or weakness. No chest pain or dyspnea. Abdomen is distended but minimal leg edema, no abdominal pain or other pain 02/08/21 Today he is doing better, awake and oriented but he was very drowsy when I saw him in the afternoon stating he did not get good sleep last night. He did not had bowel movement was yesterday selected was was ordered. Her on he worked with physical and occupational therapy and he did well, he was walking the hallway, he does not need to rehab and he declined any home care. Patient was asking if he can be discharged home today. Blood pressure is still low normal but improved with systolic in the 90s. Sodium still low at 128, potassium 5.2. IV fluids were stopped and is currently only on Cortef 10 mg twice a day, white benefit from endocrinology evaluation as an outpatient was tried to be made by staff for him with Dr. Epps however they requested referral from his PCP. His creatinine improved to 0.9 today. GI consult, he has some abdominal ascites Possible discharge in 24-48 hours if he keeps improving Objective - Vital Signs Vital signs: Vital Signs Temp 98.8 F 02/08/21 12:13 Pulse 82 02/08/21 12:13 Resp 17 02/08/21 12:13 BP 90/58 02/08/21 12:13 Pulse Ox 96 02/08/21 12:13 Intake & Output 02/07/21 02/08/21 02/08/21 18:59 06:59 18:59 Intake Total 400 240 Output Total 0 400 0 Balance 400 -160 0 Weight 62.2 kg Intake: Oral 400 240 Output: Urine 400 Stool 0 0 Other: Voiding Method Toilet Toilet Urinal # Voids 1 2 - Exam GENERAL: The patient is alert and oriented x3, not in any acute distress. Well developed, well nourished. HEENT: Pupils are round and equally reacting to light. EOMI. No scleral icterus. No conjunctival pallor. Normocephalic, atraumatic. No pharyngeal erythema. No thyromegaly. CARDIOVASCULAR: S1 and S2 present. No murmurs, rubs, or gallops. PULMONARY: Chest is clear to auscultation, no wheezing or crackles. -ABDOMEN: Soft, nontender, distended, normoactive bowel sounds. No palpable organomegaly. MUSCULOSKELETAL: No joint swelling or deformity. EXTREMITIES: No cyanosis, clubbing, or pedal edema. NEUROLOGICAL: Gross neurological examination did not reveal any focal deficits. SKIN: No rashes. no petechiae. - Labs CBC & Chem 7: 02/07/21 08:17 02/08/21 10:22 Labs: Abnormal Lab Results - Last 24 Hours (Table) 02/07/21 02/07/21 02/08/21 Range/Units 17:33 21:11 07:01 Sodium (137-145) mmol/L Potassium (3.5-5.1) mmol/L Chloride (98-107) mmol/L Carbon Dioxide (22-30) mmol/L BUN (9-20) mg/dL Glucose (74-99) mg/dL POC Glucose (mg/dL) 135 H 115 H 124 H (75-99) mg/dL Calcium (8.4-10.2) mg/dL 02/08/21 02/08/21 Range/Units 10:22 11:53 Sodium 128 L (137-145) mmol/L Potassium 5.2 H (3.5-5.1) mmol/L Chloride 108 H (98-107) mmol/L Carbon Dioxide 17 L (22-30) mmol/L BUN 35 H (9-20) mg/dL Glucose 126 H (74-99) mg/dL POC Glucose (mg/dL) 134 H (75-99) mg/dL Calcium 8.1 L (8.4-10.2) mg/dL Assessment and Plan Assessment: Hypotension, with low cortisol level level suspicious for adrenal insufficiency Low-normal sugar Decompensated liver cirrhosis with ascites, status post paracentesis Hyponatremia, hypovolemic History of depression and anxiety, not an active issue History of alcoholic liver disease, patient quit 4 months ago. History of seizure disorder, currently on gabapentin Plan: This is a pleasant 45 years old male with liver cirrhosis, presents with hypertension, hyponatremia and low normal blood glucose Start the patient on Cortef Discontinue IV fluids. Continue with oral Lasix. Content Assistant team on the case Consults GI team Monitor glucose, sodium and blood pressure Check ultrasound of the abdomen Labs and medication were reviewed.. Continue same treatment. Continue with symptomatic treatment. Resume home medication. Monitor lytes and vitals. DVT and GI prophylaxis. Further recommendations as per clinical course of the patient DVT prophylaxis: Subcutaneous heparin GI Prophylaxis: Pepcid PT/OT: Recommended home with family Prognosis is guarded
--- NOTE | 2021-02-08 15:08 | P.CONS ---
History of Present Illness - Reason for Consult Consult date: 02/08/21 cirrhosis, ascites Requesting physician: Misbah E Sheet - Chief Complaint Abnormal labs - History of Present Illness This is a 45-year-old male with a history of alcoholic cirrhosis of the liver with recurrent ascites diagnosed a year ago who presented to the emergency dep artment 5 days ago with elevated potassium levels. He has been followed by gastroenterology in the past. He has been alcohol free for the last 4 months duration. He's been having weekly paracentesis, his last paracentesis was 9 02/04/2021 with 8.9 L of fluid removed. Patient also recently underwent an elective EGD with Dr. Vargas to screen for esophageal varices. Findings included large mid/distal esophageal varices with no stigmata of bleeding. Moderate portal hypertensive gastropathy. He was started on propranolol 10 mg 3 times a day at that time. Prior to admission he was taking Lasix 40 mg daily. Admitting labs WBC 6.1, hemoglobin 11.5, hematocrit 33, platelet count 141,000, INR 0.9, sodium 126, potassium 6.0, B1 54, creatinine 1.51, total bilirubin 0.3, AST 34, ALT 14, alkaline phosphatase 94. Nephrology has been on consult, today's repeat sodium 128, potassium 5.2. He is currently on Lasix 20 mg twice a day. He had a repeat ultrasound today showing fluid in all 4 quadrants, findings similar and slightly less in recent comparison. Patient states he goes for paracentesis. He is currently denying any abdominal pain, nausea, vomiting, shortness of breath, chest pain, or swelling. Review of Systems REVIEW OF SYSTEMS: CARDIOPULMONARY: No chest pain or shortness of breath. Gastrointestinal: No abdominal pain. Patient has recurrent ascites, requiring paracentesis weekly. No nausea or vomiting. No hematemesis, coffee-ground emesis. No rectal bleeding, or melena. GENITOURINARY: No dysuria or hematuria. MUSCULOSKELETAL: Reports normal range of motion., Joint pain. SKIN: No rashes. No jaundice. ENDOCRINE: No chills, fevers. No excessive weight gain or loss. No polydipsia or polyuria. PSYCHIATRIC: Unremarkable. NEUROLOGY: No change in mental status. Denies dizziness, headache. ENT: Vision unremarkable. CONSTITUTIONAL: No recent weight loss. No fever, chills, night sweats. Past Medical History Past Medical History: Hyperlipidemia, Hypertension, Liver Disease, Seizure Disorder, Syncope Additional Past Medical History / Comment(s): hx of ETOH ABUSE-, cirrhosis History of Any Multi-Drug Resistant Organisms: None Reported Past Surgical History: No Surgical Hx Reported Additional Past Surgical History / Comment(s): paracentesis Past Anesthesia/Blood Transfusion Reactions: No Reported Reaction Smoking Status: Current every day smoker - Past Family History Mother Family Medical History: Diabetes Mellitus, Hypertension Father History Unknown: Yes Family Medical History: Hypertension Additional Family Medical History / Comment(s): alcoholism Medications and Allergies Home Medications Medication Instructions Recorded Confirmed Type Gabapentin 300 mg PO QID 10/24/20 02/03/21 History Famotidine [Pepcid] 20 mg PO BID 11/11/20 02/03/21 History Thiamine [Vitamin B-1] 100 mg PO AC-BID 11/11/20 02/03/21 History Multivitamins, Thera [Multivitamin 1 tab PO DAILY 12/02/20 02/03/21 History (formulary)] Furosemide [Lasix] 40 mg PO DAILY 01/04/21 02/03/21 History ALPRAZolam [Xanax] 0.5 mg PO DAILY PRN 01/07/21 02/03/21 History Melatonin 3 mg PO HS PRN 02/03/21 02/03/21 History Allergies Allergy/AdvReac Type Severity Reaction Status Date / Time acetaminophen [From Tylenol] Allergy Unknown Verified 02/03/21 19:30 aripiprazole [From Abilify] AdvReac Unknown Verified 02/03/21 19:30 mirtazapine AdvReac Unknown Verified 02/03/21 19:30 Physical Exam Vitals: Vital Signs Temp Pulse Pulse Resp BP Pulse Ox 02/08/21 12:13 98.8 F 82 17 90/58 96 02/08/21 12:11 89 14 02/08/21 08:00 92 14 02/08/21 07:38 98.4 F 89 14 92/53 02/08/21 04:50 98.4 F 98 20 96/59 98 02/07/21 19:21 98.5 F 91 18 91/51 96 02/07/21 19:15 91 18 Intake and Output 02/07/21 02/08/21 02/08/21 22:59 06:59 14:59 Intake Total 640 Output Total 400 0 Balance 640 -400 0 Intake: Oral 640 Output: Urine 400 Stool 0 Other: Voiding Method Toilet Toilet Urinal # Voids 1 2 General appearance: The patient is alert, oriented, appears in no acute distres s. HET: Head is normocephalic and atraumatic. Conjunctiva pink. Sclera anicteric. Neck: Supple without lymphadenopathy. Trachea midline. Heart: S1 S2. Regular rate and rhythm. Lungs: Clear to auscultation. Abdomen: Soft, nontender, distention with ascites, nondistended with bowel sounds. No guarding or rigidity. Skin: No rashes. No jaundice. Extremities: Normal skin color and turgor. No pedal edema. Neurological: No focal deficits. Alert and oriented 3.. Results CBC & Chem 7: 02/07/21 08:17 02/08/21 10:22 Labs: Abnormal Lab Results - Last 24 Hours (Table) 02/07/21 02/07/21 02/08/21 Range/Units 17:33 21:11 07:01 Sodium (137-145) mmol/L Potassium (3.5-5.1) mmol/L Chloride (98-107) mmol/L Carbon Dioxide (22-30) mmol/L BUN (9-20) mg/dL Glucose (74-99) mg/dL POC Glucose (mg/dL) 135 H 115 H 124 H (75-99) mg/dL Calcium (8.4-10.2) mg/dL 02/08/21 02/08/21 Range/Units 10:22 11:53 Sodium 128 L (137-145) mmol/L Potassium 5.2 H (3.5-5.1) mmol/L Chloride 108 H (98-107) mmol/L Carbon Dioxide 17 L (22-30) mmol/L BUN 35 H (9-20) mg/dL Glucose 126 H (74-99) mg/dL POC Glucose (mg/dL) 134 H (75-99) mg/dL Calcium 8.1 L (8.4-10.2) mg/dL Assessment and Plan (1) Alcoholic cirrhosis of liver with ascites Narrative/Plan: 45-year-old male with a history of alcoholic cirrhosis of the liver with ascites, diagnosed about a year ago. Patient has a history of significant alcohol abuse in the past, he quit approximately 4 years ago. He is being followed and managed out patient by gastroenterology. He has weekly paracentesis with 7-9 L removed weekly. His last paracentesis was on 02/04/2021 with 8.9 L of fluid removed. Patient was admitted for hyperkalemia, he had outpatient labs done with a potassium level as high as 6.5. Nephrology is following patient. He is on Lasix 20 mg twice a day. He is scheduled for his next outpatient paracentesis on . Electrolytes are improving. Patient is to follow-up with gastroenterology to set up outpatient appointment with liver transplant team at [facility]. Current Visit: No Status: Acute Code(s): K70.31 - ALCOHOLIC CIRRHOSIS OF LIVER WITH ASCITES SNOMED Code(s): 658243545 (2) Hyperkalemia Current Visit: Yes Status: Acute Code(s): E87.5 - HYPERKALEMIA SNOMED Code(s): 01825317 (3) Hyponatremia Current Visit: Yes Status: Acute Code(s): E87.1 - HYPO-OSMOLALITY AND HYPONATREMIA SNOMED Code(s): 23623865 Plan: 1. Continue symptomatic and supportive care 2. Continue Lasix per recommendations from nephrology 3. Low sodium diet 4. Fluid restrictions 5. Continue palliative outpatient paracentesis as scheduled 6. Patient to follow-up with gastroenterology outpatient he is awaiting outpatient follow-up with liver transplant team at [facility] 7. Patient is cleared by gastroenterology for discharge. He may have a outpatient paracentesis as scheduled this Thank you for this consultation, we will continue to follow. Dr. Karla Vargas I agree with the dictator's note, documented as a scribe by Karin Dennis.
[2021-02-08] MEDS: LACTULOSE 20 GM/30 ML CUP PO SCH ×2 (16:32→21:44)
[2021-02-08 17:06] LABS: Glucose,Whole Blood 131 mg/dL (75-99)
--- NOTE | 2021-02-08 18:20 | PN ---
PROGRESS NOTE The patient is seen for followup for acute kidney injury, which appears to be mostly prerenal. The patient has been started on Cortef, as his random cortisol was as low as 4. His blood pressure remains on the lower side. Serum creatinine has improved to 0.9 from 1.7 on initial admission. On examination, blood pressure 90/58, heart rate 82 per minute. Patient is afebrile. EXAMINATION OF THE HEART: S1 and S2. EXAMINATION OF LUNGS: Bilateral breath sounds are heard. ABDOMEN: Soft, nontender. LOWER EXTREMITIES: Examination of lower extremities shows no evidence of edema. HAT AND CAP SEWER EXAM: Grossly intact. Labs show sodium 128, potassium 5.2, chloride 108, CO2 17, BUN 35, serum creatinine 0.9 mg/dL. ASSESSMENT: 1. Acute kidney injury, prerenal, currently improved. There may be a component of compartment syndrome, which has improved after paracentesis of about 8.9 L. 2. Hyperkalemia associated with acute kidney injury. Patient is also maintained on Aldactone and also the adrenal insufficiency most likely contributing to it. Currently maintained on sodium bicarb and Lasix and off of Aldactone. 3. Hyponatremia secondary to liver cirrhosis, low blood pressure. Currently improving. 4. Liver cirrhosis. PLAN: Continue with Cortef, as blood pressure remains low. Add midodrine. May continue with the sodium bicarb for now and repeat labs in a.m. MMTAMARAL / IJN: [id number] /
[2021-02-08] MEDS ORDERED: traMADol 50 MG TAB PO PRN (19:58)
[2021-02-08 20:42] LABS: Glucose,Whole Blood 105 mg/dL (75-99)
[2021-02-09 07:20] LABS: Glucose,Whole Blood 139 mg/dL (75-99)
[2021-02-09 09:51] LABS: Mean Platelet Volume 7.2; Platelet Count 157 k/uL (150-450)
[2021-02-09 10:02] LABS: INR 0.9 (<1.2); Prothrombin Time 10.2 sec (9.0-12.0)
[2021-02-09 10:04] LABS: African American GFR (CKD) >90 (>60 ml/min/1.73 sqM); Non-African American GFR(CKD) 86 (>60 ml/min/1.73 sqM)
--- NOTE | 2021-02-09 11:42 | P.PN ---
Subjective Progress Note Date: 02/09/21 Principal diagnosis: cirrhosis of the liver with ascites This is a 45-year-old male with a history of alcoholic cirrhosis of the liver with recurrent ascites diagnosed a year ago who presented to the emergency department 5 days ago with elevated potassium levels. He has been followed by gastroenterology in the past. He has been alcohol free for the last 4 months duration. He's been having weekly paracentesis, his last paracentesis was 02/04/2021 with 8.9 L of fluid removed. Patient also recently underwent an elective EGD with Dr. Vargas to screen for esophageal varices. Findings included large mid/distal esophageal varices with no stigmata of bleeding. Moderate portal hypertensive gastropathy. Today he is seen and examined lying in bed. He states he is doing well. He does have abdominal distention and discomfort. He is scheduled for paracentesis today. He's been afebrile. Today's labs are currently pending. Objective - Vital Signs Vital signs: Vital Signs Temp 98.8 F 02/09/21 04:40 Pulse 106 H 02/09/21 04:40 Resp 18 02/09/21 04:40 BP 104/64 02/09/21 04:40 Pulse Ox 98 02/09/21 04:40 Intake & Output 02/08/21 02/09/21 02/09/21 18:59 06:59 18:59 Intake Total 720 480 Output Total 0 Balance 720 480 Intake: Oral 720 480 Output: Stool 0 Other: Voiding Method Toilet Toilet # Voids 4 1 # Bowel Movements 3 - Exam General appearance: The patient is alert, oriented, appears in no acute distress. HET: Head is normocephalic and atraumatic. Conjunctiva pink. Sclera anicteric. Neck: Supple without lymphadenopathy. Abdomen: Soft, nontender, distended with bowel sounds. No guarding or rigidity. Extremities: Normal skin color and turgor. No pedal edema Skin: No rashes, no jaundice Neurological: No focal deficits. Alert and oriented 3. - Labs CBC & Chem 7: 02/09/21 08:51 02/09/21 08:51 Labs: Abnormal Lab Results - Last 24 Hours (Table) 02/08/21 02/08/21 02/08/21 Range/Units 10:22 11:53 16:54 Sodium 128 L (137-145) mmol/L Potassium 5.2 H (3.5-5.1) mmol/L Chloride 108 H (98-107) mmol/L Carbon Dioxide 17 L (22-30) mmol/L BUN 35 H (9-20) mg/dL Glucose 126 H (74-99) mg/dL POC Glucose (mg/dL) 134 H 131 H (75-99) mg/dL Calcium 8.1 L (8.4-10.2) mg/dL 02/08/21 02/09/21 Range/Units 20:39 07:19 Sodium (137-145) mmol/L Potassium (3.5-5.1) mmol/L Chloride (98-107) mmol/L Carbon Dioxide (22-30) mmol/L BUN (9-20) mg/dL Glucose (74-99) mg/dL POC Glucose (mg/dL) 105 H 139 H (75-99) mg/dL Calcium (8.4-10.2) mg/dL Assessment and Plan (1) Alcoholic cirrhosis of liver with ascites Narrative/Plan: 45-year-old male with a history of alcoholic cirrhosis of the liver with ascites, diagnosed about a year ago. Patient has a history of significant alcohol abuse in the past, he quit approximately 4 years ago. He is being followed and managed out patient by gastroenterology. He has weekly paracentesis with 7-9 L removed weekly. His last paracentesis was on 02/04/2021 with 8.9 L of fluid removed. Patient was admitted for hyperkalemia, he had outpatient labs done with a potassium level as high as 6.5. Nephrology is following patient. He is on Lasix 20 mg twice a day. He is scheduled for his next outpatient paracentesis on . Electrolytes are improving. Patient is to follow-up with gastroenterology to set up outpatient appointment with liver transplant team at [facility]. Current Visit: No Status: Acute Code(s): K70.31 - ALCOHOLIC CIRRHOSIS OF LIVER WITH ASCITES SNOMED Code(s): 261789356 (2) Hyperkalemia Current Visit: Yes Status: Acute Code(s): E87.5 - HYPERKALEMIA SNOMED Code(s): 86908205 (3) Hyponatremia Current Visit: Yes Status: Acute Code(s): E87.1 - HYPO-OSMOLALITY AND HYPONATREMIA SNOMED Code(s): 17165946 Plan: 1. Continue symptomatic and supportive care 2. Continue Lasix per recommendations from nephrology 3. Low sodium diet 4. Fluid restrictions 5. Continue palliative outpatient paracentesis as scheduled 6. Patient to follow-up with gastroenterology outpatient he is awaiting outpatient follow-up with liver transplant team at [facility] 7. Patient is cleared by gastroenterology for discharge. Continue with weekly palliative paracentesis. Thank you for this consultation, we will continue to follow. Dr. Karla Vargas I agree with the dictator's note, documented as a scribe by Karin Dennis.
[2021-02-09] MEDS: HEPARIN SODIUM,PORCINE/PF 5,000 UNIT/0.5 ML SYRINGE SQ SCH (11:55)
[2021-02-09 12:03] LABS: Glucose,Whole Blood 130 mg/dL (75-99)
[2021-02-09] MEDS: GABAPENTIN 300 MG CAP PO SCH ×2 (12:08→12:19)
[2021-02-09] MEDS: SODIUM BICARBONATE TAB 650 MG TAB PO SCH ×2 (12:09→12:19)
[2021-02-09] MEDS: MULTIVITAMINS, THERA 1 EACH TAB PO SCH (12:09)
[2021-02-09] MEDS: LACTULOSE 20 GM/30 ML CUP PO SCH ×2 (12:09→15:25)
[2021-02-09] MEDS: FUROSEMIDE 20 MG TAB PO SCH ×2 (12:09→15:25)
[2021-02-09] MEDS: FAMOTIDINE 20 MG TAB PO SCH (12:09)
[2021-02-09] MEDS: THIAMINE 100 MG TAB PO SCH (12:09)
[2021-02-09] MEDS: HYDROCORTISONE 10 MG TAB PO SCH (12:09)
[2021-02-09] MEDS: ALBUMIN HUMAN 25% 50 ML in EMPTY BAG 1 BAG IVPB SCH ×4 (12:10→15:23)
--- NOTE | 2021-02-09 12:14 | US ---
Ultrasound-guided paracentesis. DATE OF EXAM: 02/09/2021 CLINICAL HISTORY: Ascites The procedure was discussed with the patient. The risks, complications, benefits, and alternatives we re discussed and any questions were answered. Informed consent was obtained. The patient was placed s upine on the ultrasound table and prepped and draped in the usual sterile fashion. All elements of maximal barrier technique were utilized. Under ultrasound guidance, access into the right lower quadrant was obtained, via the paracentesis catheter system and direct ultrasound guidanc e. Approximately 10.4 liters of straw-colored fluid was removed. The patient was stable throughout the p rocedure and remained stable upon discharge from Department of Radiology. IMPRESSION: Successful paracentesis under ultrasound guidance.
[2021-02-09 12:21] VITALS: BP 93/57; PULSE 95; RESP 17; TEMP 98.1
[2021-02-09 12:52] LABS: African American GFR (CKD) 103.4 (60.0-200.0); Anion Gap 7.8 mmol/L (4.00-12.00); Carbon Dioxide 19.2 mmol/L (21.6-31.8); Non-African American GFR(CKD) 89.2 (60.0-200.0); Potassium 4.7 mmol/L (3.5-5.5)
[2021-02-09] MEDS ORDERED: MIDODRINE 5 MG TAB PO SCH (17:30)
--- NOTE | 2021-02-09 17:47 | PN ---
PROGRESS NOTE Patient is seen for followup for acute kidney injury associated with hypotension. He was found to have adrenal insufficiency and has been started on Cortef. Blood pressure remains on the lower side with systolic around 91-93 mmHg. PHYSICAL EXAMINATION: On examination today, blood pressure 93-57, heart rate 95 per minute. He is afebrile. Examination of the heart S1, S2. Examination of lungs, decreased breath sounds at bases. Abdomen is soft, nontender. Examination of lower extremities shows no evidence of edema. FRONT END MECHANIC exam grossly intact. LAB: Show sodium 132, potassium 4.7, BUN 36, creatinine 1.0. CO2 was 19.2. ASSESSMENT: 1. Acute kidney injury secondary to hypotension, volume depletion, currently improved. 2. Hyperkalemia associated with acute kidney injury, maintained on Aldactone, currently stable. The patient's Aldactone is on hold. 3. Hyponatremia associated with liver cirrhosis, low blood pressure, currently improved. 4. Liver cirrhosis. 5. Hypotension, secondary to adrenal insufficiency maintained on Cortef. Add midodrine. PLAN: Add midodrine. Recommend to have patient see Endocrinology as outpatient post discharge. MMODL / IJN: [id number] /
--- NOTE | 2021-02-09 20:21 | P.DS ---
Providers Date of admission: 02/03/21 19:06 Attending physician: Silvana Peacock MD Consults: 02/04/21 13:00 Consult Physician Routine Consulting Provider: Agapito Freitas Consult Reason/Comments: hyperkalemia/hypontremia Do you want consulting provider notified?: Yes 02/08/21 12:21 Consult Physician Urgent Consulting Provider: Rula Vargas Consult Reason/Comments: cirrhosis Do you want consulting provider notified?: Yes Primary care physician: [facility] Hospital Course: Diagnoses: Hypotension, with low cortisol level level suspicious for adrenal insufficiency. Improved Low-normal sugar Decompensated liver cirrhosis with ascites, status post paracentesis 2 Hyponatremia, hypovolemic, stable and patient is asymptomatic Hyperkalemia, improved History of depression and anxiety, not an active issue History of alcoholic liver disease, patient quit 4 months ago. History of seizure disorder, currently on gabapentin Hospital course: This is a pleasant 45 years old male who was sent to the emergency room for high potassium. Also on admission he has acute kidney injury with creatinine 1.7, sodium was low at 128. Blood pressure on the low side 86/38. He was on Lasix 40 mg daily at home. Patient has been evaluated by application penetration tester and marble mason. He was found to be hypotensive secondary to liver cirrhosis complicated by dehydration and low cortisol level suspicious for adrenal insufficiency however no ACTH stimulation test was done. And patient was referred for outpatient follow-up with silviculturist to finish the test. Patient was treated with aggressive hydration with normal saline at 150 mL per hour, Cortef 10 mg twice a day admitted. Also I did the day of discharge. Patient underwent paracentesis with 8.6 L and another one with more than 10 L with taken out on the day of discharge. Patient symptoms significantly improved and on the day of discharge his back to his baseline. With no dizziness, walking normally in the hallway. No chest pain or dyspnea. No headache or weakness or numbness. No change in urine or bowel habits. No fever. Sodium improved to 132 upon discharge on sodium back to normal at 4.7 Patient was cleared for discharge by both GI and nephrology teams Problems and management plan were discussed with the patient and he verbalized understanding and acceptance Patient was found stable and can be discharged home however he needs follow-up as an outpatient. Patient was instructed to follow up with PCP within one week and patient agrees An appointment was made for him with the [place] [facility] on 02/15 next Week with his ZONING ENGINEER Sammy Estrella, actually I called Sammy today and I discussed the case with him, his illness, problems and management plan with recommendation to refer him for silviculturist as an outpatient with Dr. Epps or Dr. Jc as he needs referral when staff tried to make appointments for him. I told him that I'm going to prescribe 10 days of Cortef for him with recommendation for him to develop more prescription and refer him to silviculturist for evaluation for possible adrenal insufficiency, and he kindly took note of this. Also patient was Made aware of this plan and he agrees. Patient was instructed to follow up with Dr. Sam LEON and he agrees with appointment on 02/[address] Freitas on 03/03 and he agrees to follow up. Patient was instructed to follow up also with liver transplant team at [facility] per recommendation of Dr. Vargas and he agrees since he is been abstinent from alcohol drinking for the last 4 months per Patient himself Physical exam Gen: patient is a AAOx3, no distress CVS: S1-S2, RRR, no murmur Lungs: B/L CTA, no wheezing Abdomen: soft, no distention, no tenderness, positive bowel sounds Extremity: no leg edema or induration Time spent more than 35 minutes Patient Condition at Discharge: Fair Plan - Discharge Summary Discharge Rx Participant: No New Discharge Prescriptions: New Hydrocortisone [Cortef] 10 mg PO BID 10 Days #20 tab Furosemide [Lasix] 20 mg PO BID@0900,1600 #60 tab Sodium Bicarbonate Tab 650 mg PO QID #60 tab Midodrine [ProAmatine] 5 mg PO AC-BID #60 tab Continue Gabapentin 300 mg PO QID ALPRAZolam [Xanax] 0.5 mg PO DAILY PRN PRN Reason: PANIC ATTACKS Melatonin 3 mg PO HS PRN PRN Reason: SLEEP Famotidine [Pepcid] 20 mg PO BID #60 tab Thiamine [Vitamin B-1] 100 mg PO AC-BID Multivitamins, Thera [Multivitamin (formulary)] 1 tab PO DAILY Discontinued Furosemide [Lasix] 40 mg PO DAILY Discharge Medication List Gabapentin 300 mg PO QID 10/24/20 [History] Thiamine [Vitamin B-1] 100 mg PO AC-BID 11/11/20 [History] Multivitamins, Thera [Multivitamin (formulary)] 1 tab PO DAILY 12/02/20 [History] ALPRAZolam [Xanax] 0.5 mg PO DAILY PRN 01/07/21 [History] Melatonin 3 mg PO HS PRN 02/03/21 [History] Famotidine [Pepcid] 20 mg PO BID #60 tab 02/09/21 [Rx] Furosemide [Lasix] 20 mg PO BID@0900,1600 #60 tab 02/09/21 [Rx] Hydrocortisone [Cortef] 10 mg PO BID 10 Days #20 tab 02/09/21 [Rx] Midodrine [ProAmatine] 5 mg PO AC-BID #60 tab 02/09/21 [Rx] Sodium Bicarbonate Tab 650 mg PO QID #60 tab 02/09/21 [Rx] Follow up Appointment(s)/Referral(s): Wilfredo Molina MD [REFERRING] - 10 Days (pcp needs to send referral over for patient to be seen) Rula Vargas MD [STAFF PHYSICIAN] - 02/23/21 2:00 pm Lorena cJ MD [STAFF PHYSICIAN] - 10 Days (You need a refferal from the [place] for this appointment then you can schedule .) Agapito Freitas DO [STAFF PHYSICIAN] - 03/03/21 2:20 pm [facility] [Primary Care Provider] - 02/15/21 2:00 pm Patient Instructions/Handouts: Hyponatremia (DC), Hyperkalemia (DC), Dyspnea (DC), Hypermagnesemia (DC) Activity/Diet/Wound Care/Special Instructions: low sodium diet activity is restricted till you see your doctor Discharge Disposition: HOME SELF-CARE
== END 2021-02-09 17:09 | disposition home or self-care (01) | DRG 641 ==
LOC: EC 14:06 → 5NMEDONC 19:06
PROVIDERS: ADMIT Internal Medicine; ATTEND Internal Medicine
PROC: 0W9G3ZZ Drainage of Peritoneal Cavity, Percutaneous Approach (ICD-10-PCS; principal; 2021-02-04)
PROC: 0W9G3ZZ Drainage of Peritoneal Cavity, Percutaneous Approach (ICD-10-PCS; 2021-02-09)
DX: E87.5 Hyperkalemia (principal); K76.6 Portal hypertension; N17.9 Acute kidney failure, unspecified; E27.40 Unspecified adrenocortical insufficiency; I85.10 Secondary esophageal varices without bleeding; K70.31 Alcoholic cirrhosis of liver with ascites; E87.1 Hypo-osmolality and hyponatremia; E87.2 Acidosis; E86.0 Dehydration; F31.9 Bipolar disorder, unspecified; F41.0 Panic disorder [episodic paroxysmal anxiety]; I10 Essential (primary) hypertension; G40.909 Epilepsy, unspecified, not intractable, without status epilepticus; K31.89 Other diseases of stomach and duodenum; F43.10 Post-traumatic stress disorder, unspecified; E83.41 Hypermagnesemia; E78.5 Hyperlipidemia, unspecified; F17.200 Nicotine dependence, unspecified, uncomplicated; Z82.49 Family history of ischemic heart disease and other diseases of the circulatory system; Z83.3 Family history of diabetes mellitus; Z79.899 Other long term (current) drug therapy; I95.9 Hypotension, unspecified
CPT/HCPCS: 36415; 49083; 76705; 80048; 80053; 80076; 82533; 82565; 83735; 84295; 84443; 85025; 85049; 85610; 93005; 94644; 96365; 96375; 99285

== ENCOUNTER 2021-02-17 12:11 | Day surgery (SDC) | payer OTHER ==
[2021-02-17 12:23] VITALS: RESP 16; TEMP 98.1
[2021-02-17 12:40] LABS: Mean Platelet Volume 7.3; Platelet Count 188 k/uL (150-450)
[2021-02-17 12:47] LABS: Prothrombin Time 10.3 sec (9.0-12.0)
[2021-02-17] MEDS: ALBUMIN HUMAN 25% 50 ML in EMPTY BAG 1 BAG IVPB SCH ×4 (14:00→14:43)
[2021-02-17 15:14] VITALS: BP 83/47; PULSE 85
--- NOTE | 2021-02-17 16:00 | US ---
EXAMINATION TYPE: US paracentesis abd w/image DATE OF EXAM: 02/17/2021 COMPARISON: NONE HISTORY: Ascites. PROCEDURE: Maximal barrier technique was utilized. The skin overlying a suitable pocket of fluid was localized with ultrasound and the overlying skin was prepped and draped. Ultrasound was utilized with sterile technique. Lidocaine was used for local anesthesia and a skin colleen made with a scalpel. Catheter was advanced under direct ultrasound guidance into a suitable pocket of fluid and approximately 6.6 liter s of serous fluid were removed. Catheter was withdrawn and hemostasis achieved. There is no immedia te complication; the patient is discharged in stable condition. IMPRESSION: STATUS POST ULTRASOUND GUIDED PARACENTESIS FOR PALLIATION OF ASCITES. THIS PROCEDURE WA S PERFORMED BY THE UNDERSIGNED.
== END 2021-02-17 15:25 | disposition home or self-care (01) ==
LOC: RADPROMAIN 12:11
PROVIDERS: ATTEND Internal Medicine Gastroenterology
DX: R18.8 Other ascites (principal)
CPT/HCPCS: 82565; 85049; 85610; 36415; 49083; P9047

== ENCOUNTER 2021-02-24 12:27 | Day surgery (SDC) | payer OTHER ==
[2021-02-24 13:03] LABS: Mean Platelet Volume 7.1; Platelet Count 215 k/uL (150-450)
[2021-02-24 13:12] LABS: Prothrombin Time 10.5 sec (9.0-12.0)
[2021-02-24] MEDS: ALBUMIN HUMAN 25% 50 ML in EMPTY BAG 1 BAG IVPB SCH ×6 (13:16→14:59)
[2021-02-24 13:23] VITALS: TEMP 98.2
[2021-02-24 15:07] VITALS: RESP 16
[2021-02-24 15:45] VITALS: BP 89/55; PULSE 77
--- NOTE | 2021-02-24 15:54 | US ---
Ultrasound-guided paracentesis. DATE OF EXAM: 02/24/2021 CLINICAL HISTORY: Ascites The procedure was discussed with the patient. The risks, complications, benefits, and alternatives we re discussed and any questions were answered. Informed consent was obtained. The patient was placed s upine on the ultrasound table and prepped and draped in the usual sterile fashion. All elements of maximal barrier technique were utilized. Under ultrasound guidance, access into the right lower quadrant was obtained, via the paracentesis catheter system and direct ultrasound guidanc e. Approximately 11 liters of straw-colored fluid was removed. The patient was stable throughout the pro cedure and remained stable upon discharge from Department of Radiology. IMPRESSION: Successful paracentesis under ultrasound guidance.
== END 2021-02-24 16:25 | disposition home or self-care (01) ==
LOC: RADPROMAIN 12:27
PROVIDERS: ATTEND Internal Medicine Gastroenterology
DX: K70.31 Alcoholic cirrhosis of liver with ascites (principal)
CPT/HCPCS: 82565; 84520; 85049; 85610; 36415; 49083; P9047

== ENCOUNTER 2021-03-03 12:32 | Day surgery (SDC) | payer OTHER ==
[2021-03-03 13:03] LABS: Mean Platelet Volume 7.5; Platelet Count 178 k/uL (150-450)
[2021-03-03] MEDS: ALBUMIN HUMAN 25% 50 ML in EMPTY BAG 1 BAG IVPB SCH ×6 (13:04→15:25)
[2021-03-03 13:11] LABS: Prothrombin Time 10.4 sec (9.0-12.0)
[2021-03-03 13:14] VITALS: RESP 16; TEMP 98
[2021-03-03 15:23] VITALS: BP 88/52; PULSE 81
--- NOTE | 2021-03-03 15:41 | US ---
EXAMINATION TYPE: US paracentesis abd w/image DATE OF EXAM: 03/03/2021 COMPARISON: NONE HISTORY: Ascites. PROCEDURE: Maximal barrier technique was utilized. The skin overlying a suitable pocket of fluid was localized with ultrasound and the overlying skin was prepped and draped. Ultrasound was utilized with sterile technique. Lidocaine was used for local anesthesia and a skin colleen made with a scalpel. Catheter was advanced under direct ultrasound guidance into a suitable pocket of fluid and approximately 6.8 liter s of serous fluid were removed. Catheter was withdrawn and hemostasis achieved. There is no immedia te complication; the patient is discharged in stable condition. IMPRESSION: STATUS POST ULTRASOUND GUIDED PARACENTESIS FOR PALLIATION OF ASCITES. THIS PROCEDURE WA S PERFORMED BY THE UNDERSIGNED.
== END 2021-03-03 15:49 | disposition home or self-care (01) ==
LOC: RADPROMAIN 12:32
PROVIDERS: ATTEND Internal Medicine Gastroenterology
DX: R18.8 Other ascites (principal)
CPT/HCPCS: 49083; 80051; 82565; 84520; 85049; 85610; 36415; P9047

== ENCOUNTER 2021-03-10 13:07 | Day surgery (SDC) | payer OTHER ==
[2021-03-10 13:14] VITALS: TEMP 97.6
[2021-03-10] MEDS ORDERED: ALBUMIN HUMAN 25% 50 ML in EMPTY BAG 1 BAG IVPB STA (13:22)
[2021-03-10 13:35] LABS: Mean Platelet Volume 7.2; Platelet Count 163 k/uL (150-450)
[2021-03-10] MEDS: ALBUMIN HUMAN 25% 50 ML in EMPTY BAG 1 BAG IVPB SCH ×6 (13:40→15:31)
[2021-03-10] MEDS ORDERED: ALBUMIN HUMAN 25% 50 ML in EMPTY BAG 1 BAG IVPB SCH (13:45)
[2021-03-10 13:59] LABS: INR 0.9 (<1.2); Prothrombin Time 9.6 sec (9.0-12.0)
[2021-03-10 15:32] VITALS: RESP 18
[2021-03-10 15:45] VITALS: BP 92/65; PULSE 82
--- NOTE | 2021-03-11 06:59 | US ---
Ultrasound-guided paracentesis. DATE OF EXAM: 03/10/2021 CLINICAL HISTORY: Ascites The procedure was discussed with the patient. The risks, complications, benefits, and alternatives we re discussed and any questions were answered. Informed consent was obtained. The patient was placed s upine on the ultrasound table and prepped and draped in the usual sterile fashion. All elements of maximal barrier technique were utilized. Under ultrasound guidance, access into the right lower quadrant was obtained, via the paracentesis catheter system and direct ultrasound guidanc e. Approximately 11.4 liters of straw-colored fluid was removed. The patient was stable throughout the p rocedure and remained stable upon discharge from Department of Radiology. IMPRESSION: Successful paracentesis under ultrasound guidance.
== END 2021-03-10 15:56 | disposition home or self-care (01) ==
LOC: RADPROMAIN 13:07
PROVIDERS: ATTEND Internal Medicine Gastroenterology
DX: K70.31 Alcoholic cirrhosis of liver with ascites (principal); Z88.6 Allergy status to analgesic agent; Z88.8 Allergy status to other drugs, medicaments and biological substances
CPT/HCPCS: 82565; 84520; 85049; 85610; 36415; 49083; P9047

== ENCOUNTER 2021-03-17 12:18 | Day surgery (SDC) | payer OTHER ==
[2021-03-17 12:51] VITALS: RESP 18
[2021-03-17 12:51] LABS: Platelet Count 175 k/uL (150-450)
[2021-03-17] MEDS: ALBUMIN HUMAN 25% 50 ML in EMPTY BAG 1 BAG IVPB SCH ×6 (13:00→15:05)
[2021-03-17 13:11] LABS: INR 0.9 (<1.2); Prothrombin Time 9.7 sec (9.0-12.0)
[2021-03-17 15:36] VITALS: BP 95/57; PULSE 86
--- NOTE | 2021-03-18 09:30 | US ---
EXAMINATION TYPE: US paracentesis abd w/image DATE OF EXAM: 03/17/2021 COMPARISON: NONE HISTORY: Ascites. PROCEDURE: Maximal barrier technique was utilized. The skin overlying a suitable pocket of fluid was localized with ultrasound and the overlying skin was prepped and draped. Ultrasound was utilized with sterile technique. Lidocaine was used for local anesthesia and a skin colleen made with a scalpel. Catheter was advanced under direct ultrasound guidance into a suitable pocket of fluid and approximately 9.4 liter s of serous fluid were removed. Catheter was withdrawn and hemostasis achieved. There is no immedia te complication; the patient is discharged in stable condition. IMPRESSION: STATUS POST ULTRASOUND GUIDED PARACENTESIS FOR PALLIATION OF ASCITES. THIS PROCEDURE WA S PERFORMED BY THE UNDERSIGNED.
== END 2021-03-17 15:40 | disposition home or self-care (01) ==
LOC: RADPROMAIN 12:18
PROVIDERS: ATTEND Internal Medicine Gastroenterology
DX: K70.31 Alcoholic cirrhosis of liver with ascites (principal)
CPT/HCPCS: 82565; 85049; 85610; 36415; 49083; P9047

== ENCOUNTER 2021-03-24 12:17 | Day surgery (SDC) | payer OTHER ==
[2021-03-24 12:35] VITALS: RESP 16; TEMP 97.4
[2021-03-24] MEDS: ALBUMIN HUMAN 25% 50 ML in EMPTY BAG 1 BAG IVPB SCH ×6 (12:53→14:50)
[2021-03-24 13:08] LABS: Mean Platelet Volume 7.4; Platelet Count 181 k/uL (150-450)
[2021-03-24 13:27] LABS: INR 0.9 (<1.2); Prothrombin Time 9.8 sec (9.0-12.0)
[2021-03-24 15:30] VITALS: BP 90/59; PULSE 90
--- NOTE | 2021-03-24 15:45 | US ---
EXAMINATION TYPE: US paracentesis abd w/image DATE OF EXAM: 03/24/2021 COMPARISON: NONE HISTORY: Ascites. PROCEDURE: Maximal barrier technique was utilized. The skin overlying a suitable pocket of fluid was localized with ultrasound and the overlying skin was prepped and draped. Ultrasound was utilized with sterile technique. Lidocaine was used for local anesthesia and a skin colleen made with a scalpel. Catheter was advanced under direct ultrasound guidance into a suitable pocket of fluid and approximately 7.4 liter s of serous fluid were removed. Catheter was withdrawn and hemostasis achieved. There is no immedia te complication; the patient is discharged in stable condition. IMPRESSION: STATUS POST ULTRASOUND GUIDED PARACENTESIS FOR PALLIATION OF ASCITES. THIS PROCEDURE WA S PERFORMED BY THE UNDERSIGNED.
== END 2021-03-24 15:55 | disposition home or self-care (01) ==
LOC: RADPROMAIN 12:17
PROVIDERS: ATTEND Internal Medicine Gastroenterology
DX: K70.31 Alcoholic cirrhosis of liver with ascites (principal)
CPT/HCPCS: 82565; 84520; 85049; 85610; 36415; 49083; P9047

== ENCOUNTER 2021-03-31 08:57 | Day surgery (SDC) | payer OTHER ==
[2021-03-31] MEDS: ALBUMIN HUMAN 25% 50 ML in EMPTY BAG 1 BAG IVPB SCH ×6 (09:34→11:15)
[2021-03-31 09:44] LABS: Mean Platelet Volume 7.2; Platelet Count 153 k/uL (150-450)
[2021-03-31 09:51] VITALS: TEMP 98.1
[2021-03-31 09:59] LABS: Prothrombin Time 10.4 sec (9.0-12.0)
[2021-03-31 11:36] VITALS: RESP 16
[2021-03-31 12:02] VITALS: BP 86/55; PULSE 81
--- NOTE | 2021-03-31 12:42 | US ---
EXAMINATION TYPE: US paracentesis abd w/image DATE OF EXAM: 03/31/2021 COMPARISON: NONE HISTORY: Ascites. PROCEDURE: Maximal barrier technique was utilized. The skin overlying a suitable pocket of fluid was localized with ultrasound and the overlying skin was prepped and draped. Ultrasound was utilized with sterile technique. Lidocaine was used for local anesthesia and a skin colleen made with a scalpel. Catheter was advanced under direct ultrasound guidance into a suitable pocket of fluid and approximately 7.7 liter s of serous fluid were removed. Catheter was withdrawn and hemostasis achieved. There is no immedia te complication; the patient is discharged in stable condition. IMPRESSION: STATUS POST ULTRASOUND GUIDED PARACENTESIS FOR PALLIATION OF ASCITES. THIS PROCEDURE WA S PERFORMED BY THE UNDERSIGNED.
== END 2021-03-31 12:01 | disposition home or self-care (01) ==
LOC: RADPROMAIN 08:57
PROVIDERS: ATTEND Internal Medicine Gastroenterology
DX: K70.31 Alcoholic cirrhosis of liver with ascites (principal)
CPT/HCPCS: 82565; 84520; 85049; 85610; 36415; 49083; P9047

== ENCOUNTER 2021-04-05 17:51 | Inpatient (IN) | payer OTHER ==
[2021-04-05] MEDS ORDERED: SODIUM CHLORIDE 0.9% 500 ML 500 ML IV STA (17:55)
--- NOTE | 2021-04-05 18:02 | ED ---
General Adult HPI - General Stated complaint: Altered Time Seen by Provider: 04/05/21 17:51 Source: patient, RN notes reviewed, old records reviewed - History of Present Illness Initial comments: Is a 45-year-old male who presents to the emergency department after he had a fall in bathroom. Patient has a past medical history significant for cirrhosis and extensive PTSD. Patient fell in the bathroom he states he did not lose consciousness. Patient states he hit the floor. He does complain of a headache does complain of neck pain and face pain particular around the nose. Patient states he crawled out of the bathroom and he hurt his left knee. Patient denies any drug use or alcohol use. Patient denies any chest pain difficulty breathing shortness of breath per patient denies any back pain. Patient denies any numbn ess or weakness. Patient was combative for EMS and at one point he stopped responding to sternal rub brought him right back to his baseline. According to EMS he was alert and oriented [address] Patient is very upset that he is here and he wants to leave immediately. Patient is a poor historian because of his agitation and the fact he doesn't answer questions. - Related Data Home Medications Medication Instructions Recorded Confirmed Gabapentin 300 mg PO QID 10/24/20 04/05/21 Thiamine [Vitamin B-1] 100 mg PO AC-BID 11/11/20 04/05/21 Multivitamins, Thera [Multivitamin 1 tab PO DAILY 12/02/20 04/05/21 (formulary)] ALPRAZolam [Xanax] 0.5 mg PO DAILY PRN 01/07/21 04/05/21 Furosemide [Lasix] 40 mg PO DAILY 04/05/21 04/05/21 Melatonin 3 mg PO HS PRN 04/05/21 04/05/21 Midodrine HCl [ProAmatine] 10 mg PO TID 04/05/21 04/05/21 Propranolol [Inderal] 10 mg PO TID 04/05/21 04/05/21 hydrOXYzine pamoate [Vistaril] 25 mg PO HS 04/05/21 04/05/21 Previous Rx's Medication Instructions Recorded Famotidine [Pepcid] 20 mg PO BID #60 tab 02/09/21 Sodium Bicarbonate Tab 650 mg PO QID #60 tab 02/09/21 Allergies Allergy/AdvReac Type Severity Reaction Status Date / Time acetaminophen [From Tylenol] Allergy Unknown Verified 04/05/21 18:38 aripiprazole [From Abilify] AdvReac Unknown Verified 04/05/21 18:38 mirtazapine AdvReac Unknown Verified 04/05/21 18:38 Review of Systems ROS Statement: Those systems with pertinent positive or pertinent negative responses have been documented in the HPI. ROS Other: All systems not noted in ROS Statement are negative. Past Medical History Past Medical History: Hyperlipidemia, Hypertension, Liver Disease, Seizure Disorder, Syncope Additional Past Medical History / Comment(s): hx of ETOH ABUSE-, cirrhosis History of Any Multi-Drug Resistant Organisms: None Reported Past Surgical History: No Surgical Hx Reported Additional Past Surgical History / Comment(s): paracentesis Past Anesthesia/Blood Transfusion Reactions: No Reported Reaction Past Psychological History: Anxiety, Bipolar, Depression, Panic Disorder, PTSD Additional Psychological History / Comment(s): panic attacks. Smoking Status: Current every day smoker Past Alcohol Use History: Abuse, Heavy Additional Past Alcohol Use History / Comment(s): a fifth a day, quit 4 month ago Past Drug Use History: None Reported - Past Family History Mother Family Medical History: Diabetes Mellitus, Hypertension Father History Unknown: Yes Family Medical History: Hypertension Additional Family Medical History / Comment(s): alcoholism General Exam - General Exam Comments Initial Comments: GENERAL: Patient is well-developed and well-nourished. Patient is nontoxic and well- hydrated and is in mild distress. ENT: Neck is soft and supple. No significant lymphadenopathy is noted. Oropharynx is clear. Moist mucous membranes. Neck has full range of motion without eliciting any pain. EYES: The sclera were anicteric and conjunctiva were pink and moist. Extraocular mov ements were intact and pupils were equal round and reactive to light. Eyelids were unremarkable. PULMONARY: Unlabored respirations. Good breath sounds bilaterally. No audible rales rhonchi or wheezing was noted. CARDIOVASCULAR: There is a regular rate and rhythm without any murmurs gallops or rubs. ABDOMEN: Soft and nontender with normal bowel sounds. SKIN: Contusion to his forehead and an abrasion to his left knee. Patient also has an abrasion to the bridge of his nose. NEUROLOGIC: Patient is alert and oriented x3. Cranial nerves II through XII are grossly intact. Motor and sensory are also intact. Normal speech, volume and content. Symmetrical smile. MUSCULOSKELETAL: Normal extremities with adequate strength and full range of motion. Patient has full range of motion of his left knee. Patient has tenderness at the bridge of his nose. Patient has a slight hematoma to forehead LYMPHATICS: No significant lymphadenopathy is noted PSYCHIATRIC: Patient is very agitated and he occasionally ago is babbling about things that are not pertinent to his current situation however when you ask him directly questions he is able to answer accurately. Course Vital Signs 04/05/21 17:59 Temperature 98.2 F Pulse Rate 75 Respiratory 18 Rate Blood Pressure 100/78 O2 Sat by Pulse 98 Oximetry Medical Decision Making - Medical Decision Making EKG shows normal sinus rhythm at 76 bpm SD interval is 136 QRS is 82 QT interval 408 QTC is 459. Patient's EKG shows no ST segment elevation or depression. Family showed up about an hour and a half after I initially saw the patient they indicated to me that the patient hurt his hand on a hand rail coming down the stairs earlier today and that he was extremely agitated and acting abnormally this morning prior to the fall. They state normally fairly sedate and never acts out like he is today. Patient is very combative and keeps talking about dying or killing himself. Family states this is completely atypical CT of the brain shows no acute abnormality. CT of the C-spine shows no acute abnormality. CT of the facial bones shows a nasal bone fracture as well as a maxillary fracture. Patient has some septum deviation in the nose. X-ray of the hand shows no acute abnormality. Chest x-ray shows no acute abnormality. Pelvis x-ray shows no acute abnormality. Patient continues to be very agitated and yelling out that he is going to kill himself or that he wants to be . I spoke with Dr. Gomez admitted to Dr. Pardo I consulted medicine and psychiatry. - Lab Data Result diagrams: 04/05/21 18:08 04/05/21 18:08 Lab Results 04/05/21 04/05/21 04/05/21 Range/Units 18:08 18:08 18:08 WBC 7.2 (3.8-10.6) k/uL RBC 3.68 L (4.30-5.90) m/uL Hgb 12.3 L (13.0-17.5) gm/dL Hct 36.2 L (39.0-53.0) % MCV 98.3 (80.0-100.0) fL MCH 33.5 (25.0-35.0) pg MCHC 34.0 (31.0-37.0) g/dL RDW 14.6 (11.5-15.5) % Plt Count 205 (150-450) k/uL MPV 7.2 Neutrophils % 62 % Lymphocytes % 22 % Monocytes % 6 % Eosinophils % 7 % Basophils % 1 % Neutrophils # 4.5 (1.3-7.7) k/uL Lymphocytes # 1.6 (1.0-4.8) k/uL Monocytes # 0.4 (0-1.0) k/uL Eosinophils # 0.5 (0-0.7) k/uL Basophils # 0.1 (0-0.2) k/uL PT 9.7 (9.0-12.0) sec INR 0.9 (<1.2) APTT 22.9 (22.0-30.0) sec Sodium 131 L (137-145) mmol/L Potassium 4.6 (3.5-5.1) mmol/L Chloride 102 (98-107) mmol/L Carbon Dioxide 20 L (22-30) mmol/L Anion Gap 9 mmol/L BUN 33 H (9-20) mg/dL Creatinine 1.76 H (0.66-1.25) mg/dL Est GFR (CKD-EPI)AfAm 52 (>60 ml/min/1.73 sqM) Est GFR (CKD-EPI)NonAf 45 (>60 ml/min/1.73 sqM) Glucose 95 (74-99) mg/dL Calcium 9.1 (8.4-10.2) mg/dL Total Bilirubin 0.7 (0.2-1.3) mg/dL AST 37 (17-59) U/L ALT 11 (4-49) U/L Alkaline Phosphatase 76 (38-126) U/L Troponin I (0.000-0.034) ng/mL Total Protein 6.1 L (6.3-8.2) g/dL Albumin 3.6 (3.5-5.0) g/dL Serum Alcohol <10 mg/dL Blood Type Blood Type Confirm Blood Type Recheck Bld Type Recheck Status Antibody Screen Spec Expiration Date 04/05/21 04/05/21 04/05/21 Range/Units 18:08 18:08 18:18 WBC (3.8-10.6) k/uL RBC (4.30-5.90) m/uL Hgb (13.0-17.5) gm/dL Hct (39.0-53.0) % MCV (80.0-100.0) fL MCH (25.0-35.0) pg MCHC (31.0-37.0) g/dL RDW (11.5-15.5) % Plt Count (150-450) k/uL MPV Neutrophils % % Lymphocytes % % Monocytes % % Eosinophils % % Basophils % % Neutrophils # (1.3-7.7) k/uL Lymphocytes # (1.0-4.8) k/uL Monocytes # (0-1.0) k/uL Eosinophils # (0-0.7) k/uL Basophils # (0-0.2) k/uL PT (9.0-12.0) sec INR (<1.2) APTT (22.0-30.0) sec Sodium (137-145) mmol/L Potassium (3.5-5.1) mmol/L Chloride (98-107) mmol/L Carbon Dioxide (22-30) mmol/L Anion Gap mmol/L BUN (9-20) mg/dL Creatinine (0.66-1.25) mg/dL Est GFR (CKD-EPI)AfAm (>60 ml/min/1.73 sqM) Est GFR (CKD-EPI)NonAf (>60 ml/min/1.73 sqM) Glucose (74-99) mg/dL Calcium (8.4-10.2) mg/dL Total Bilirubin (0.2-1.3) mg/dL AST (17-59) U/L ALT (4-49) U/L Alkaline Phosphatase (38-126) U/L Troponin I <0.012 (0.000-0.034) ng/mL Total Protein (6.3-8.2) g/dL Albumin (3.5-5.0) g/dL Serum Alcohol mg/dL Blood Type A Positive Blood Type Confirm A Positive Blood Type Recheck No Previous Record Bld Type Recheck Status CABO Indicated Antibody Screen NEGATIVE Spec Expiration Date 04/08/20212307 Critical Care Time Critical Care Time: Yes Total Critical Care Time: 35 Disposition Clinical Impression: Acute psychosis, Head contusion, Nasal bone fracture, Maxillary fracture, Fall Disposition: ADMITTED IP TO THIS HOSP Referrals: Liliane Khanna MD [REFERRING] - 1-2 days Time of Disposition: 20:41
--- NOTE | 2021-04-05 18:30 | XR ---
EXAMINATION TYPE: XR chest 1V portable DATE OF EXAM: 04/05/2021 COMPARISON: 01/04/2021 INDICATION: Trauma, fall TECHNIQUE: Single frontal view of the chest is obtained. FINDINGS: The heart size is normal. The pulmonary vasculature is normal. No pneumothorax is evident. No displaced rib fractures are evid ent. Suspected granuloma within the right lung base appears stable. There may be some increasing atelectas is at the left lung base. IMPRESSION: 1. Mild increase in left basilar atelectasis
--- NOTE | 2021-04-05 18:31 | XR ---
EXAMINATION TYPE: XR pelvis AP view DATE OF EXAM: 04/05/2021 COMPARISON: None HISTORY: Trauma, pain TECHNIQUE: Single AP pelvis FINDINGS: No acute fractures or dislocations are evident. Femoral heads articulate with the acetabulu m. Symphysis pubis and sacroiliac joints are normal. Nonspecific bowel gas is present. IMPRESSION: 1. Normal AP pelvis
[2021-04-05 18:36] LABS: Basophils # (A) 0.1 k/uL (0-0.2); Basophils % (A) 1 %; Eosinophils # (A) 0.5 k/uL (0-0.7); Eosinophils % (A) 7 %; HCT 36.2 % (39.0-53.0); HGB 12.3 gm/dL (13.0-17.5); Lymphocytes # (A) 1.6 k/uL (1.0-4.8); Lymphocytes % (A) 22 %; MCH 33.5 pg (25.0-35.0); MCV 98.3 fL (80.0-100.0); Mean Platelet Volume 7.2; Monocytes # (A) 0.4 k/uL (0-1.0); Monocytes % (A) 6 %; Neutrophils # (A) 4.5 k/uL (1.3-7.7); Neutrophils % (A) 62 %; Platelet Count 205 k/uL (150-450); RBC 3.68 m/uL (4.30-5.90); RDW 14.6 % (11.5-15.5); WBC 7.2 k/uL (3.8-10.6)
[2021-04-05 18:48] LABS: ALT 11 U/L (4-49); AST 37 U/L (17-59); African American GFR (CKD) 52 (>60 ml/min/1.73 sqM); Albumin 3.6 g/dL (3.5-5.0); Alcohol <10 mg/dL; Alkaline Phosphatase 76 U/L (38-126); Anion Gap 9 mmol/L; Blood Urea Nitrogen 33 mg/dL (9-20); Calcium 9.1 mg/dL (8.4-10.2); Carbon Dioxide 20 mmol/L (22-30); Chloride 102 mmol/L (98-107); Glucose 95 mg/dL (74-99); Non-African American GFR(CKD) 45 (>60 ml/min/1.73 sqM); Potassium 4.6 mmol/L (3.5-5.1); Sodium 131 mmol/L (137-145); Total Bilirubin 0.7 mg/dL (0.2-1.3); Total Protein 6.1 g/dL (6.3-8.2)
[2021-04-05 18:53] LABS: INR 0.9 (<1.2); Partial Thromboplastin Time 22.9 sec (22.0-30.0); Prothrombin Time 9.7 sec (9.0-12.0)
--- NOTE | 2021-04-05 18:58 | CT ---
EXAMINATION TYPE: CT brain juan m wo con DATE OF EXAM: 04/05/2021 COMPARISON: None HISTORY: Frontal and facial injury. CT DLP: 1050.5 mGycm, Automated exposure control for dose reduction was used. CONTRAST: Patient injected with 0 mL of Isovue 300. CT of the brain is performed utilizing 3 mm thick sections through the posterior fossa and 3 mm thick sections through the remaining calvarium. Study is performed within 24 hours of arrival to the hospital. No abnormal hyperdensity is present to suggest an acute intracranial hemorrhage. No mass lesion is evident. No acute infarcts are evident. Ventricles and sulci are appropriate for the patient age. There is mucosal thickening within the right maxillary sinus. Left septal deviation is noted. Soft ti ssue swelling is over the frontal region centrally IMPRESSIONS: 1. No acute intracranial process. 2. Soft tissue swelling frontal region. 3. Suspected CT cervical spine. COMPARISON: None CT of the cervical spine is performed in the axial plane at 2 mm thick sections. Reconstructed image s in the coronal, and sagittal plane are reviewed on the computer. No acute fractures are evident. Vertebral body alignment is normal. Mild disc space narrowing is present at C4-5 C5-6 and C6-7. Some endplate spurring is present C5-6 C6 -7 Vertebral body heights are preserved. No spinal canal stenosis is evident. Mild foraminal narrowing is present C5-6 due to uncovertebral joint hypertrophy IMPRESSIONS: 1. No acute osseous abnormality cervical spine.
--- NOTE | 2021-04-05 19:01 | CT ---
EXAMINATION TYPE: CT facial bones wo con DATE OF EXAM: 04/05/2021 COMPARISON: None HISTORY: Frontal and facial injury. CT DLP: 1050.5 mGycm Automated exposure control for dose reduction was used. Contrast: None Technique: Axial images 2 mm thick sections. Reconstructed images in the coronal and sagittal planes. FINDINGS: Nondisplaced fracture at the maxillary spine is present. There is left septal deviation. Nasal bone f ractures present. There is mild soft tissue swelling over the frontal region. No underlying fractures evident. Medial o rbital jenkins are intact. Mucosal thickening is seen in the right maxillary sinus. Ostiomeatal units a re patent. Orbital floors are intact. IMPRESSION: 1. FRACTURE OF THE MAXILLARY SPINE BASE OF THE NOSE. 2. FRACTURE AT THE BRIDGE OF THE NOSE. 3. LEFT SEPTAL DEVIATION. 4. MUCOUS RETENTION CYST OR MUCOSAL THICKENING WITHIN THE INFERIOR RIGHT MAXILLARY SINUS.
[2021-04-05] MEDS ORDERED: LORazepam 2 MG/ML INJ IV STA ×2 (19:17→22:52)
--- NOTE | 2021-04-05 20:10 | XR ---
EXAMINATION TYPE: XR hand complete LT DATE OF EXAM: 04/05/2021 COMPARISON: None HISTORY: Trauma, pain TECHNIQUE: Three-view left hand FINDINGS: No acute fracture or dislocation evident. Joint spaces are preserved. Soft tissues appear n ormal. Follow-up exam can be performed 7-10 days from acute trauma for continued pain. IMPRESSION: 1. Normal three-view left hand
[2021-04-05] MEDS ORDERED: ZIPRASIDONE 20 MG VIAL IM STA (20:34)
[2021-04-05] MEDS ORDERED: SODIUM CHLORIDE 0.9% 1,000 ML IV ONE (20:42)
[2021-04-05 20:48] LABS: Acetaminophen <10.0 ug/mL; Salicylate <1.0 mg/dL
[2021-04-05 22:46] LABS: Appearance,Urine Clear (Clear); Bilirubin,Urine Negative (Negative); Blood,Urine Negative (Negative); Color,Urine Light Yellow; Glucose,Urine (UA) Negative (Negative); Ketones,Urine Negative (Negative); Leukocyte Esterase,Urine Negative (Negative); Nitrite,Urine Negative (Negative); Protein,Urine Negative (Negative); Specific Gravity,Urine 1.006 (1.001-1.035); Urobilinogen,Urine <2.0 mg/dL (<2.0)
[2021-04-05] MEDS ORDERED: diphenhydrAMINE 50 MG/ML 1 ML VIAL IVP STA (22:53)
[2021-04-05 23:00] LABS: Amphetamine Screen,Urine Not Detected (NotDetected); Barbiturate Screen,Urine Not Detected (NotDetected); Benzodiazepines Screen,Urine Detected (NotDetected); Cocaine Screen,Urine Not Detected (NotDetected); Methadone Screen, Urine Not Detected (NotDetected); Opiate Screen,Urine Detected (NotDetected); Oxycodone Screen, Urine Not Detected (NotDetected); Phencyclidine Screen,Urine Not Detected (NotDetected); Tricyclic Antidepressant,Urine Not Detected (NotDetected); Urn Cannabinoid Scrn Detected (NotDetected)
--- NOTE | 2021-04-06 08:09 | P.GSHP ---
History of Present Illness H&P Date: 04/05/21 Chief Complaint: Fall in bathroom, possible concussion This is a 45-year-old male who. He fell in his bathroom. Patient apparently was confused and combative when EMS responded to him. The patient apparently was alert and oriented on the way to the hospital however he was quite confused before this. Patient is a poor historian and is not answering questions. First family has extensive posttraumatic stress disorder as well as a history for cirrhosis. Past Medical History Past Medical History: Hyperlipidemia, Hypertension, Liver Disease, Seizure Disorder, Syncope Additional Past Medical History / Comment(s): hx of ETOH ABUSE-, cirrhosis History of Any Multi-Drug Resistant Organisms: None Reported Past Surgical History: No Surgical Hx Reported Additional Past Surgical History / Comment(s): paracentesis Past Anesthesia/Blood Transfusion Reactions: No Reported Reaction Past Psychological History: Anxiety, Bipolar, Depression, Panic Disorder, PTSD Additional Psychological History / Comment(s): panic attacks. Smoking Status: Current every day smoker Past Alcohol Use History: Abuse, Heavy Additional Past Alcohol Use History / Comment(s): a fifth a day, quit 4 month ago Past Drug Use History: None Reported - Past Family History Mother Family Medical History: Diabetes Mellitus, Hypertension Father History Unknown: Yes Family Medical History: Hypertension Additional Family Medical History / Comment(s): alcoholism Medications and Allergies Home Medications Medication Instructions Recorded Confirmed Type Gabapentin 300 mg PO QID 10/24/20 04/05/21 History Thiamine [Vitamin B-1] 100 mg PO AC-BID 11/11/20 04/05/21 History Multivitamins, Thera [Multivitamin 1 tab PO DAILY 12/02/20 04/05/21 History (formulary)] ALPRAZolam [Xanax] 0.5 mg PO DAILY PRN 01/07/21 04/05/21 History Famotidine [Pepcid] 20 mg PO BID #60 tab 02/09/21 04/05/21 Rx Sodium Bicarbonate Tab 650 mg PO QID #60 tab 02/09/21 04/05/21 Rx Furosemide [Lasix] 40 mg PO DAILY 04/05/21 04/05/21 History Melatonin 3 mg PO HS PRN 04/05/21 04/05/21 History Midodrine HCl [ProAmatine] 10 mg PO TID 04/05/21 04/05/21 History Propranolol [Inderal] 10 mg PO TID 04/05/21 04/05/21 History hydrOXYzine pamoate [Vistaril] 25 mg PO HS 04/05/21 04/05/21 History Allergies Allergy/AdvReac Type Severity Reaction Status Date / Time acetaminophen [From Tylenol] Allergy Unknown Verified 04/05/21 18:38 aripiprazole [From Abilify] AdvReac Unknown Verified 04/05/21 18:38 mirtazapine AdvReac Unknown Verified 04/05/21 18:38 Surgical - Exam Vital Signs Temp Pulse Resp BP Pulse Ox 98.2 F 75 18 100/78 98 04/05/21 17:59 04/05/21 17:59 04/05/21 17:59 04/05/21 17:59 04/05/21 17:59 - General well developed, no distress - Eyes PERRL, normal ocular movement - Neck no masses - Respiratory normal expansion - Cardiovascular Rhythm: regular - Abdomen Abdomen: soft, non tender - Integumentary Abrasion on the forehead and left knee. And the bridge of nose.. - Neurologic normal coordination, normal sensation - Psychiatric The patient appears agitated. He states he wants to kill himself. He appears confused. Results - Labs 04/05/21 18:08 04/05/21 18:08 Abnormal Lab Results - Last 24 Hours (Table) 04/05/21 04/05/21 04/05/21 Range/Units 18:08 18:08 18:08 RBC 3.68 L (4.30-5.90) m/uL Hgb 12.3 L (13.0-17.5) gm/dL Hct 36.2 L (39.0-53.0) % Sodium 131 L (137-145) mmol/L Carbon Dioxide 20 L (22-30) mmol/L BUN 33 H (9-20) mg/dL Creatinine 1.76 H (0.66-1.25) mg/dL Total Protein 6.1 L (6.3-8.2) g/dL Urine Opiates Screen Detected H (NotDetected) U Benzodiazepines Scrn Detected H (NotDetected) U Marijuana (THC) Screen Detected H (NotDetected) Diabetes panel 04/05/21 Range/Units 18:08 Sodium 131 L (137-145) mmol/L Potassium 4.6 (3.5-5.1) mmol/L Chloride 102 (98-107) mmol/L Carbon Dioxide 20 L (22-30) mmol/L BUN 33 H (9-20) mg/dL Creatinine 1.76 H (0.66-1.25) mg/dL Glucose 95 (74-99) mg/dL Calcium 9.1 (8.4-10.2) mg/dL AST 37 (17-59) U/L ALT 11 (4-49) U/L Alkaline Phosphatase 76 (38-126) U/L Total Protein 6.1 L (6.3-8.2) g/dL Albumin 3.6 (3.5-5.0) g/dL Calcium panel 04/05/21 Range/Units 18:08 Calcium 9.1 (8.4-10.2) mg/dL Albumin 3.6 (3.5-5.0) g/dL Pituitary panel 04/05/21 Range/Units 18:08 Sodium 131 L (137-145) mmol/L Potassium 4.6 (3.5-5.1) mmol/L Chloride 102 (98-107) mmol/L Carbon Dioxide 20 L (22-30) mmol/L BUN 33 H (9-20) mg/dL Creatinine 1.76 H (0.66-1.25) mg/dL Glucose 95 (74-99) mg/dL Calcium 9.1 (8.4-10.2) mg/dL Adrenal panel 04/05/21 Range/Units 18:08 Sodium 131 L (137-145) mmol/L Potassium 4.6 (3.5-5.1) mmol/L Chloride 102 (98-107) mmol/L Carbon Dioxide 20 L (22-30) mmol/L BUN 33 H (9-20) mg/dL Creatinine 1.76 H (0.66-1.25) mg/dL Glucose 95 (74-99) mg/dL Calcium 9.1 (8.4-10.2) mg/dL Total Bilirubin 0.7 (0.2-1.3) mg/dL AST 37 (17-59) U/L ALT 11 (4-49) U/L Alkaline Phosphatase 76 (38-126) U/L Total Protein 6.1 L (6.3-8.2) g/dL Albumin 3.6 (3.5-5.0) g/dL - Imaging Additional studies: CT of the brain shows no abnormality. There is a fracture of nasal bones and maxillary hand x-ray, chest x-ray and pelvis x-ray are normal. Assessment and Plan Assessment: Patient will admitted to trauma trauma for initial evaluation. Psychiatry, medicine and neurology has been consult also.
[2021-04-06] MEDS ORDERED: SODIUM CHLORIDE 0.9% 1,000 ML IV ONE (08:10)
[2021-04-06] MEDS ORDERED: SODIUM CHLORIDE 0.9% 1,000 ML IV SCH (08:15)
[2021-04-06] MEDS: NICOTINE 7MG/24HR PATCH TRANSDERM SCH (10:45)
[2021-04-06] MEDS: MIDODRINE 5 MG TAB PO SCH ×3 (10:46→18:44)
[2021-04-06] MEDS ORDERED: OLANZapine 10 MG VIAL IM PRN (12:59)
[2021-04-06] MEDS ORDERED: OLANZapine 2.5 MG TAB PO PRN (12:59)
[2021-04-06] MEDS ORDERED: OLANZapine 5 MG TAB PO PRN (13:09)
--- NOTE | 2021-04-06 13:09 | P.CN ---
Psychiatric Consult - . Consult date: 04/06/21 Consult:: 04/06/21 12:05 IDENTIFYING DATA: This patient is a 45-year-old male who currently lives in a 2 bedroom house is single has 1 and is unemployed. REASON FOR REFERRAL: Psychiatry was consulted for suicidal ideations and psychosis. HISTORY OF PRESENT ILLNESS: The patient presented to the hospital yesterday after a supposedly fall in his bathroom. Patient reported that he did not lose consciousness. Patient was fairly agitated and combative with the EMS on transport. Patient apparently received 2 doses of Ativan and also Geodon injection for aggression and agitation. Patient was apparently having fluctuating mental status. His computed tomography scan of his brain was negative. His UDS was positive for opiates benzodiazepines and THC. Patient's blood alcohol levels negative. His sodium was 131 and creatinine is 1.76 on admission. Patient's nurse stated that patient was agitated and endorsing suicidal ideations and also telling her to harm him. Patient was seen at the bedside and was covering his face with blankets. Patient initially was fairly uncooperative with interview and appeared to be very depressed. He did not want to show his face and did have several wounds on his face when he did. He states that he doesn't want to "be around anymore" and claims that "everything I do it never turns out to be good". He claims that he always tries to do the right thing however is never successful. He is fairly negative and was catastrophizing. He did appear to be fairly irritable with the greeting card writer however was not impulsive. He rambled significantly and was illogical at times and had loose associations. He spoke about the hospital being his new home. He claims that he was having some suicidal thoughts however was fairly guarded about what he would do. He claims that he lives with "2 psychopaths" he has poor reality testing. He was complaining of auditory hallucinations however did not mention what they were saying. He claims that he has poor sleep. At this time patient denies any homical ideations, intent or plan. Patient denies any visual hallucinations and denies any paranoia or delusions. Patients admits to using alcohol previously however states that he quit 4 months ago. He states that he smokes cigarettes and uses marijuana. PAST PSYCHIATRIC HISTORY: Patient has a a history of PTSD and polysubstance abuse. He claims that he has been on several different medications in the past however cannot further name. He is currently on Xanax Vistaril and melatonin. Patient denies any previous psychiatric hospitalizations. Things that he is to follow-up with his psychiatrist at the [facility]. Patient denies any history of suicide attempts in the past. Past Medical History: Hyperlipidemia, Hypertension, Liver Disease, Seizure Disorder, Syncope Additional Past Medical History / Comment(s): hx of ETOH ABUSE-, cirrhosis ALLERGIES: as per EMR. CHEMICAL DEPENDENCY HISTORY: as per HPI. FAMILY PSYCHIATRIC/SUBSTANCE USE HISTORY: He states that there are "too many and my family to count" and spoke about significant psychosis and different people in his family. SOCIAL HISTORY: Patient was born and raised in [place] and moved to [place] with his mother. He states that he grew up mainly in [place]. He states that he completed high school and served in the [employer] for 2 years. He is currently unemployed lives in a 2 bedroom house is single and has 1 kid. He states that he did have a DUI in the past. MENTAL STATUS EXAM: General Appearance: Patient appears to be thin, disheveled, stated age is alert, uncooperative, evasive and bizarre. Patient appears to have poor hygiene and grooming wearing hospital gown with poor eye contact. Several wounds on his face Behavior: pt is agitated and irritable. Speech: Patient's speech is fluent and nonpressured. Mood/Affect: Patient reports their mood is "depressed", affect is congruent and irritable Suicidality/Homicidality: Patient denies having any homicidal ideation intent or plan. She was endorsing passive suicidal thoughts. Perceptions: Patient denies any visual hallucinations in admits to auditory hallucinations. Though content/process: Loose associations, bizarre, illogical at times. Memory and concentration: AOX3, grossly intact for the purposes of this session. Can spell "WORLD" backwards Judgment and insight: poor/impulsive IMPRESSIONS: Mood disorder unspecified PTSD Cannabis use disorder Alcohol use disorder, currently in remission Nicotine dependence PLAN: -At this time patient DOES meet criteria for inpatient psychiatric admission. -Would recommend the following medication changes/additions: Zyprexa 5 mg by mouth one dose now. 5 mg of Zyprexa daily at bedtime for mood stabilization/insomnia. Zoloft 50 mg daily for mood/anxiety. Added Zyprexa IM and by mouth prn options for agitation/aggression. -Continue 1:1 sitter for safety] until patient is safely transferred to the mental health unit. -Cannot leave AMA at this time. Patient will need a petition and certification if attempting to leave AMA. -When medically stable, patient is eligible for transfer to a psych bed when available. -Communicated plan to patient's nurse -Psychiatry will sign off at this time -Please contact with any questions. 04/06/21 13:00
[2021-04-06] MEDS ORDERED: OLANZapine 5 MG TAB PO ONE (13:15)
--- NOTE | 2021-04-06 13:22 | P.CNNES ---
History of Present Illness Consult date: 04/06/21 Requesting physician: Jae Moser Reason for Consult: Altered mental status History of Present Illness: Patient is a 45-year-old male with history of PTSD, hepatic cirrhosis came to the hospital by ambulance yesterday at 5:51 PM after he suffered from a fall. As per EMS flow sheet, when they arrived, patient was in his bathroom, moaning, and sitting on the toilet, family stated the patient fell and hurt his neck and face. Patient stated that he was unable to get up. No neurological deficits were noted by the assistant editor. Patient does have history of PTSD and closed head injury. Patient was combative with EMS. The c-collar was placed. Patient was placed in the stretcher, soft restraints were applied. The patient loses consciousness. Patient woke up after sternal rub. The patient wakes up. Patient's vitals in the scene was blood pressure 104/57, pulse rate 74, respiration 18, saturation 100%. Patient's blood test shows normal WBC hemoglobin 12.3 platelets are 205. PT/PTT normal. Sodium 131 potassium 4.6. BUN 33, creatinine 1.76. Hepatic panel is normal, troponin negative, UA negative. Urine drug screen positive for opiates, benzodiazepine and marijuana. Meadows virus PCR negative. Blood alcohol level negative. Patient's last ammonia level was <9 on 11/29/2020. TSH normal. Cortisol normal. Chest x-ray showed mild increase in the left basilar atelectasis. Pelvic x-ray was normal. CT head showed no acute intracranial process. Soft tissue swelling frontal region. CT of the cervical spine negative. Mild disc space narrowing and neural foraminal narrowing noted at multiple levels. CT of the facial bones shows fracture of the maxillary spine base of the nose. Fracture at the bridge of the nose. Left septal deviation. X-ray of the hand is normal. EKG with normal sinus rhythm, low voltage QRS. Patient tells me that he always comes to the hospital. He admits that "I fell". He states it could be from multiple possibilities including bad coordination, loss of equilibrium, may be stubbed on his toes. He starts rambling, starts talking with pressured speech. Sometimes speaks out of context. The sitter who was present states the patient has been very angry, but patient became more angry when he heard this. He would often use foul language with "F" word. Patient states that he has smoked around 1-2 pack per day for 25 years. However sometimes he vapes, then does not drink as much. Denies any history of alcoholism. He smokes marijuana once in a while, which calms him down. Patient states that he lives with his dad and his step-mom. Patient informs me that he had history of 2 seizures in the past. The first one was about 6 or 7 years ago and the second one was about 3 or 4 years ago. He states that it happened because he "quit drinking". Review of Systems As above in detail. Patient states his pain is "F-up" when I asked about review of systems. Complains of back pain. Denies any double vision, loss of vision, no hoarseness, sore throat, dysphagia. No chest pain, abdominal pain, nausea vomiting diarrhea. No double vision. No fever or chills. Past Medical History Past Medical History: Hyperlipidemia, Hypertension, Liver Disease, Seizure Disorder, Syncope Additional Past Medical History / Comment(s): hx of ETOH ABUSE-, cirrhosis History of Any Multi-Drug Resistant Organisms: None Reported Past Surgical History: No Surgical Hx Reported Additional Past Surgical History / Comment(s): paracentesis Past Anesthesia/Blood Transfusion Reactions: No Reported Reaction Past Psychological History: Anxiety, Bipolar, Depression, Panic Disorder, PTSD Additional Psychological History / Comment(s): panic attacks. Smoking Status: Current every day smoker Past Alcohol Use History: Abuse, Heavy Additional Past Alcohol Use History / Comment(s): a fifth a day, quit 4 month ago Past Drug Use History: None Reported - Past Family History Mother Family Medical History: Diabetes Mellitus, Hypertension Father History Unknown: Yes Family Medical History: Hypertension Additional Family Medical History / Comment(s): alcoholism Medications and Allergies Home Medications Medication Instructions Recorded Confirmed Type Gabapentin 300 mg PO QID 10/24/20 04/05/21 History Thiamine [Vitamin B-1] 100 mg PO AC-BID 11/11/20 04/05/21 History Multivitamins, Thera [Multivitamin 1 tab PO DAILY 12/02/20 04/05/21 History (formulary)] ALPRAZolam [Xanax] 0.5 mg PO DAILY PRN 01/07/21 04/05/21 History Famotidine [Pepcid] 20 mg PO BID #60 tab 02/09/21 04/05/21 Rx Sodium Bicarbonate Tab 650 mg PO QID #60 tab 02/09/21 04/05/21 Rx Furosemide [Lasix] 40 mg PO DAILY 04/05/21 04/05/21 History Melatonin 3 mg PO HS PRN 04/05/21 04/05/21 History Midodrine HCl [ProAmatine] 10 mg PO TID 04/05/21 04/05/21 History Propranolol [Inderal] 10 mg PO TID 04/05/21 04/05/21 History hydrOXYzine pamoate [Vistaril] 25 mg PO HS 04/05/21 04/05/21 History Allergies Allergy/AdvReac Type Severity Reaction Status Date / Time acetaminophen [From Tylenol] Allergy Unknown Verified 04/05/21 18:38 aripiprazole [From Abilify] AdvReac Unknown Verified 04/05/21 18:38 mirtazapine AdvReac Unknown Verified 04/05/21 18:38 Physical Examination - Vital Signs Vital Signs: Vital Signs Temp Pulse Resp BP Pulse Ox 04/06/21 07:47 98.0 F 83 H 76/44 95 04/06/21 05:49 62 20 94/66 95 04/06/21 05:37 61 20 82/50 97 04/06/21 01:00 78 20 96/60 96 04/05/21 23:02 74 20 98/64 96 04/05/21 20:47 78 20 94/64 96 04/05/21 17:59 98.2 F 75 18 100/78 98 Intake and Output 04/05/21 04/06/21 04/06/21 22:59 06:59 14:59 Other: Weight 73.936 kg Patient is a middle aged male, in no acute distress. Patient is alert and awake. He states it is the month of April and the year is 2020. He states it is the first of the month but then change it to 3. He knows is in [facility] in [place] and knows name of the current president. Patient is alert awake oriented to time place and person. Speech and language functions are normal. Attention, concentration and fund of knowledge is adequate. Patient does ramble, goes off danger and at times. He appears to have some pressured speech. On cranial examination, pupils are round and reacting to light, visual mays are full on confrontation, extraocular muscles are intact with no nystagmus. Face is symmetric, tongue protrudes to the midline. Palatal elevation and sensation normal, hearing and shoulder shrug normal, facial sensation normal. Shoulder shrug normal. On muscle strength testing, there is no pronator drift and the strength is normal in arms and legs distally and proximally. Deep tendon reflexes are (right/left) biceps 2/2+, brachioradialis 2/2+, knee 1/2, ankles 1/2 and plantars are downgoing bilaterally. No clonus. Sensory to touch is equal with no neglect. Cerebellar function showed no ataxia for [id number] testing. No dysdiadochokinesia. Tone and bulk of muscles normal. Gait deferred. On general examination, there is no carotid bruit or murmur, S1-S2 audible. Abdomen is soft nontender. Chest is clear. Peripheral pulses are present. No edema. Results - Laboratory Findings CBC and BMP: 04/05/21 18:08 04/05/21 18:08 Abnormal Lab Findings: Abnormal Labs 04/05/21 04/05/21 04/05/21 18:08 18:08 18:08 RBC 3.68 L Hgb 12.3 L Hct 36.2 L Sodium 131 L Carbon Dioxide 20 L BUN 33 H Creatinine 1.76 H Total Protein 6.1 L Urine Opiates Screen Detected H U Benzodiazepines Scrn Detected H U Marijuana (THC) Screen Detected H Assessment and Plan Assessment: * Status post fall, unclear etiology. Rule out seizure. * History of seizures twice in the past, which he felt was related to "quit drinking". * Fracture of the maxillary bone and fracture of the bridge of the nose from the fall. * History of PTSD * History of marijuana use. * History of alcohol use, currently in remission. * Tobacco use. Plan: * EEG was performed today, which was normal awake pattern. No epileptiform activity was seen. * Carotid Doppler. * We will check B12, folate, RPR. Patient's last ammonia was normal on . TSH is normal. * Psychiatry also on board. Patient at present appears psychotic, with pres sured and rambling speech. * We will follow.
[2021-04-06] MEDS: GABAPENTIN 300 MG CAP PO SCH ×4 (13:48→22:16)
[2021-04-06] MEDS: SODIUM BICARBONATE TAB 650 MG TAB PO SCH ×4 (13:49→22:16)
[2021-04-06] MEDS: SERTRALINE 50 MG TAB PO SCH (13:54)
--- NOTE | 2021-04-06 14:56 | EEG ---
ELECTROENCEPHALOGRAM REPORT DATE OF SERVICE: 04/06/2021 PREAMBLE: This is a 45-year-old male who suffered from a fall. This study is performed to rule out any epileptiform activity. EEG FINDINGS: This is a 21-channel digital EEG recorded with video competent utilizing 10/20 international system with referential and bipolar montages. Background consists of well developed, well regulated, moderate voltage activity in 9 to 10 hertz alpha. Background is posterior-dominant and reactive to eye opening and closing. Frequent low- voltage fast frequency beta activity was seen. Neither photic stimulation nor hyperventilation was performed. Different stages of sleep were not seen. No focal or generalized epileptiform activity was seen. Some myogenic activity was seen frequently during the study because of the pain. IMPRESSION: This is a normal awake EEG. No focal, lateralized or epileptiform activity was seen. Slightly excessive fast frequency beta activity is suggestive of medication effect. MMODL / IJN: [id number] /
--- NOTE | 2021-04-06 15:43 | P.PN ---
Subjective Progress Note Date: 04/06/21 CHIEF COMPLAINT: Fall in bathroom, possible concussion HISTORY OF PRESENT ILLNESS: This is a 45-year-old male who fell in his bathroom. There is no loss of consciousness. He had complained of headache and nose pain. He was combative and agitated with EMS. Patient remains agitated. Patient does have prior history of marijuana, alcohol use, cirrhosis and PTSD. Face CT did show evidence of a nasal fracture and maxillary sinus base fracture. Patient is psychotic with high pressured speech. Patient does have episodes of confusion. Has bedside sitter. Has been seen by psychiatry and neurology. Psychiatry is recommending that patient will require inpatient psychiatric admission when medically cleared. Afebrile. Patient has had a few low blood pressures and medicine service restarted his midodrine. WBC 7.2 cr 1.76 LFTs normal urinalysis negative drug screen positive for opiates, benzos and marijuana, alcohol level less than 10. Patient is having suicidal thoughts. Patient denies any abdominal pain PHYSICAL EXAM: VITAL SIGNS: Reviewed. GENERAL: Disheveled appearance HEENT: No sclera icterus. Extraocular movements grossly intact. Moist buccal mucosa. Head is normocephalic. Patient does have some facial bruising and cut along the bridge of his nose that is scabbed over ABDOMEN: Soft. Nondistended. Nontender. NEUROLOGIC: Confused Psych. Patient easily agitated ASSESSMENT: 1. Fall with trauma to face 2. Fracture of maxillary bone and bridge of nose due to fall 3. History of past heavy alcohol use 4. Drug screen positive for opiates, marijuana and benzodiazepine 5. Psychotic behavior 6. Mood disorder PLAN: -Continue supportive care -Appreciate psychiatry recommendations. Patient will require inpatient psychiatric admission once medically cleared -Patient being evaluated by neurology -Medical service on consult -Continue regular diet Physician Bilingual Hr Generalist note has been reviewed by physician. Signing provider agrees with the documented findings, assessment, and plan of care. Objective - Vital Signs Vital signs: Vital Signs Temp 98.0 F 04/06/21 07:47 Pulse 88 04/06/21 13:00 Resp 18 04/06/21 13:00 BP 97/59 04/06/21 13:00 Pulse Ox 98 04/06/21 13:00 Intake & Output 04/05/21 04/06/21 04/06/21 18:59 06:59 18:59 Weight 73.936 kg - Labs CBC & Chem 7: 04/05/21 18:08 04/05/21 18:08 Labs: Abnormal Lab Results - Last 24 Hours (Table) 04/05/21 04/05/21 04/05/21 Range/Units 18:08 18:08 18:08 RBC 3.68 L (4.30-5.90) m/uL Hgb 12.3 L (13.0-17.5) gm/dL Hct 36.2 L (39.0-53.0) % Sodium 131 L (137-145) mmol/L Carbon Dioxide 20 L (22-30) mmol/L BUN 33 H (9-20) mg/dL Creatinine 1.76 H (0.66-1.25) mg/dL Total Protein 6.1 L (6.3-8.2) g/dL Urine Opiates Screen Detected H (NotDetected) U Benzodiazepines Scrn Detected H (NotDetected) U Marijuana (THC) Screen Detected H (NotDetected)
--- NOTE | 2021-04-06 16:02 | P.CONS ---
History of Present Illness - Reason for Consult Acute renal failure, hyponatremia - History of Present Illness 45-year-old male came in after he had a mechanical fall. Patient heparin given the bathroom although he told me he fell while coming down the steps. Patient is acutely psychotic and noncooperative. Patient has a nasal bone fracture. Patient was evaluated by psychiatry and need to be transferred to psychiatric floor once he is medically stable. Patient does have elevated creatinine of 1.7 baseline is around 1.2 patient is hyponatremic patient is definitely hypovolemic at this time although it doesn't have any syncopal episode. Urine drug screen is positive for opiates and benzodiazepines marijuana. REVIEW OF SYSTEMS: Not a reliable historian because of acute psychosis PHYSICAL EXAMINATION: Is limited because of noncooperation GENERAL: The patient is alert and oriented x3, not in any acute distress. Well developed, well nourished. Acutely psychotic, tangential thoughts HEENT: Unable to assess CARDIOVASCULAR: Unable to assess PULMONARY: Unable to assess ABDOMEN: Unable to assess MUSCULOSKELETAL: No joint swelling or deformity. EXTREMITIES: No cyanosis, clubbing, or pedal edema. NEUROLOGICAL: Gross neurological examination did not reveal any focal deficits. SKIN: No rashes. Assessment and plan -Hypovolemic hyponatremia can you with IV fluids. Patient did receive IV fluids overnight and he is probably okay to be transferred to psychiatric floor later today if he is stable from surgical perspective -Acute renal failure prerenal azotemia due to hypovolemia receiving IV fluids -Mechanical fall with facial trauma and maxillary bone fracture -Multiple drug abuse -Acute psychosis: Management as per psychiatry -Patient does have history of decompensated cirrhosis although patient in let me examine him. He patient is more confident tomorrow we will do further exam. For now will hold off on Lasix because of hyponatremia -Hypertension hold off on propranolol If stable from surgical perspective patient can be transferred to psychiatric floor today. Past Medical History Past Medical History: Hyperlipidemia, Hypertension, Liver Disease, Seizure Disorder, Syncope Additional Past Medical History / Comment(s): hx of ETOH ABUSE-, cirrhosis History of Any Multi-Drug Resistant Organisms: None Reported Past Surgical History: No Surgical Hx Reported Additional Past Surgical History / Comment(s): paracentesis Past Anesthesia/Blood Transfusion Reactions: No Reported Reaction Past Psychological History: Anxiety, Bipolar, Depression, Panic Disorder, PTSD Additional Psychological History / Comment(s): panic attacks. Smoking Status: Current every day smoker Past Alcohol Use History: Abuse, Heavy Additional Past Alcohol Use History / Comment(s): a fifth a day, quit 4 month ago Past Drug Use History: None Reported - Past Family History Mother Family Medical History: Diabetes Mellitus, Hypertension Father History Unknown: Yes Family Medical History: Hypertension Additional Family Medical History / Comment(s): alcoholism Medications and Allergies Home Medications Medication Instructions Recorded Confirmed Type Gabapentin 300 mg PO QID 10/24/20 04/05/21 History Thiamine [Vitamin B-1] 100 mg PO AC-BID 11/11/20 04/05/21 History Multivitamins, Thera [Multivitamin 1 tab PO DAILY 12/02/20 04/05/21 History (formulary)] ALPRAZolam [Xanax] 0.5 mg PO DAILY PRN 01/07/21 04/05/21 History Famotidine [Pepcid] 20 mg PO BID #60 tab 02/09/21 04/05/21 Rx Sodium Bicarbonate Tab 650 mg PO QID #60 tab 02/09/21 04/05/21 Rx Furosemide [Lasix] 40 mg PO DAILY 04/05/21 04/05/21 History Melatonin 3 mg PO HS PRN 04/05/21 04/05/21 History Midodrine HCl [ProAmatine] 10 mg PO TID 04/05/21 04/05/21 History Propranolol [Inderal] 10 mg PO TID 04/05/21 04/05/21 History hydrOXYzine pamoate [Vistaril] 25 mg PO HS 04/05/21 04/05/21 History Allergies Allergy/AdvReac Type Severity Reaction Status Date / Time acetaminophen [From Tylenol] Allergy Unknown Verified 04/05/21 18:38 aripiprazole [From Abilify] AdvReac Unknown Verified 04/05/21 18:38 mirtazapine AdvReac Unknown Verified 04/05/21 18:38 Physical Exam Vitals: Vital Signs Temp Pulse Resp BP Pulse Ox 04/06/21 13:00 88 18 97/59 98 04/06/21 11:00 83 18 102/60 98 04/06/21 10:00 76/44 04/06/21 07:47 98.0 F 83 H 76/44 95 04/06/21 05:49 62 20 94/66 95 04/06/21 05:37 61 20 82/50 97 04/06/21 01:00 78 20 96/60 96 04/05/21 23:02 74 20 98/64 96 04/05/21 20:47 78 20 94/64 96 04/05/21 17:59 98.2 F 75 18 100/78 98 Results CBC & Chem 7: 04/05/21 18:08 04/05/21 18:08 Labs: Abnormal Lab Results - Last 24 Hours (Table) 04/05/21 04/05/21 04/05/21 Range/Units 18:08 18:08 18:08 RBC 3.68 L (4.30-5.90) m/uL Hgb 12.3 L (13.0-17.5) gm/dL Hct 36.2 L (39.0-53.0) % Sodium 131 L (137-145) mmol/L Carbon Dioxide 20 L (22-30) mmol/L BUN 33 H (9-20) mg/dL Creatinine 1.76 H (0.66-1.25) mg/dL Total Protein 6.1 L (6.3-8.2) g/dL Urine Opiates Screen Detected H (NotDetected) U Benzodiazepines Scrn Detected H (NotDetected) U Marijuana (THC) Screen Detected H (NotDetected)
--- NOTE | 2021-04-06 16:22 | P.DS ---
Providers Date of admission: 04/05/21 20:42 Expected date of discharge: 04/06/21 Attending physician: Rubin Pardo Consults: 04/05/21 20:42 Consult Physician Urgent Consulting Provider: Chilango Wadsworth Consult Reason/Comments: Altered mental status Do you want consulting provider notified?: Yes Consult Physician Urgent Consulting Provider: Pee Hall Consult Reason/Comments: Altered mental status Do you want consulting provider notified?: Yes Consult Physician Urgent Consulting Provider: Rashel Carrero Consult Reason/Comments: Suicidal ideations, acute psychosis Do you want consulting provider notified?: Yes Primary care physician: [facility] Hospital Course: Discharge Diagnosis 1. Fall with trauma to face 2. Fracture of maxillary bone and bridge of nose due to fall 3. History of past heavy alcohol use 4. Drug screen positive for opiates, marijuana and benzodiazepine 5. Psychotic behavior 6. Mood disorder 7. Hypovolemic hyponatremia 8. Acute renal failure likely due to dehydration 9. Hypotension Hospital course This is a 45-year-old male who fell at home and didn't had trauma to his face. He denies any loss of consciousness. Patient had multiple imaging completed. Computed tomography scan of the Face did show evidence of a nasal fracture and maxillary sinus base fracture. Patient has had psychotic behavior, easily agitated and evidence of suicidal ideation. He has been evaluated by psychiatry. They have adjusted medications and recommended inpatient psychiatric admission. Case discussed with but does not. He has cleared patient for discharge from medical standpoint. No surgical intervention is required and patient is stable for discharge from trauma surgery perspective. Patient will be discharged to inpatient psychiatric unit. Please refer to chart for any further details. Physician Superintendent Drivers note has been reviewed by physician. Signing provider agrees with the documented findings, assessment, and plan of care. Patient Condition at Discharge: Stable Plan - Discharge Summary New Discharge Prescriptions: New Sertraline [Zoloft] 50 mg PO DAILY tab OLANZapine [ZyPREXA] 5 mg PO HS tab OLANZapine [ZyPREXA] 5 mg PO TID PRN tab PRN Reason: Agitation Continue Gabapentin 300 mg PO QID ALPRAZolam [Xanax] 0.5 mg PO DAILY PRN PRN Reason: PANIC ATTACKS Sodium Bicarbonate Tab 650 mg PO QID #60 tab Famotidine [Pepcid] 20 mg PO BID #60 tab Melatonin 3 mg PO HS PRN PRN Reason: SLEEP Midodrine HCl [ProAmatine] 10 mg PO TID Thiamine [Vitamin B-1] 100 mg PO AC-BID Multivitamins, Thera [Multivitamin (formulary)] 1 tab PO DAILY hydrOXYzine pamoate [Vistaril] 25 mg PO HS Discontinued Furosemide [Lasix] 40 mg PO DAILY Propranolol [Inderal] 10 mg PO TID Discharge Medication List Gabapentin 300 mg PO QID 10/24/20 [History] Thiamine [Vitamin B-1] 100 mg PO AC-BID 11/11/20 [History] Multivitamins, Thera [Multivitamin (formulary)] 1 tab PO DAILY 12/02/20 [History] ALPRAZolam [Xanax] 0.5 mg PO DAILY PRN 01/07/21 [History] Famotidine [Pepcid] 20 mg PO BID #60 tab 02/09/21 [Rx] Sodium Bicarbonate Tab 650 mg PO QID #60 tab 02/09/21 [Rx] Melatonin 3 mg PO HS PRN 04/05/21 [History] Midodrine HCl [ProAmatine] 10 mg PO TID 04/05/21 [History] hydrOXYzine pamoate [Vistaril] 25 mg PO HS 04/05/21 [History] OLANZapine [ZyPREXA] 5 mg PO HS tab 04/06/21 [Rx] OLANZapine [ZyPREXA] 5 mg PO TID PRN tab 04/06/21 [Rx] Sertraline [Zoloft] 50 mg PO DAILY tab 04/06/21 [Rx] Follow up Appointment(s)/Referral(s): Liliane Khanna MD [REFERRING] - 1-2 days Activity/Diet/Wound Care/Special Instructions: ok to transfer to psychiatric unit Discharge Disposition: TRANSFER TO PSYCH HOSP/UNIT
[2021-04-06 18:01] VITALS: TEMP 97.8
[2021-04-06] MEDS: THIAMINE 100 MG TAB PO SCH (19:27)
[2021-04-06] MEDS: FAMOTIDINE 20 MG TAB PO SCH (22:01)
[2021-04-06] MEDS: OLANZapine 5 MG TAB PO SCH ×2 (22:10→22:16)
--- NOTE | 2021-04-07 01:04 | US ---
EXAMINATION TYPE: US carotid duplex BILAT DATE OF EXAM: 04/06/2021 COMPARISON: NONE CLINICAL HISTORY: Fall, ?Syncope. Syncope EXAM MEASUREMENTS: RIGHT: Peak Systolic Velocity (PSV) cm/sec ----- Right CCA: 90.0 ----- Right ICA: 80.1 ----- Right ECA: 127.9 ICA/CCA ratio: 0.9 RIGHT: End Diastole cm/sec ----- Right CCA: 27.5 ----- Right ICA: 20.8 ----- Right ECA: 27.4 LEFT: Peak Systolic Velocity (PSV) cm/sec ----- Left CCA: 96.8 ----- Left ICA: 85.3 ----- Left ECA: 128.6 ICA/CCA ratio: 0.9 LEFT: End Diastole cm/sec ----- Left CCA: 17.6 ----- Left ICA: 21.9 ----- Left ECA: 28.4 VERTEBRALS (direction of flow): Right Vertebral: Antegrade Left Vertebral: Antegrade Rhythm: Normal No plaque, elevated velocities, significant stenosis or wall thickening. IMPRESSION: There is antegrade flow in the vertebral arteries. The images and measurements suggest close to 0% st enosis in both internal carotid arteries. Criteria for Assigning % of Stenosis / Diameter reduction (Estimation based on the indirect measurements of the internal carotid artery velocities (ICA PSV). 1. Normal (no stenosis)=ICA PSV < 125 cm/s: ratio < 2.0: ICA EDV<40 cm/s. 2. Less than 50% stenosis=ICA PSV < 125 cm/s: ratio < 2.0: ICA EDV<40 cm/s. 3. 50 to 69% stenosis=ICA PSV of 125 to 230 cm/s: ration 2.0 ? 4.0: ICA EDV 40-100 cm/s. 4. Greater than 70% stenosis to near occlusion= ICA PSV > 230 cm/s: ratio > 4.0: ICA EDV > 100 cm/s. 5. Near occlusion= ICA PSV velocities may be low or undetectable: variable ratio and ICA EDV. 6. Total occlusion=unable to detect flow.
[2021-04-07] MEDS ORDERED: LORazepam 2 MG/ML INJ IM STA (03:16)
[2021-04-07] MEDS ORDERED: LORazepam 2 MG/ML INJ IM PRN (03:38)
[2021-04-07] MEDS: MIDODRINE 5 MG TAB PO SCH ×3 (06:40→18:25)
[2021-04-07] MEDS: THIAMINE 100 MG TAB PO SCH ×2 (06:40→20:58)
[2021-04-07 08:47] LABS: Folate, Serum >20.00 ng/mL (4.40-31.00)
[2021-04-07] MEDS: GABAPENTIN 300 MG CAP PO SCH ×4 (09:59→20:59)
[2021-04-07] MEDS: SODIUM BICARBONATE TAB 650 MG TAB PO SCH ×4 (09:59→21:12)
[2021-04-07] MEDS: FAMOTIDINE 20 MG TAB PO SCH ×2 (09:59→20:58)
[2021-04-07] MEDS: SERTRALINE 50 MG TAB PO SCH (09:59)
[2021-04-07] MEDS ORDERED: NAPROXEN 250 MG TAB PO SCH (10:15)
[2021-04-07 10:26] LABS: African American GFR (CKD) >90 (>60 ml/min/1.73 sqM); Anion Gap 5 mmol/L; Blood Urea Nitrogen 22 mg/dL (9-20); Calcium 8.7 mg/dL (8.4-10.2); Carbon Dioxide 20 mmol/L (22-30); Chloride 109 mmol/L (98-107); Glucose 91 mg/dL (74-99); Non-African American GFR(CKD) 81 (>60 ml/min/1.73 sqM); Potassium 4.2 mmol/L (3.5-5.1); Sodium 134 mmol/L (137-145)
--- NOTE | 2021-04-07 11:52 | P.PN ---
Subjective Progress Note Date: 04/07/21 45-year-old male came in after he had a mechanical fall. Patient heparin given the bathroom although he told me he fell while coming down the steps. Patient is acutely psychotic and noncooperative. Patient has a nasal bone fracture. Patient was evaluated by psychiatry and need to be transferred to psychiatric floor once he is medically stable. Patient does have elevated creatinine of 1.7 baseline is around 1.2 patient is hyponatremic patient is definitely hypovolemic at this time although it doesn't have any syncopal episode. Urine drug screen is positive for opiates and benzodiazepines marijuana. On 04/07/2021 Patient is evaluated today with a safety sensitive bedside. He is alert oriented 3 and more cooperative. He does complain of some headache and pain medications were adjusted. He denies any changes to his vision, blurry vision, dizziness or lightheadedness. He is denying any chest pain, chest pressure, palpitations. He denies any cough or shortness of breath. Patient was also evaluated neurology who performed an EEG that was negative for any epileptiform activity, carotid Doppler was negative for any stenosis. Blood pressure today 100/67. ROS Constitutional: Denied any fatigue denied any fever. reports headache Cardio vascular: denied any chest pain, palpitations Gastrointestinal: denied any nausea vomiting Pulmonary: Denied any shortness of breath cough Neurologic denied any new focal deficits All inpatient medications were reviewed and appropriate changes in these medications as dictated in the interval history and assessment and plan. PHYSICAL EXAMINATION: GENERAL: The patient is alert and oriented x3. He is holding his head in his hands at the time of my assessment. Well developed, well nourished. HEENT: Pupils are round and equally reacting to light. EOMI. No scleral icterus. No conjunctival pallor. Normocephalic, atraumatic. No pharyngeal erythema. No thyromegaly. He does have an abrasion over his nasal bridge. CARDIOVASCULAR: S1 and S2 present. No murmurs, rubs, or gallops. PULMONARY: Chest is clear to auscultation, no wheezing or crackles. ABDOMEN: Soft, nontender, nondistended, normoactive bowel sounds. No palpable organomegaly. MUSCULOSKELETAL: No joint swelling or deformity. EXTREMITIES: No cyanosis, clubbing, or pedal edema. NEUROLOGICAL: Gross neurological examination did not reveal any focal deficits. SKIN: No rashes. Assessment and plan -Hypovolemic hyponatremia, treated with IV fluids and was transitioned to oral sodium bicarbonate tablets. Sodium today is 134. -Acute renal failure prerenal azotemia due to hypovolemia, improved with IV fluids creatinine is 1.08. -Mechanical fall with facial trauma and maxillary bone fracture -Multiple drug abuse -Acute psychosis: Management as per psychiatry -Patient does have history of decompensated cirrhosis, lasix is held due to hyponatremia, there is no acute abdominal pain on assessment -Hypotension hold off on propranolol Patient can be medically discharged to inpatient psych treatment. Objective - Vital Signs Vital signs: Vital Signs Temp 97.8 F 04/07/21 09:55 Pulse 97 04/07/21 09:55 Resp 18 04/07/21 09:55 BP 100/67 04/07/21 09:55 Pulse Ox 96 04/07/21 09:55 - Labs CBC & Chem 7: 04/05/21 18:08 04/07/21 09:44 Labs: Abnormal Lab Results - Last 24 Hours (Table) 04/07/21 Range/Units 09:44 Sodium 134 L (137-145) mmol/L Chloride 109 H (98-107) mmol/L Carbon Dioxide 20 L (22-30) mmol/L BUN 22 H (9-20) mg/dL Assessment and Plan Time with Patient: Greater than 30
--- NOTE | 2021-04-07 12:14 | P.PN ---
<Jimena Flannery - Last Filed: 04/07/21 12:07> Subjective Progress Note Date: 04/07/21 CHIEF COMPLAINT: Fall in bathroom, possible concussion HISTORY OF PRESENT ILLNESS: This is a 45-year-old male who fell in his bathroom. There is no loss of consciousness. He is evidence of a nasal fracture. He is complaining more of a headache today it with sensitivity to light. He will be receiving Motrin for the pain. He is not agitated today. He is more calm. Answering questions appropriately. Patient was suppose to be transferred to the psychiatric unit yesterday. However, due to his insurance he requires to go to the [place]. Social work is working on having patient transferred to the psychiatric unit at the [facility]. Patient was able to tolerate diet. Afebrile. Sodium is 134 creatinine is better at 1.08 B12 and folate are normal. Patient has been medically cleared for discharge PHYSICAL EXAM: VITAL SIGNS: Reviewed. GENERAL: Disheveled appearance HEENT: No sclera icterus. Extraocular movements grossly intact. Moist buccal mucosa. Head is normocephalic. Patient does have some facial bruising and cut along the bridge of his nose that is scabbed over ABDOMEN: Soft. Nondistended. Nontender. NEUROLOGIC: Alert and oriented Psych. Patient is calm and answering patient's appropriately. ASSESSMENT: 1. Fall with trauma to face 2. Fracture of maxillary bone and bridge of nose due to fall 3. History of past heavy alcohol use 4. Drug screen positive for opiates, marijuana and benzodiazepine 5. Psychotic behavior 6. Mood disorder PLAN: -Continue supportive care -Add Motrin is needed every 6 hours for pain -Appreciate psychiatry recommendations. Patient will require inpatient psychiat suma admission once medically cleared -Continue regular diet -Continue ice packs as needed for pain -Patient still has bedside sitter -Social work working on transferring patient to psychiatric unit at the [facility] Physician Research Psychologist note has been reviewed by physician. Signing provider agrees with the documented findings, assessment, and plan of care. Objective - Vital Signs Vital signs: Vital Signs Temp 97.8 F 04/07/21 09:55 Pulse 97 04/07/21 09:55 Resp 18 04/07/21 09:55 BP 100/67 04/07/21 09:55 Pulse Ox 96 04/07/21 09:55 - Labs CBC & Chem 7: 04/05/21 18:08 04/07/21 09:44 Labs: Abnormal Lab Results - Last 24 Hours (Table) 04/07/21 Range/Units 09:44 Sodium 134 L (137-145) mmol/L Chloride 109 H (98-107) mmol/L Carbon Dioxide 20 L (22-30) mmol/L BUN 22 H (9-20) mg/dL <Justin Blanco - Last Filed: 04/07/21 17:53> Subjective As above. Awaiting inpatient psychiatry admission once cleared medically. Continue analgesics. Objective - Vital Signs Vital signs: Vital Signs Temp 97.8 F 04/07/21 09:55 Pulse 78 04/07/21 16:23 Resp 16 04/07/21 16:23 BP 93/62 04/07/21 16:23 Pulse Ox 97 04/07/21 16:23 - Labs CBC & Chem 7: 04/05/21 18:08 04/07/21 09:44 Labs: Abnormal Lab Results - Last 24 Hours (Table) 04/07/21 Range/Units 09:44 Sodium 134 L (137-145) mmol/L Chloride 109 H (98-107) mmol/L Carbon Dioxide 20 L (22-30) mmol/L BUN 22 H (9-20) mg/dL
[2021-04-07] MEDS: NICOTINE 7MG/24HR PATCH TRANSDERM SCH (12:53)
--- NOTE | 2021-04-07 13:40 | CT ---
EXAMINATION TYPE: CT brain wo con DATE OF EXAM: 04/07/2021 COMPARISON: 04/05/2021 HISTORY: 45-year-old male Headache TECHNIQUE: Examination was done in axial plane without intravenous contrast. Coronal and sagittal r econstructions performed. CT DLP: 1084.4 mGycm Automated exposure control for dose reduction was used. FINDINGS: There is no evidence of acute intracranial hemorrhage, acute ischemic changes, mass, mass-effect, or extra-axial fluid collection. There is no effacement of cerebral sulci or basal subarachnoid cister ns. There is no hydrocephalus. There is no midline shift. Urias-white matter distinction is preserv ed. Slight residual anterior frontal scalp contusion. No underlying calvarial fracture. There is some irr egularity of the superior nasal bone noted and some overlying soft tissue swelling. Mild mucosal thickening right maxillary sinus. Moderate mucosal thickening scattered throughout the l eft greater than right ethmoid air cells. Leftward nasal septal deviation. Mastoid air cells well pne umatized. IMPRESSION: 1. Some mild anterior frontal scalp contusion remains. No acute intracranial abnormality seen. 2. Some irregularity of the superior nasal bone with overlying soft tissue swelling. Nondepressed fra cture redemonstrated across the bridge of the nose.
--- NOTE | 2021-04-07 13:43 | P.PN ---
Subjective Progress Note Date: 04/07/21 Patient complaining of severe headache /10. He is much more comfortable, cooperative. States the back pain is not as bad as yesterday. Awaiting transfer to [facility]. Objective - Vital Signs Vital signs: Vital Signs Temp 97.8 F 04/07/21 09:55 Pulse 97 04/07/21 09:55 Resp 18 04/07/21 09:55 BP 100/67 04/07/21 09:55 Pulse Ox 96 04/07/21 09:55 - Exam Patient appears photophobic, avoids light because of headache, rates headache 9/10. Pupils are round and reacting, visual mays are full, face is symmetric and tongue protrudes the midline. Muscles of the brain is normal in the arms. His hip flexion is about 4 bilaterally. Ankles are normal. Complains of pain in the ankles. No ataxia. Tone and bulk of muscles normal. Plantars downgoing. Patient was asked to walk. When he got up on his feet, he was somewhat unsteady. Doubling up because of headache. - Labs CBC & Chem 7: 04/05/21 18:08 04/07/21 09:44 Labs: Abnormal Lab Results - Last 24 Hours (Table) 04/07/21 Range/Units 09:44 Sodium 134 L (137-145) mmol/L Chloride 109 H (98-107) mmol/L Carbon Dioxide 20 L (22-30) mmol/L BUN 22 H (9-20) mg/dL Assessment and Plan Assessment: * Status post fall, unclear etiology. Rule out seizure. * History of seizures twice in the past, which he felt was related to "quit drinking". * Cephalalgia, probably due to concussion. * Fracture of the maxillary bone and fracture of the bridge of the nose from the fall. * History of PTSD * History of marijuana use. * History of alcohol use, currently in remission. * Tobacco use. Plan: * Repeat computed tomography scan of the head was performed to rule out slow-gr owing subdural hematoma. It was performed today, which again showed some mild anterior frontal scalp contusion remains. No acute intracranial process. Some irregularity of the superior nasal bone with overlying soft tissue swelling. * EEG 04/06/2021 was normal awake pattern. No epileptiform activity was seen. * Carotid Doppler ultrasound showed no stenosis. Antegrade flow in both vertebral arteries. * B12 694, folate >20, RPR pending. Patient's last ammonia was normal on 11/29/2020. TSH is normal. * Patient continues to have severe headache, likely from concussion. We will try Fioricet. Patient's ALLERGY list indicates acetaminophen as ALLERGY. I asked the patient, he does not know if any ALLERGY to acetaminophen. Never had any break out in hives, or difficulty breathing or lip swelling. He consented to try Fioricet, as the headache is very severe. * Psychiatry also on board. Patient needs to be admitted to mental health unit. Patient awaiting transfer to [facility]. * Neurologically clear.
[2021-04-07] MEDS: ALBUMIN HUMAN 25% 50 ML in EMPTY BAG 1 BAG IVPB SCH ×3 (18:00→18:58)
[2021-04-07] MEDS: BUTALB/APAP/CAFF 50-325-40MG TAB PO PRN (18:04)
[2021-04-07] MEDS: IBUPROFEN 600 MG TAB PO SCH ×2 (18:24→20:59)
[2021-04-07 18:26] VITALS: RESP 18
[2021-04-07] MEDS ORDERED: SODIUM CHLORIDE 0.9% 500 ML 500 ML IV ONE ×2 (20:38→21:18)
--- NOTE | 2021-04-07 20:49 | US ---
Ultrasound-guided paracentesis. DATE OF EXAM: 04/07/2021 CLINICAL HISTORY: Ascites The procedure was discussed with the patient. The risks, complications, benefits, and alternatives we re discussed and any questions were answered. Informed consent was obtained. The patient was placed s upine on the ultrasound table and prepped and draped in the usual sterile fashion. All elements of maximal barrier technique were utilized. Under ultrasound guidance, access into the right lower quadrant was obtained, via the paracentesis catheter system and direct ultrasound guidanc e. Approximately 6.2 liters of straw-colored fluid was removed. The patient was stable throughout the pr ocedure and remained stable upon discharge from Department of Radiology. IMPRESSION: Successful paracentesis under ultrasound guidance.
[2021-04-07] MEDS: OLANZapine 5 MG TAB PO SCH (20:59)
[2021-04-07] MEDS ORDERED: SODIUM CHLORIDE 0.9% 1,000 ML IV SCH (23:00)
[2021-04-07] MEDS ORDERED: SODIUM CHLORIDE 0.9% 1,000 ML IV ONE (23:03)
[2021-04-08] MEDS: BUTALB/APAP/CAFF 50-325-40MG TAB PO PRN (04:59)
[2021-04-08] MEDS: MIDODRINE 5 MG TAB PO SCH ×2 (05:18→12:09)
[2021-04-08] MEDS: IBUPROFEN 600 MG TAB PO SCH (08:20)
[2021-04-08] MEDS: THIAMINE 100 MG TAB PO SCH (08:20)
[2021-04-08] MEDS: GABAPENTIN 300 MG CAP PO SCH ×2 (08:25→12:09)
[2021-04-08] MEDS: SODIUM BICARBONATE TAB 650 MG TAB PO SCH ×2 (08:26→12:09)
[2021-04-08] MEDS: FAMOTIDINE 20 MG TAB PO SCH (08:26)
--- NOTE | 2021-04-08 11:51 | P.PN ---
Subjective Progress Note Date: 04/08/21 CHIEF COMPLAINT: Fall in bathroom, possible concussion HISTORY OF PRESENT ILLNESS: This is a 45-year-old male who fell in his bathroom. There is no loss of consciousness. He is evidence of a nasal fracture. Patient does report improvement in his headache. He reports that his nose feels back to normal. He did have a paracentesis with 6.2 L removed yesterday he did receive albumin. Due to the headache yesterday neurology did order repeat computed tomography scan of the brain which showed some mild anterior frontal scalp contusion remains. No acute intracranial or melena seen. Some irregularity at the superior nasal bone with overlying soft tissue swelling. Nondistressed fracture redemonstrated across bridge of the nose. Patient remains in the ER. He is awaiting transfer to psychiatric [facility]. Patient did have some hypotension in which medicine did order IV fluid boluses. Patient does take midodrine at home. PHYSICAL EXAM: VITAL SIGNS: Reviewed. GENERAL: Disheveled appearance HEENT: No sclera icterus. Extraocular movements grossly intact. Moist buccal mucosa. Head is normocephalic. Patient does have some facial bruising and cut along the bridge of his nose that is scabbed over ABDOMEN: Soft. Nondistended. Nontender. NEUROLOGIC: Alert and oriented Psych. Patient is calm and answering patient's appropriately. ASSESSMENT: 1. Fall with trauma to face 2. Fracture of maxillary bone and bridge of nose due to fall 3. History of past heavy alcohol use 4. Drug screen positive for opiates, marijuana and benzodiazepine 5. Psychotic behavior 6. Mood disorder 7. Concussion with headache PLAN: -Continue supportive care -Add Motrin is needed every 6 hours for pain -Appreciate psychiatry recommendations. Patient will require inpatient psychiatric admission -Awaiting bed availability for transfer to psychiatric unit at [facility] -Continue regular diet Physician Cargo Supervisor note has been reviewed by physician. Signing provider agrees with the documented findings, assessment, and plan of care. Objective - Vital Signs Vital signs: Vital Signs Temp 97.8 F 04/07/21 09:55 Pulse 67 04/08/21 08:35 Resp 18 04/08/21 08:35 BP 88/58 04/08/21 08:35 Pulse Ox 95 04/08/21 08:35 Intake & Output 04/07/21 04/08/21 04/08/21 18:59 06:59 18:59 Output Total 500 Balance -500 Output: Urine 500 Other: Voiding Method Urinal # Voids 2 - Labs CBC & Chem 7: 04/05/21 18:08 04/07/21 09:44
[2021-04-08] MEDS: NICOTINE 7MG/24HR PATCH TRANSDERM SCH (12:01)
[2021-04-08] MEDS: SERTRALINE 50 MG TAB PO SCH (12:01)
--- NOTE | 2021-04-08 13:08 | P.DS ---
Providers Date of admission: 04/08/21 10:38 Expected date of discharge: 04/08/21 Attending physician: Rubin Pardo Consults: 04/05/21 20:42 Consult Physician Urgent Consulting Provider: Chilango Wadsworth Consult Reason/Comments: Altered mental status Do you want consulting provider notified?: Yes Consult Physician Urgent Consulting Provider: Pee Hall Consult Reason/Comments: Altered mental status Do you want consulting provider notified?: Yes Consult Physician Urgent Consulting Provider: Rashel Carrero Consult Reason/Comments: Suicidal ideations, acute psychosis Do you want consulting provider notified?: Yes 04/07/21 16:45 Consult Physician Stat Consulting Provider: Mason Berrios Consult Reason/Comments: reevaluation for cert and petition for transfer to mental health unit Do you want consulting provider notified?: Yes Primary care physician: [facility] Hospital Course: Discharge diagnosis 1. Fall with trauma to face 2. Fracture of maxillary bone and bridge of nose due to fall 3. History of past heavy alcohol use 4. Drug screen positive for opiates, marijuana and benzodiazepine 5. Psychotic behavior 6. Mood disorder 7. Concussion with headache Hospital course This is a 45-year-old male who fell at home and did have trauma to his face. He denies any loss of consciousness. Patient had multiple imaging completed. Computed tomography scan of the Face did show evidence of a nasal fracture and maxillary sinus base fracture. Patient has had psychotic behavior, easily agitated and evidence of suicidal ideation. He has been evaluated by psychiatry. They have adjusted medications and initially recommended inpatient psychiatric admission. However, while patient was waiting transfer to inpatient psychiatric care at the [facility] patient's agitation and psychotic behavior has improved. Patient is cooperative. He has been reevaluated by psychiatry and EPS nurse. They have cleared him for discharge home with outpatient psychiatric follow-up. Per psychiatry patient does not require inpatient psychiatric care at this time. Please refer to psychiatry charting. Patient also seen and evaluated by neurology and medicine service. They have cleared patient for discharge. From trauma surgical standpoint patient is stable for discharge. His pain is controlled. He is tolerating diet. He is up and ambulating. He is afebrile. Patient is stable for discharge. Please refer to chart for any further details. Physician Electric Detector Operator note has been reviewed by physician. Signing provider agrees with the documented findings, assessment, and plan of care. Patient Condition at Discharge: Stable Plan - Discharge Summary New Discharge Prescriptions: New Butalb/APAP/Caff 50-325-40Mg [Fioricet 50-325-40] 1 each PO Q6HR PRN 3 Days #12 tab PRN Reason: Headache Nicotine 7Mg/24Hr Patch [Habitrol] 1 patch TRANSDERM DAILY #3 patch Ibuprofen [Motrin] 600 mg PO TID tab OLANZapine 5 mg PO TID PRN #6 tablet PRN Reason: Agitation OLANZapine 5 mg PO HS #3 tablet Sertraline [Zoloft] 50 mg PO DAILY #30 tab Continue Gabapentin 300 mg PO QID ALPRAZolam [Xanax] 0.5 mg PO DAILY PRN PRN Reason: PANIC ATTACKS Sodium Bicarbonate Tab 650 mg PO QID #60 tab Famotidine [Pepcid] 20 mg PO BID #60 tab Melatonin 3 mg PO HS PRN PRN Reason: SLEEP Thiamine [Vitamin B-1] 100 mg PO AC-BID Multivitamins, Thera [Multivitamin (formulary)] 1 tab PO DAILY hydrOXYzine pamoate [Vistaril] 25 mg PO HS Midodrine HCl [ProAmatine] 10 mg PO TID #90 tab Discontinued Furosemide [Lasix] 40 mg PO DAILY Propranolol [Inderal] 10 mg PO TID Discharge Medication List Gabapentin 300 mg PO QID 10/24/20 [History] Thiamine [Vitamin B-1] 100 mg PO AC-BID 11/11/20 [History] Multivitamins, Thera [Multivitamin (formulary)] 1 tab PO DAILY 12/02/20 [History] ALPRAZolam [Xanax] 0.5 mg PO DAILY PRN 01/07/21 [History] Famotidine [Pepcid] 20 mg PO BID #60 tab 02/09/21 [Rx] Sodium Bicarbonate Tab 650 mg PO QID #60 tab 02/09/21 [Rx] Melatonin 3 mg PO HS PRN 04/05/21 [History] hydrOXYzine pamoate [Vistaril] 25 mg PO HS 04/05/21 [History] Butalb/APAP/Caff 50-325-40Mg [Fioricet 50-325-40] 1 each PO Q6HR PRN 3 Days #12 tab 04/08/21 [Rx] Ibuprofen [Motrin] 600 mg PO TID tab 04/08/21 [Rx] Midodrine HCl [ProAmatine] 10 mg PO TID #90 tab 04/08/21 [Rx] Nicotine 7Mg/24Hr Patch [Habitrol] 1 patch TRANSDERM DAILY #3 patch 04/08/21 [Rx] OLANZapine 5 mg PO HS #3 tablet 04/08/21 [Rx] OLANZapine 5 mg PO TID PRN #6 tablet 04/08/21 [Rx] Sertraline [Zoloft] 50 mg PO DAILY #30 tab 04/08/21 [Rx] Follow up Appointment(s)/Referral(s): Liliane Khanna MD [REFERRING] - 1-2 days Activity/Diet/Wound Care/Special Instructions: Please add who patient follows up with psychiatry for on the DC summary thank you Discharge Disposition: HOME SELF-CARE
[2021-04-08] MEDS ORDERED: OLANZapine 7.5 MG TAB PO ONE (13:25)
--- NOTE | 2021-04-08 13:41 | P.PN ---
Progress Note - Text Progress Note Date: 04/08/21 Interval History: Patient was seen today for psychiatric follow-up regarding patient's mood diso rder and PTSD. Patient was last seen by justowriter operator and was supposed to be transferred to [place] inpatient psychiatry however was not able to find beds. Caustic Loader was asked to follow up with patient today as supposedly he had been improving. Patient has been taking his Zyprexa and Zoloft as prescribed. Patient was talking to his father today and was awake and alert and appeared to have an improvement in his affect. He appeared to be much calmer today and did not have any irritability. He spoke about his treatment and claiming that the medications have been helping him feel better overall. He is denying any anxiety today or any problems with his mood. He states that he is able to sleep okay at night however still has dreams and wakes up at times. He was agreeable to have his Zyprexa increased at nighttime. He claims that he'll be following up with the [facility]. At this time patient denies any suicidal or homical ideations, intent or plan. Patient denies any auditory, visual hallucinations and denies any paranoia or delusions. Patient denies any side effects from the medications and has been compliant with meds. Her spoke with father outside of the room who claims that patient has been doing much better and states that he is in support to not relapsed back on alcohol. Father also claims that there is no guns or weapons in the house. Mental Status Exam: General Appearance: [Patient appears to be thin, wearing glasses, multiple healing abrasions on his face, stated age is alert, directable, and cooperative.] Behavior: [Patient is calmly seated without any agitated behavior.] More cooperative today Speech: Patient's speech is fluent and nonpressured. Mood/Affect: Mood is improving, affect is congruent Suicidality/Homicidality: Patient denies having any suicidal or homicidal ideation intent or plan. Perceptions: Patient denies any visual hallucinations [and denies any auditory hallucinations] Though content/process: [There is no evidence of any delusional thought content and thought process is linear and goal-directed.] Future oriented Memory and concentration: AOX3, grossly intact for the purposes of this session Judgment and insight: Improving Assessment Mood disorder unspecified PTSD Cannabis use disorder Alcohol use disorder, currently in remission Nicotine dependence Plan: -At this time patient DOES NOT meet criteria for inpatient psychiatric admission as patient has improved signifcantly over the past few days has been taking meds and no longer suicidal or homicidal. -Would recommend the following medication changes/additions: increase Zyprexa 7.5 mg daily at bedtime for mood stabilization/insomnia. Zoloft 50 mg daily for mood/anxiety. - can discontinue 1:1 sitter as patient has improved and no longer endorsing SI or HI -Patient will be following up with [facility] outpt ctr for psychiatric care. -Communicated plan to patient's nurse -Psychiatry will sign off at this time -Please contact with any questions.
[2021-04-08 13:51] VITALS: BP 95/73; PULSE 90
--- NOTE | 2021-04-08 19:15 | P.PN ---
Subjective Progress Note Date: 04/08/21 Patient's headache had improved. He does not appear to be in distress. He is much more alert and awake. Patient's dad was also present today. Both patient and the father stopped drinking alcohol 1-1/2 years ago. Patient's dad states that patient was having a bowel movement, got up from the toilet, and his feet slipped and fell on the floor face forward. There was no seizure reported. Patient's dad also agrees that he had a seizure a few years ago in [place], however it was alcohol related. Patient's blood pressure was low but now it's better. Objective - Vital Signs Vital signs: Vital Signs Temp 97.8 F 04/08/21 14:54 Pulse 90 04/08/21 14:54 Resp 18 04/08/21 14:54 BP 95/73 04/08/21 14:54 Pulse Ox 98 04/08/21 14:54 Intake & Output 04/08/21 04/08/21 04/09/21 06:59 18:59 06:59 Output Total 500 Balance -500 Output: Urine 500 Other: Voiding Method Urinal # Voids 2 - Exam Patient is alert and awake, oriented. Speech and language functions are normal. Muscle strength appears normal. Patient able to get up. He initially appeared somewhat unsteady, but the more he walked, the more steady he became. He feels that gait imbalance is likely because being in bed for so many days. He does not use any device. Does not want to use one. Patient lives with his parents in the same house. - Labs CBC & Chem 7: 04/05/21 18:08 04/07/21 09:44 Assessment and Plan Assessment: * Status post fall, probably due to slipping while getting up from the toilet seat. No evidence of seizure reported by patient's dad. * History of seizures twice in the past, which he felt was related to "quit drinking". * Cephalalgia, probably due to concussion. * Fracture of the maxillary bone and fracture of the bridge of the nose from the fall. * History of PTSD * History of marijuana use. * History of alcohol use, currently in remission since last 1-1/2 years. * Tobacco use. Plan: * Patient's gait has improved. His headache has improved. Patient does not want to use any assistive device. He was informed to be very cautious with his walking. Patient is clear to be discharged home. Also spoke to patient's psychiatrist Dr Berrios. His psychiatric medications have been adjusted by the psychiatrist. * Repeat computed tomography scan of the head 04/07/2021 which again showed some mild anterior frontal scalp contusion remains. No acute intracranial process. Some irregularity of the superior nasal bone with overlying soft tissue swelling. * EEG 04/06/2021 was normal awake pattern. No epileptiform activity was seen. * Carotid Doppler ultrasound showed no stenosis. Antegrade flow in both vertebral arteries. * B12 694, folate >20, RPR pending. Patient's last ammonia was normal on 11/29/2020. TSH is normal. * Patient continues to have severe headache, likely from concussion. We will try Fioricet. Patient's ALLERGY list indicates acetaminophen as ALLERGY. I asked the patient, he does not know if any ALLERGY to acetaminophen. Never had any break out in hives, or difficulty breathing or lip swelling. He consented to try Fioricet, as the headache is very severe. * Psychiatry also on board. Patient cleared by psychiatry is as well. * Neurologically clear for discharge. Addendum 04/25/2021: It appears RPR/syphilis antibody testing was canceled.
--- NOTE | 2021-04-08 22:48 | P.PN ---
Subjective Progress Note Date: 04/08/21 45-year-old male came in after he had a mechanical fall. Patient heparin given the bathroom although he told me he fell while coming down the steps. Patient is acutely psychotic and noncooperative. Patient has a nasal bone fracture. Patient was evaluated by psychiatry and need to be transferred to psychiatric floor once he is medically stable. Patient does have elevated creatinine of 1.7 baseline is around 1.2 patient is hyponatremic patient is definitely hypovolemic at this time although it doesn't have any syncopal episode. Urine drug screen is positive for opiates and benzodiazepines marijuana. On 04/07/2021 Patient is evaluated today with a safety sensitive bedside. He is alert oriented 3 and more cooperative. He does complain of some headache and pain medications were adjusted. He denies any changes to his vision, blurry vision, dizziness or lightheadedness. He is denying any chest pain, chest pressure, palpitations. He denies any cough or shortness of breath. Patient was also evaluated neurology who performed an EEG that was negative for any epileptiform activity, carotid Doppler was negative for any stenosis. Blood pressure today 100/67. 04/08/2021 Patient is evaluated in the EC today with his father at the bedside. He is cooperative and appropriate today. He had a therapeutic thoracentesis done yesterday with 6.2L taken off and experienced some hypotension in the evening. He did have 3 bags of albumin s/p paracentesis. We hydrated the patient and gave his midodrine this morning. Blood pressure today is 95/73 which is his basesline. Patient was reevaluated by psychiatry today who agreed with the improvement in patients overall thought process, and pt is denying suicidal, homicidal ideations. Patient no longer meets criteria for inpatient psychiatric treatment, patients father at the bedside is in agreeance to support alcohol cessation. Psychiatry did recommend increasing xyprexa to 7.5 mg po at HS, however, this was not noted until after discharge. Sodium is improved today to 3.4. Patient was given fioricet for headache, he does state it is feeling better and is not aggravated by bright light today. ROS Constitutional: Denied any fatigue denied any fever. reports headache Cardio vascular: denied any chest pain, palpitations Gastrointestinal: denied any nausea vomiting Pulmonary: Denied any shortness of breath cough Neurologic denied any new focal deficits All inpatient medications were reviewed and appropriate changes in these medications as dictated in the interval history and assessment and plan. PHYSICAL EXAMINATION: GENERAL: The patient is alert and oriented x3. He is holding his head in his hands at the time of my assessment. Well developed, well nourished. HEENT: Pupils are round and equally reacting to light. EOMI. No scleral icterus. No conjunctival pallor. Normocephalic, atraumatic. No pharyngeal erythema. No thyromegaly. He does have an abrasion over his nasal bridge. CARDIOVASCULAR: S1 and S2 present. No murmurs, rubs, or gallops. PULMONARY: Chest is clear to auscultation, no wheezing or crackles. ABDOMEN: Soft, nontender, nondistended, normoactive bowel sounds. No palpable organomegaly. MUSCULOSKELETAL: No joint swelling or deformity. EXTREMITIES: No cyanosis, clubbing, or pedal edema. NEUROLOGICAL: Gross neurological examination did not reveal any focal deficits. SKIN: No rashes. Assessment and plan -Hypovolemic hyponatremia, treated with IV fluids and was transitioned to oral sodium bicarbonate tablets. Sodium today is 134. -Acute renal failure prerenal azotemia due to hypovolemia, improved with IV fluids creatinine is 1.08. -Mechanical fall with facial trauma and maxillary bone fracture -Multiple drug abuse -Acute psychosis: Management as per psychiatry -Patient does have history of decompensated cirrhosis, lasix is held due to hyponatremia, there is no acute abdominal pain on assessment -Hypotension hold off on propranolol Patient can medically be discharged home with father. Thank you kindly for this consultation. Objective - Vital Signs Vital signs: Vital Signs Temp 97.8 F 04/07/21 09:55 Pulse 88 04/08/21 12:12 Resp 18 04/08/21 12:12 BP 81/59 04/08/21 12:12 Pulse Ox 97 04/08/21 12:12 Intake & Output 04/07/21 04/08/21 04/08/21 18:59 06:59 18:59 Output Total 500 Balance -500 Output: Urine 500 Other: Voiding Method Urinal # Voids 2 - Labs CBC & Chem 7: 04/05/21 18:08 04/07/21 09:44 Assessment and Plan Time with Patient: Greater than 30
== END 2021-04-08 14:56 | disposition home or self-care (01) | DRG 89 ==
LOC: EC 17:51 → 6NMEDSUR 20:42 → OBSVTOIN 04-08 10:38
PROVIDERS: ADMIT Surgery; ATTEND Surgery
PROC: 0W9G3ZX Drainage of Peritoneal Cavity, Percutaneous Approach, Diagnostic (ICD-10-PCS; principal; 2021-04-07)
DX: S06.0X0A Concussion without loss of consciousness, initial encounter (principal); E87.1 Hypo-osmolality and hyponatremia; F23 Brief psychotic disorder; J98.11 Atelectasis; R45.851 Suicidal ideations; N17.9 Acute kidney failure, unspecified; E78.5 Hyperlipidemia, unspecified; S02.401A Maxillary fracture, unspecified side, initial encounter for closed fracture; E86.0 Dehydration; E86.1 Hypovolemia; F10.10 Alcohol abuse, uncomplicated; F12.10 Cannabis abuse, uncomplicated; F17.200 Nicotine dependence, unspecified, uncomplicated; F31.9 Bipolar disorder, unspecified; F41.0 Panic disorder [episodic paroxysmal anxiety]; F43.10 Post-traumatic stress disorder, unspecified; G40.909 Epilepsy, unspecified, not intractable, without status epilepticus; I10 Essential (primary) hypertension; S02.2XXA Fracture of nasal bones, initial encounter for closed fracture; W18.30XA Fall on same level, unspecified, initial encounter; J34.2 Deviated nasal septum; Z83.3 Family history of diabetes mellitus; Z82.49 Family history of ischemic heart disease and other diseases of the circulatory system; Z79.899 Other long term (current) drug therapy; Z78.1 Physical restraint status; K74.60 Unspecified cirrhosis of liver; Y92.002 Bathroom of unspecified non-institutional (private) residence as the place of occurrence of the external cause; R56.9 Unspecified convulsions; W01.0XXA Fall on same level from slipping, tripping and stumbling without subsequent striking against object, initial encounter; I95.9 Hypotension, unspecified; M54.2 Cervicalgia; M54.9 Dorsalgia, unspecified; R79.89 Other specified abnormal findings of blood chemistry
CPT/HCPCS: 36415; 49083; 70450; 70486; 71045; 72125; 72170; 80048; 80053; 80143; 80179; 80306; 80320; 81003; 82607; 82746; 84484; 85025; 85610; 85730; 86780; 86850; 86900; 86901; 87635; 93880; 95816; 96361; 96374; 99291

== ENCOUNTER 2021-04-18 08:50 | Day surgery (SDC) | payer OTHER ==
[2021-04-18 09:21] LABS: Mean Platelet Volume 7.7; Platelet Count 201 k/uL (150-450)
[2021-04-18 09:32] VITALS: RESP 16; TEMP 98.3
[2021-04-18] MEDS: ALBUMIN HUMAN 25% 50 ML in EMPTY BAG 1 BAG IVPB SCH ×6 (09:33→11:04)
[2021-04-18 09:42] LABS: Prothrombin Time 10.3 sec (9.0-12.0)
[2021-04-18 11:48] VITALS: BP 91/65; PULSE 84
--- NOTE | 2021-04-18 14:51 | US ---
Ultrasound-guided paracentesis. DATE OF EXAM: 04/18/2021 CLINICAL HISTORY: Ascites The procedure was discussed with the patient. The risks, complications, benefits, and alternatives we re discussed and any questions were answered. Informed consent was obtained. The patient was placed s upine on the ultrasound table and prepped and draped in the usual sterile fashion. All elements of maximal barrier technique were utilized. Under ultrasound guidance, access into the right lower quadrant was obtained, via the paracentesis catheter system and direct ultrasound guidanc e. Approximately 10.3 liters of straw-colored fluid was removed. The patient was stable throughout the p rocedure and remained stable upon discharge from Department of Radiology. IMPRESSION: Successful paracentesis under ultrasound guidance.
== END 2021-04-18 11:56 | disposition home or self-care (01) ==
LOC: RADPROMAIN 08:50
PROVIDERS: ATTEND Internal Medicine Gastroenterology
DX: R18.8 Other ascites (principal)
CPT/HCPCS: 49083; 82565; 84520; 85049; 85610; 36415; P9047

== ENCOUNTER 2021-04-25 08:51 | Day surgery (SDC) | payer OTHER ==
[2021-04-25 09:20] VITALS: RESP 16; TEMP 98.2
[2021-04-25] MEDS: ALBUMIN HUMAN 25% 50 ML in EMPTY BAG 1 BAG IVPB SCH ×6 (09:26→11:33)
[2021-04-25 09:27] LABS: Mean Platelet Volume 7.4; Platelet Count 195 k/uL (150-450)
[2021-04-25 09:34] LABS: Prothrombin Time 10.5 sec (9.0-12.0)
[2021-04-25 09:43] LABS: African American GFR (CKD) >90 (>60 ml/min/1.73 sqM); Blood Urea Nitrogen 20 mg/dL (9-20); Non-African American GFR(CKD) 81 (>60 ml/min/1.73 sqM)
[2021-04-25 11:31] VITALS: BP 91/56; PULSE 76
--- NOTE | 2021-04-25 12:37 | US ---
EXAMINATION TYPE: US paracentesis abd w/image DATE OF EXAM: 04/25/2021 COMPARISON: NONE HISTORY: Ascites. PROCEDURE: Maximal barrier technique was utilized. The skin overlying a suitable pocket of fluid was localized with ultrasound and the overlying skin was prepped and draped. Ultrasound was utilized with sterile technique. Lidocaine was used for local anesthesia and a skin colleen made with a scalpel. Catheter was advanced under direct ultrasound guidance into a suitable pocket of fluid and approximately 5.4 liter s of serous fluid were removed. Catheter was withdrawn and hemostasis achieved. There is no immedia te complication; the patient is discharged in stable condition. IMPRESSION: STATUS POST ULTRASOUND GUIDED PARACENTESIS FOR PALLIATION OF ASCITES. THIS PROCEDURE WA S PERFORMED BY THE UNDERSIGNED.
== END 2021-04-25 11:35 | disposition home or self-care (01) ==
LOC: RADPROMAIN 08:51
PROVIDERS: ATTEND Internal Medicine Gastroenterology
DX: K70.31 Alcoholic cirrhosis of liver with ascites (principal)
CPT/HCPCS: 82565; 84520; 85049; 85610; 36415; 49083; P9047

== ENCOUNTER 2021-05-02 08:44 | Day surgery (SDC) | payer OTHER ==
[2021-05-02] MEDS: ALBUMIN HUMAN 25% 50 ML in EMPTY BAG 1 BAG IVPB SCH ×6 (09:16→11:13)
[2021-05-02 09:22] VITALS: RESP 16; TEMP 98.3
[2021-05-02 09:23] LABS: Mean Platelet Volume 7.8; Platelet Count 137 k/uL (150-450)
[2021-05-02 09:26] LABS: Prothrombin Time 10.6 sec (9.0-12.0)
[2021-05-02 09:31] LABS: African American GFR (CKD) >90 (>60 ml/min/1.73 sqM); Non-African American GFR(CKD) 78 (>60 ml/min/1.73 sqM)
[2021-05-02 11:19] VITALS: BP 91/51; PULSE 82
--- NOTE | 2021-05-02 11:56 | US ---
Ultrasound-guided paracentesis. DATE OF EXAM: 05/02/2021 CLINICAL HISTORY: Ascites The procedure was discussed with the patient. The risks, complications, benefits, and alternatives we re discussed and any questions were answered. Informed consent was obtained. The patient was placed s upine on the ultrasound table and prepped and draped in the usual sterile fashion. All elements of maximal barrier technique were utilized. Under ultrasound guidance, access into the right lower quadrant was obtained, via the paracentesis catheter system and direct ultrasound guidanc e. Approximately 6.1 liters of straw-colored fluid was removed. The patient was stable throughout the pr ocedure and remained stable upon discharge from Department of Radiology. IMPRESSION: Successful paracentesis under ultrasound guidance.
== END 2021-05-02 11:18 | disposition home or self-care (01) ==
LOC: RADPROMAIN 08:44
PROVIDERS: ATTEND Internal Medicine Gastroenterology
DX: K70.31 Alcoholic cirrhosis of liver with ascites (principal)
CPT/HCPCS: 82565; 85049; 85610; 36415; 49083; P9047

== ENCOUNTER 2021-05-09 08:41 | Day surgery (SDC) | payer OTHER ==
[2021-05-09 09:03] VITALS: RESP 16; TEMP 98.1
[2021-05-09 09:18] LABS: Mean Platelet Volume 8.1; Platelet Count 169 k/uL (150-450)
[2021-05-09] MEDS: ALBUMIN HUMAN 25% 50 ML in EMPTY BAG 1 BAG IVPB SCH ×5 (09:21→11:27)
[2021-05-09 09:35] LABS: African American GFR (CKD) >90 (>60 ml/min/1.73 sqM); Blood Urea Nitrogen 16 mg/dL (9-20); Non-African American GFR(CKD) 79 (>60 ml/min/1.73 sqM)
[2021-05-09 09:39] LABS: Prothrombin Time 10.5 sec (9.0-12.0)
[2021-05-09 10:58] VITALS: BP 91/54; PULSE 76
--- NOTE | 2021-05-09 12:43 | US ---
EXAMINATION TYPE: US paracentesis abd w/image DATE OF EXAM: 05/09/2021 COMPARISON: NONE HISTORY: Ascites. PROCEDURE: Maximal barrier technique was utilized. The skin overlying a suitable pocket of fluid was localized with ultrasound and the overlying skin was prepped and draped. Ultrasound was utilized with sterile technique. Lidocaine was used for local anesthesia and a skin colleen made with a scalpel. Catheter was advanced under direct ultrasound guidance into a suitable pocket of fluid and approximately 3.2 liter s of serous fluid were removed. Catheter was withdrawn and hemostasis achieved. There is no immedia te complication; the patient is discharged in stable condition. IMPRESSION: STATUS POST ULTRASOUND GUIDED PARACENTESIS FOR PALLIATION OF ASCITES. THIS PROCEDURE WA S PERFORMED BY THE UNDERSIGNED.
== END 2021-05-09 11:10 | disposition home or self-care (01) ==
LOC: RADPROMAIN 08:41
PROVIDERS: ATTEND Internal Medicine Gastroenterology
DX: R18.8 Other ascites (principal)
CPT/HCPCS: 49083; 82565; 84520; 85049; 85610; 36415; P9047

== ENCOUNTER 2021-05-16 08:53 | Day surgery (SDC) | payer OTHER ==
[2021-05-16 09:17] LABS: Mean Platelet Volume 7.5; Platelet Count 178 k/uL (150-450)
[2021-05-16 09:22] LABS: Prothrombin Time 10.7 sec (9.0-12.0)
[2021-05-16 09:26] LABS: African American GFR (CKD) >90 (>60 ml/min/1.73 sqM); Non-African American GFR(CKD) >90 (>60 ml/min/1.73 sqM)
[2021-05-16] MEDS: ALBUMIN HUMAN 25% 50 ML in EMPTY BAG 1 BAG IVPB SCH ×4 (09:30→10:36)
[2021-05-16 10:21] VITALS: RESP 20; TEMP 97.9
[2021-05-16 11:37] VITALS: BP 99/60; PULSE 94
--- NOTE | 2021-05-16 12:28 | US ---
EXAMINATION TYPE: US paracentesis abd w/image DATE OF EXAM: 05/16/2021 COMPARISON: NONE HISTORY: Ascites. PROCEDURE: Maximal barrier technique was utilized. The skin overlying a suitable pocket of fluid was localized with ultrasound and the overlying skin was prepped and draped. Ultrasound was utilized with sterile technique. Lidocaine was used for local anesthesia and a skin colleen made with a scalpel. Catheter was advanced under direct ultrasound guidance into a suitable pocket of fluid and approximately 5.8 liter s of serous fluid were removed. Catheter was withdrawn and hemostasis achieved. There is no immedia te complication; the patient is discharged in stable condition. IMPRESSION: STATUS POST ULTRASOUND GUIDED PARACENTESIS FOR PALLIATION OF ASCITES. THIS PROCEDURE WA S PERFORMED BY THE UNDERSIGNED.
== END 2021-05-16 11:25 | disposition home or self-care (01) ==
LOC: RADPROMAIN 08:53
PROVIDERS: ATTEND Internal Medicine Gastroenterology
DX: K70.31 Alcoholic cirrhosis of liver with ascites (principal)
CPT/HCPCS: 82565; 85049; 85610; 36415; 49083; P9047

== ENCOUNTER 2021-05-23 08:46 | Day surgery (SDC) | payer OTHER ==
[2021-05-23 09:05] VITALS: RESP 16
[2021-05-23 09:31] LABS: Mean Platelet Volume 7.5; Platelet Count 144 k/uL (150-450)
[2021-05-23 09:39] LABS: African American GFR (CKD) >90 (>60 ml/min/1.73 sqM); Non-African American GFR(CKD) >90 (>60 ml/min/1.73 sqM)
[2021-05-23 09:49] LABS: Prothrombin Time 10.6 sec (9.0-12.0)
[2021-05-23] MEDS: ALBUMIN HUMAN 25% 50 ML in EMPTY BAG 1 BAG IVPB SCH ×4 (09:53→11:18)
[2021-05-23 11:05] VITALS: BP 96/62; PULSE 72
--- NOTE | 2021-05-23 12:21 | US ---
Ultrasound-guided paracentesis. DATE OF EXAM: 05/23/2021 CLINICAL HISTORY: Ascites The procedure was discussed with the patient. The risks, complications, benefits, and alternatives we re discussed and any questions were answered. Informed consent was obtained. The patient was placed s upine on the ultrasound table and prepped and draped in the usual sterile fashion. All elements of maximal barrier technique were utilized. Under ultrasound guidance, access into the right lower quadrant was obtained, via the paracentesis catheter system and direct ultrasound guidanc e. Approximately 3.9 liters of straw-colored fluid was removed. The patient was stable throughout the pr ocedure and remained stable upon discharge from Department of Radiology. IMPRESSION: Successful paracentesis under ultrasound guidance.
== END 2021-05-23 11:20 | disposition home or self-care (01) ==
LOC: RADPROMAIN 08:46
PROVIDERS: ATTEND Internal Medicine Gastroenterology
DX: R18.8 Other ascites (principal)
CPT/HCPCS: 49083; 82565; 85049; 85610; 36415; P9047

== ENCOUNTER 2021-06-27 08:55 | Day surgery (SDC) | payer OTHER ==
[2021-06-27 09:13] VITALS: BP 111/66; PULSE 74; RESP 16; TEMP 98.1
[2021-06-27] MEDS ORDERED: ALBUMIN HUMAN 25% 50 ML in EMPTY BAG 1 BAG IVPB SCH (09:15)
--- NOTE | 2021-06-27 09:37 | US ---
Ultrasound-guided paracentesis. DATE OF EXAM: 06/27/2021 CLINICAL HISTORY: Ascites Preliminary imaging of the abdomen demonstrated only small amount fluid. The patient declined the pro cedure. IMPRESSION: Deferred paracentesis.
== END 2021-06-27 09:28 | disposition home or self-care (01) ==
LOC: RADPROMAIN 08:55
PROVIDERS: ATTEND Internal Medicine Gastroenterology
DX: K70.31 Alcoholic cirrhosis of liver with ascites (principal); Z53.8 Procedure and treatment not carried out for other reasons
CPT/HCPCS: 76705

== ENCOUNTER → 2022-01-02 | Outpatient (CLI) | payer OTHER | END | disposition home or self-care (01) | LOC: LABWHC1 11:22 | PROVIDERS: ATTEND Internal Medicine Endocrinology, Diabetes & Metabolism | DX: E05.00 Thyrotoxicosis with diffuse goiter without thyrotoxic crisis or storm (principal) | CPT/HCPCS: 36415; 84439; 84443; 84445; 84480 ==

== ENCOUNTER → 2022-01-09 | Outpatient (CLI) | payer OTHER ==
--- NOTE | 2022-01-10 07:09 | US ---
EXAMINATION TYPE: US thyroid st tissue head/neck DATE OF EXAM: 01/09/2022 COMPARISON: NONE CLINICAL HISTORY: R94.6 ABN THYROID FUNCTION STUDY RESULTS GLAND SIZE: Right Lobe: 4.9 x 2.2 x 1.4 cm Overall Parenchyma: heterogenous Left Lobe: 3.9 x 2.2 x 1.2 cm Overall Parenchyma: heterogeneous Isthmus Thickness: 0.2 cm NODULES RIGHT: # of nodules measured on right: 0 LEFT: # of nodules measured on left: 0 ISTHMUS: # of nodules measured in the isthmus: 0 Bilateral neck scanned, no evidence of lymphadenopathy. IMPRESSION: Nonspecific glandular heterogeneity.
== END | disposition home or self-care (01) ==
LOC: RADUSWWP 16:04
DX: R94.6 Abnormal results of thyroid function studies (principal)
CPT/HCPCS: 76536

== ENCOUNTER 2022-01-13 12:21 | Day surgery (SDC) | payer OTHER ==
[2022-01-12 13:08] VITALS: BMI 20.2
[~2022-01-13 12:21] MED LIST changes: +LIDOCAINE 1% (10MG/ML) FOR IV START INTRADERMA PRN
[2022-01-13 12:42] VITALS: TEMP 97.7
[2022-01-13] MEDS ORDERED: GLYCOPYRROLATE 0.2 MG/ML 2 ML VIAL ONE (13:58)
[2022-01-13] MEDS ORDERED: fentaNYL (PF) 50 MCG/ML 2 ML AMP ONE (13:58)
[2022-01-13] MEDS ORDERED: PROPOFOL 10 MG/ML 20 ML VIAL IV ONE (13:58)
[2022-01-13] MEDS ORDERED: LIDOCAINE 2% INJ 20 MG/ML (2 ML VIAL) ONE (13:58)
--- NOTE | 2022-01-13 14:12 | P.PCN ---
Date of Procedure: 01/13/22 Procedure(s) Performed: BRIEF HISTORY: Patient is a 46-year-old, pleasant, white male with history of c alcoholic irrhosis of the liver is scheduled for an upper endoscopy as a part of screening for esophageal varices. PROCEDURE PERFORMED: Esophagogastroduodenoscopy. PREOPERATIVE DIAGNOSIS: HiHistory of alcoholic/screening for esophageal varices IV sedation per anesthesia. PROCEDURE: After informed consent was obtained, the patient was brought into the endoscopy unit. IV sedation was administered by Anesthesia under continuous monitoring. Initially the Olympus GIF-140 video endoscope was inserted into the mouth. Esophagus intubated without any difficulty. It was gradually advanced into the stomach and duodenum and carefully examined. The bulb of the duodenum had small 2-3 mm ulcerations identified. The second part of the duodenum appeared normal. The scope at this time was withdrawn to the stomach, adequately insufflated with air, and upon careful examination, mucosa of the antrum, had mild gastritis and biopsies were done from this area. The body, cardia and the fundus appeared normal. The scope was then withdrawn into the esophagus. The GE junction was located at 39 cm from the incisors. The esophagus appeared normal. There were no erosions or ulcerations seen. No evidence of esophageal varices and the patient tolerated the procedure well. IMPRESSION: 1. Normal-appearing esophagus with no evidence of esophageal varices. 2.. Mild antral gastritis 3. Multiple small duodenal ulcers measuring between 2-3 mm in the duodenal bulb status post biopsy RECOMMENDATIONS: The findings of this examination were discussed with the patient as well as his family. Start Prilosec 20 mg daily. Abscesses from alcohol. We'll plan a repeat upper endoscopy to screen for esophageal varices every 2-3 years.
[2022-01-13 14:25] VITALS: PULSE 84; RESP 17
[2022-01-13 14:40] VITALS: BP 100/68
== END 2022-01-13 15:15 | disposition home or self-care (01) ==
LOC: ORWHC2ENDO 12:21
PROVIDERS: ATTEND Internal Medicine Gastroenterology
DX: K26.9 Duodenal ulcer, unspecified as acute or chronic, without hemorrhage or perforation (principal); K29.50 Unspecified chronic gastritis without bleeding; K70.30 Alcoholic cirrhosis of liver without ascites; I10 Essential (primary) hypertension; E78.5 Hyperlipidemia, unspecified; R56.9 Unspecified convulsions; Z79.899 Other long term (current) drug therapy; Z88.8 Allergy status to other drugs, medicaments and biological substances
CPT/HCPCS: 88305; 43239; J3010; J2704; J2001

== ENCOUNTER → 2022-01-18 | Outpatient (CLI) | payer OTHER ==
--- NOTE | 2022-01-18 16:03 | MR ---
EXAMINATION TYPE: MR shoulder LT wo con DATE OF EXAM: 01/18/2022 COMPARISON: None. HISTORY: Left shoulder pain and limited movement for 5 months. TECHNIQUE: Multiplanar, multisequence imaging of the left shoulder is performed without contrast. FINDINGS: Rotator Cuff: Significant tearing of the distal supraspinatus tendon with only a few fibers remaining intact coronal image 14 for reference. The infraspinatus tendon is intact. Subscapularis tendon inta ct. Rotator cuff muscle bulk preserved. Acromioclavicular Joint: Mild to moderate narrowing and capsular hypertrophy with mass effect on unde rlying fat plane. No significant spurring. Glenohumeral Joint: No significant spurring or effusion. Labrum: The labrum appears grossly intact given limitation of non-arthrogram study. Biceps Tendon: The long head of biceps is in normal location within bicipital groove. Bone marrow signal: No focal abnormal marrow signal is appreciated. Other: No additional significant abnormality is appreciated. IMPRESSION: Significant near full-thickness tear of the supraspinatus tendon.
== END | disposition home or self-care (01) ==
LOC: RADMRIMAIN 14:39
DX: M75.112 Incomplete rotator cuff tear or rupture of left shoulder, not specified as traumatic (principal)

== ENCOUNTER → 2022-01-27 | Outpatient (CLI) | payer OTHER ==
[2022-01-27 18:28] LABS: Basophils # (A) 0.06 X 10*3/uL (0.00-0.10); Basophils % (A) 0.9 %; Eosinophils # (A) 0.32 X 10*3/uL (0.04-0.35); Eosinophils % (A) 4.9 %; HCT 40.2 % (39.6-50.0); HGB 13.9 g/dL (13.0-17.0); Immature Grans, Automated 0.2 %; Lymphocytes # (A) 2.04 X 10*3/uL (0.90-5.00); MCH 31.4 pg (27.0-32.0); MCHC 34.6 g/dL (32.0-37.0); MCV 90.7 fL (80.0-97.0); Mean Platelet Volume 11.6 fL (9.5-12.2); Monocytes # (A) 0.62 X 10*3/uL (0.20-1.00); Monocytes % (A) 9.4 %; NRBC Per 100 WBC 0 /100 WBCS (0.0-0.0); Neutrophils # (A) 3.54 X 10*3/uL (1.80-7.70); Neutrophils % (A) 53.6 %; Platelet Count 142 X 10*3/uL (140-440); RBC 4.43 X 10*6/uL (4.40-5.60); RDW 13.4 % (11.5-14.5); WBC 6.59 X 10*3/uL (4.50-10.00)
[2022-01-27 18:58] LABS: Chol/HDL Ratio 4.01 Ratio; LDL Cholesterol,Calculated 81.8 mg/dL (0.0-131.0)
[2022-01-27 19:33] LABS: ALT 27 U/L (10-49); AST 27 U/L (14-35); African American GFR (CKD) 121.3 (60.0-200.0); Albumin 4.4 g/dL (3.8-4.9); Albumin/Globulin Ratio 1.76 (1.60-3.17); Alkaline Phosphatase 104 U/L (41-126); BUN/Creat Ratio 15.53 Ratio (12.00-20.00); Bilirubin, Conjugated <0.20 mg/dL (0.20-0.40); Blood Urea Nitrogen 12.7 mg/dL (9.0-27.0); Calcium 9.8 mg/dL (8.7-10.3); Carbon Dioxide 23.4 mmol/L (20.0-27.5); Chloride 107 mmol/L (96-109); Globulin 2.5 g/dL (1.6-3.3); Glucose 118 mg/dL (70-110); Non-African American GFR(CKD) 104.7 (60.0-200.0); Potassium 4.1 mmol/L (3.5-5.5); Sodium 141 mmol/L (135-145); Total Protein 6.9 g/dL (6.2-8.2)
== END | disposition home or self-care (01) ==
LOC: LABWHC1 13:05
PROVIDERS: ATTEND Registered Nurse
DX: F33.2 Major depressive disorder, recurrent severe without psychotic features (principal); Z79.899 Other long term (current) drug therapy
CPT/HCPCS: 36415; 80053; 80061; 82248; 82306; 83036; 84439; 84443; 85025; 93005

== ENCOUNTER → 2022-04-18 | Outpatient (CLI) | payer OTHER ==
[2022-04-18 18:55] LABS: Basophils # (A) 0.07 X 10*3/uL (0.00-0.10); Basophils % (A) 0.8 %; Eosinophils # (A) 0.31 X 10*3/uL (0.04-0.35); Eosinophils % (A) 3.4 %; HCT 42.7 % (39.6-50.0); HGB 14.9 g/dL (13.0-17.0); Immature Grans, Automated 0.2 %; Lymphocytes # (A) 3.65 X 10*3/uL (0.90-5.00); Lymphocytes % (A) 39.7 %; MCH 31.4 pg (27.0-32.0); MCHC 34.9 g/dL (32.0-37.0); MCV 89.9 fL (80.0-97.0); Mean Platelet Volume 11.6 fL (9.5-12.2); Monocytes # (A) 0.71 X 10*3/uL (0.20-1.00); Monocytes % (A) 7.7 %; NRBC Per 100 WBC 0 /100 WBCS (0.0-0.0); Neutrophils # (A) 4.44 X 10*3/uL (1.80-7.70); Neutrophils % (A) 48.2 %; Platelet Count 163 X 10*3/uL (140-440); RBC 4.75 X 10*6/uL (4.40-5.60); RDW 12.9 % (11.5-14.5)
[2022-04-18 20:24] LABS: Anion Gap 10.2 mmol/L (10.00-18.00); Carbon Dioxide 28.3 mmol/L (20.0-27.5); Potassium 3.9 mmol/L (3.5-5.5)
== END | disposition home or self-care (01) ==
LOC: LABPAT 12:34
PROVIDERS: ATTEND Orthopaedic Surgery
DX: Z01.818 Encounter for other preprocedural examination (principal); Z01.812 Encounter for preprocedural laboratory examination; M75.42 Impingement syndrome of left shoulder
CPT/HCPCS: 36415; 80051; 85025

== ENCOUNTER 2022-04-20 07:42 | Day surgery (SDC) | payer OTHER ==
[2022-04-19 08:55] VITALS: BMI 20.2
--- NOTE | 2022-04-19 23:25 | HP ---
HISTORY AND PHYSICAL DATE OF SURGERY: 04/20/2022. HISTORY OF PRESENT ILLNESS: Mason Tran is a 46-year-old patient, seen with progressive left shoulder pain. We discussed options. He elected to proceed with left shoulder arthroscopy. Consent was obtained. PAST MEDICAL HISTORY: Hypertension. PAST SURGICAL HISTORY: Noncontributory. DAILY MEDICATIONS: Propranolol. ALLERGIES: None. SOCIAL HISTORY: He smokes a few cigarettes a day. PHYSICAL EVALUATION OF THE LEFT SHOULDER: Flexion is 80 degrees, abduction is 40 degrees, external rotation is 30 degrees with pain and weakness. There is tenderness along the anterolateral acromion and rotator cuff insertion. Impingement is positive at 90 degrees. Cross-body adduction sign is positive. Drop-arm sign is positive. Distal neurovascular exam is intact. RADIOGRAPHS: Left shoulder radiographs revealed a type 2 acromion, evidence for acromioclavicular joint osteoarthritis and cystic changes of the tuberosity. MRI of the left shoulder revealed a rotator cuff tear along with acromioclavicular joint osteoarthritis. IMPRESSION: 1. Left shoulder impingement with rotator cuff tear. 2. Left shoulder acromioclavicular joint osteoarthritis. PLAN: Left shoulder arthroscopy with subacromial decompression, arthroscopic rotator cuff repair, possible Gris procedure, and debridement. MMODL / IJN: [id number] /
[~2022-04-20 07:42] MED LIST changes: +DEXAMETHASONE SOD PHOSPHATE 4 MG/ML 1 ML VIAL IV ONE; +HYDROmorphone 0.5 MG/0.5 ML SYRINGE IVP PRN; -LIDOCAINE 1% (10MG/ML) FOR IV START INTRADERMA PRN; +ONDANSETRON 4 MG/2 ML VIAL IVP ONE
[2022-04-20] MEDS ORDERED: LIDOCAINE 1% (10MG/ML) FOR IV START INTRADERMA ONE (08:20)
[2022-04-20] MEDS ORDERED: MIDAZOLAM 2 MG/2 ML VIAL IV ONE (09:01)
[2022-04-20] MEDS ORDERED: PROPOFOL 10 MG/ML 20 ML VIAL IV ONE (09:10)
[2022-04-20] MEDS ORDERED: SUCCINYLCHOLINE CHLORIDE 200 MG/10 ML VIAL IV ONE (09:10)
[2022-04-20] MEDS ORDERED: DEXAMETHASONE SOD PHOSPHATE 4 MG/ML 1 ML VIAL ONE (09:10)
[2022-04-20] MEDS ORDERED: MIDAZOLAM 2 MG/2 ML VIAL ONE (09:10)
[2022-04-20] MEDS ORDERED: LIDOCAINE 4% LTA KIT (4 ML) TOPICAL ONE (09:10)
[2022-04-20] MEDS ORDERED: fentaNYL (PF) 50 MCG/ML 2 ML AMP ONE (09:10)
[2022-04-20] MEDS ORDERED: ROPIVACAINE 5 MG/ML 30 ML VIAL ONE (09:10)
[2022-04-20] MEDS ORDERED: LIDOCAINE 2% INJ 20 MG/ML (2 ML VIAL) ONE (09:10)
[2022-04-20] MEDS ORDERED: SODIUM CHLORIDE 0.9% 50 ML with ceFAZolin 1,000 MG IV ONE ×2 (09:14)
--- NOTE | 2022-04-20 10:27 | P.OP ---
Date of Procedure: 04/20/22 Preoperative Diagnosis: Left shoulder impingement Postoperative Diagnosis: 1. Left shoulder rotator cuff tear 2. Left shoulder impingement 3. Left shoulder partial long head biceps tendon tear Procedure(s) Performed: 1. Left shoulder arthroscopic rotator cuff repair 2. Left shoulder arthroscopic subacromial decompression 3. Left shoulder arthroscopic biceps tenotomy Implants: 14.75 Arthrex swivel lock anchor Anesthesia: GETA, regional (Interscalene block) Surgeon: Navarro Lobato Labor Economist #1: Jesus Moreno Estimated Blood Loss (ml): 10 Pathology: none sent Condition: stable Disposition: PACU Indications for Procedure: 46-year-old patient seen with progressive left shoulder pain. After treatment options were discussed, he elected to proceed with arthroscopy. Operative Findings: See description of procedure Description of Procedure: Patient underwent an interscalene block by department of anesthesia. The patient was then taken to the operative suite. The patient underwent a general anesthetic by the department of anesthesia. The patient was placed into a lateral position and secured. There was appropriate padding of the bony prominence. Left shoulder was then prepped and draped in normal sterile orthopedic fashion. We placed the extremity in 10 pounds of longitudinal traction. A posterior incision was now made for a posterior working portal site. The trocar and cannula were inserted into the glenohumeral joint. Arthroscopy was initiated. Spinal needle was now inserted anteriorly, to ascertain the anterior working portal site. An incision was now made in that area, a trocar was inserted followed by a probe. There was hyperemia partial tearing along its biceps tendon. The labrum was probed and was found to be stable. There was no significant chondromalacia present. I performed an arthroscopic biceps tenotomy. The residual labrum was again probed and found to be stable. Instruments were now removed from the glenohumeral joint. Utilizing the posterior working portal site, the trocar and cannula were inserted into the subacromial space. Arthroscopy initiated. I made an incision 2 fingerbreadths lateral to the acromion. I introduced my trocar followed by my ArthroCare ablator. I now began ablating thick subacromial bursal tissue, which exposed the undersurface of the anterior acromion. There was diminished subacromial space. There was a very prominent anterior acromion. A motorized bur was introduced and a subacromial decompression was performed. I also excised some osteophytes off the inferior aspect of the distal clavicle. The AC joint was visualized and noted to be moderately arthritic. I did not think enough toward a Gris procedure. I turned my attention to the rotator cuff tendon. There was a tear along the distal supraspinatus. I debrided the margins any on a stable tendon tissue. The defect/tear measuring 1.5 cm and was freely mobile over the footprint. I abraded the footprint with a motorized bur. With the assistance of Jesus WOODS I passed 3 everted mattress sutures through good bites of rotator cuff tendon. I punched on the footprint area for insertion of an anchor. All 6 limbs of suture were passed through the eyelet of a 4.75 Arthrex swivel lock anchor. The eyelet was placed into the pre-punched hole. I held it in position while Jesus WOODS tensioned all 6 limbs of suture and deployed the anchor with good fixation noted. All residual suture limbs were now clipped. We had good compression of the tendon along the entire footprint. Instruments now removed from the portal sites. All portal sites were approximated with nylon suture. Sterile dressings were applied followed by a shoulder sling. Jesus WOODS assisted in this case. The patient was awakened, transferred to a bed, and taken to recovery in stable condition.
[2022-04-20 10:29] VITALS: TEMP 96.8
[2022-04-20] MEDS ORDERED: LACTATED RINGERS 1,000 ML IV ONE ×2 (10:30)
[2022-04-20 11:42] VITALS: BP 107/73; PULSE 63; RESP 16
--- NOTE | 2022-04-20 20:07 | P.ANPRN ---
Procedure Note - Anesthesia - Nerve Block Performed Left Interscalene Single Time Out Performed: Yes Date of Procedure: 04/20/22 Procedure Start Time: 09:01 Procedure Stop Time: 09:05 Location of Patient: PreOp Indication: Acute Post-Operative Pain, Requested by Surgeon Sedation Type: Sedate with meaningful contact maintained Preparation: Sterile Prep Position: Supine Needle Types: Pajunk Needle Gauge: 21 Ultrasound used to visualize needle placement: Yes Ultrasound used to observe medication spread: Yes Blood Aspirated: Yes Pain Paresthesia on Injection Noted: Yes Resistance on Injection: Normal Image Stored and Saved: Yes Events: Uneventful and Well Tolerated (ropi .5% 20cc plus dexamethasone 4mg)
== END 2022-04-20 12:15 | disposition home or self-care (01) ==
LOC: OR 07:42
PROVIDERS: ATTEND Orthopaedic Surgery
DX: M75.102 Unspecified rotator cuff tear or rupture of left shoulder, not specified as traumatic (principal); M25.812 Other specified joint disorders, left shoulder; S46.112A Strain of muscle, fascia and tendon of long head of biceps, left arm, initial encounter; I10 Essential (primary) hypertension; F17.210 Nicotine dependence, cigarettes, uncomplicated; F31.9 Bipolar disorder, unspecified; K70.30 Alcoholic cirrhosis of liver without ascites; G40.909 Epilepsy, unspecified, not intractable, without status epilepticus; F10.90 Alcohol use, unspecified, uncomplicated; Z88.8 Allergy status to other drugs, medicaments and biological substances; Z79.899 Other long term (current) drug therapy
CPT/HCPCS: 64415; 76942; 29827; 29826; C1713; J2250; J0330; J1100; J2405; J0690; J3010; J2795; J2704; J2001

== ENCOUNTER → 2022-12-08 | Outpatient (CLI) | payer OTHER ==
[2022-12-09 02:44] LABS: T4, Free (Free Thyroxine) 0.97 ng/dL (0.80-1.80)
== END | disposition home or self-care (01) ==
LOC: LABWHC1 15:42
PROVIDERS: ATTEND Internal Medicine Endocrinology, Diabetes & Metabolism
DX: E05.00 Thyrotoxicosis with diffuse goiter without thyrotoxic crisis or storm (principal)
CPT/HCPCS: 36415; 84439; 84443; 84480

== ENCOUNTER → 2023-05-11 | Outpatient (CLI) | payer OTHER ==
[2023-05-12 03:00] LABS: T4, Free (Free Thyroxine) 1.23 ng/dL (0.80-1.80)
== END | disposition home or self-care (01) ==
LOC: LABWHC1 14:01
PROVIDERS: ATTEND Internal Medicine Endocrinology, Diabetes & Metabolism
DX: E05.00 Thyrotoxicosis with diffuse goiter without thyrotoxic crisis or storm (principal)
CPT/HCPCS: 36415; 84439; 84443; 84480

== ENCOUNTER → 2023-10-10 | Outpatient (CLI) | payer OTHER ==
[2023-10-10 19:22] LABS: T4, Free (Free Thyroxine) 1.09 ng/dL (0.80-1.80)
[2023-10-10 19:48] LABS: ALT 30 U/L (10-49); AST 35 U/L (14-35); Albumin 4.9 g/dL (3.8-4.9); Albumin/Globulin Ratio 2.04 Ratio (1.60-3.17); Alkaline Phosphatase 82 U/L (41-126); Blood Urea Nitrogen 18.5 mg/dL (9.0-27.0); Calcium 9.5 mg/dL (8.7-10.3); Carbon Dioxide 22.4 mmol/L (21.6-31.8); Chloride 107 mmol/L (96-109); Globulin 2.4 g/dL (1.6-3.3); Glucose 84 mg/dL (70-110); Potassium 4.4 mmol/L (3.5-5.5); Sodium 142 mmol/L (135-145); Total Bilirubin 0.5 mg/dL (0.3-1.2); Total Protein 7.3 g/dL (6.2-8.2)
== END | disposition home or self-care (01) ==
LOC: LABWHC1 14:03
PROVIDERS: ATTEND Internal Medicine Endocrinology, Diabetes & Metabolism
DX: E05.00 Thyrotoxicosis with diffuse goiter without thyrotoxic crisis or storm (principal)
CPT/HCPCS: 36415; 80053; 84439; 84443; 84480

== ENCOUNTER 2024-01-18 09:20 | Day surgery (SDC) | payer OTHER ==
[2024-01-18] MEDS ORDERED: LACTATED RINGERS 1,000 ML BAG ONE (10:00)
[2024-01-18] MEDS ORDERED: PROPOFOL 10 MG/ML 20 ML VIAL IV ONE (10:09)
[2024-01-18] MEDS ORDERED: LIDOCAINE 1% INJ 10MG/ML (20 ML MDV) ONE (10:09)
--- NOTE | 2024-02-06 16:30 | OP ---
OPERATIVE REPORT DATE OF SERVICE : 01/18/2024 REQUESTING PHYSICIAN: [facility] HISTORY: Patient is a 48-year-old pleasant white male scheduled for an upper endoscopy as well as colonoscopy as a part of evaluation of screening for esophageal varices. The patient has a history of liver cirrhosis and screening for colon cancer. PROCEDURE PERFORMED: 1. EGD. 2. Colonoscopy with snare polypectomy. PREOPERATIVE DIAGNOSES: 1. Screening for esophageal varices/liver cirrhosis. 2. Screening for colon cancer. ANESTHESIA: IV sedation per Anesthesia. DESCRIPTION OF PROCEDURE: After informed consent was obtained from the patient, he was brought into the endoscopy unit. IV conscious sedation was administered by Anesthesia and continuous monitoring. Initially, upper endoscopy was done. Olympus CF-180 video endoscope was inserted into the mouth. Esophagus intubated without any difficulty and was gradually advanced into the stomach and duodenum carefully examined. Bulb in the 2nd part of the duodenum appeared normal. The scope at this time was advanced down to the stomach . Upon careful examination, there was mild gastritis noted. Body and cardia appeared normal. On retroflexion, no gastric varices identified. Scope was then withdrawn into esophagus. Small hiatal hernia noted. GE junction was located at 39 cm from the incisors. No esophageal varices seen. The patient tolerated the procedure well. She continued to remain sedated. At this time, a colonoscopy was done. Digital rectal examination was normal. The Olympus CF-180 video colonoscope was then inserted into the rectum, gradually advanced to the cecum. Careful examination was performed while the scope was gradually being withdrawn. The prep was good. Cecum, ascending colon, transverse colon appeared normal. In the descending colon, there was 7 mm polyp removed by cold snare polypectomy. In the sigmoid colon, there was a 2 cm thick pedunculated polyp at 30 cm from the anal verge that was removed by snare polypectomy. Scattered sigmoid diverticulosis was seen. The rectum appeared normal. Retroflexion was performed in the rectum. No lesions were noted. The patient tolerated the procedure well. IMPRESSION: 1. Upper endoscopy reveals no gastric or esophageal varices. 2. Mild gastritis and small hiatal hernia. 3. Colonoscopy reveals 7 mm descending colon polyp status post snare polypectomy and 2 cm thick pedunculated sigmoid colon polyp status post snare polypectomy and scattered sigmoid diverticulosis. RECOMMENDATION: Signs of this examination were discussed with the patient as well as his family. He was advised to follow up with biopsy results. If the biopsy reveals adenoma, he can have a repeat colonoscopy in 3 years. Also recommend a repeat upper endoscopy in 3 years to screen for esophageal varices. MMODL / IJN: [id number] /
== END 2024-01-18 11:27 ==
LOC: ORWHC2ENDO 09:20
PROVIDERS: ATTEND Internal Medicine Gastroenterology
DX: Z12.11 Encounter for screening for malignant neoplasm of colon (principal); K57.30 Diverticulosis of large intestine without perforation or abscess without bleeding; K74.60 Unspecified cirrhosis of liver; K44.9 Diaphragmatic hernia without obstruction or gangrene; K63.5 Polyp of colon; K29.70 Gastritis, unspecified, without bleeding; F17.200 Nicotine dependence, unspecified, uncomplicated; U07.0 Vaping-related disorder; E07.9 Disorder of thyroid, unspecified; G40.89 Other seizures; Z79.899 Other long term (current) drug therapy
CPT/HCPCS: 43235; 45385

== ENCOUNTER → 2024-06-16 | Outpatient (CLI) | payer OTHER ==
[2024-06-16 20:00] LABS: ALT 18 U/L (10-49); AST 24 U/L (14-35); Albumin 4.7 g/dL (3.8-4.9); Albumin/Globulin Ratio 1.96 Ratio (1.60-3.17); Alkaline Phosphatase 78 U/L (41-126); Blood Urea Nitrogen 17.9 mg/dL (9.0-27.0); Calcium 9.4 mg/dL (8.7-10.3); Carbon Dioxide 22.7 mmol/L (21.6-31.8); Chloride 108 mmol/L (96-109); Globulin 2.4 g/dL (1.6-3.3); Glucose 99 mg/dL (70-110); Potassium 4.2 mmol/L (3.5-5.5); Sodium 143 mmol/L (135-145); Total Bilirubin 0.3 mg/dL (0.3-1.2); Total Protein 7.1 g/dL (6.2-8.2)
[2024-06-16 20:58] LABS: Basophils # (A) 0.05 X 10*3/uL (0.00-0.10); Basophils % (A) 0.8 %; Eosinophils # (A) 0.15 X 10*3/uL (0.04-0.35); Eosinophils % (A) 2.3 %; HCT 44.6 % (39.6-50.0); HGB 15.1 g/dL (13.0-17.0); Lymphocytes # (A) 1.98 X 10*3/uL (0.90-5.00); Lymphocytes % (A) 29.7 %; MCH 30.6 pg (27.0-32.0); MCHC 33.9 g/dL (32.0-37.0); MCV 90.3 FL (80.0-97.0); Mean Platelet Volume 11.7 FL (9.5-12.2); Monocytes # (A) 0.51 X 10*3/uL (0.20-1.00); Monocytes % (A) 7.7 %; NRBC Per 100 WBC 0 X 10*3/uL (0.00-0.01); Neutrophils # (A) 3.95 X 10*3/uL (1.80-7.70); Neutrophils % (A) 59.2 %; Platelet Count 132 X 10*3/uL (140-440); RBC 4.94 X 10*6/uL (4.40-5.60); RDW 12.9 % (11.5-14.5); WBC 6.66 X 10*3/uL (4.50-10.00)
== END | disposition home or self-care (01) ==
LOC: LABWHC1 14:21
PROVIDERS: ATTEND Internal Medicine Gastroenterology
DX: K70.31 Alcoholic cirrhosis of liver with ascites (principal)
CPT/HCPCS: 36415; 80053; 82105; 85025

== ENCOUNTER → 2024-11-17 | Outpatient (CLI) | payer OTHER ==
--- NOTE | 2024-11-17 08:12 | US ---
EXAMINATION TYPE: US liver DATE OF EXAM: 11/17/2024 COMPARISON: 07/11/2024 CLINICAL INDICATION: Male, 48 years old with history of K74.69 OTHER CIRRHOSIS OF LIVER; Patient jacqueline es any signs or symptoms. Former Alcohol use 2.5 years ago TECHNIQUE: FINDINGS: EXAM MEASUREMENTS: Liver Length: 17.1 cm Gallbladder Wall: 0.1 cm CBD: 0.5 cm Right Kidney: 9.7 x 4.0 x 4.6 cm GEODESIST NOTES: Pancreas: Tail obscured by overlying bowel gas Liver: Increased attenuation, decreased visualization of vessels suggestive of fatty infiltrate; Irr egular contour Gallbladder: ? Stone vs calcification of the fundus Evidence for sonographic Mcguire's sign: No CBD: Within normal limits Right Kidney: wnl IMPRESSION: Nodular contour to liver correlate for early cirrhosis. Cholelithiasis. [facility] Vonda Gray, , 11/17/2024 8:09 AM
== END | disposition home or self-care (01) ==
LOC: RADUSWWP 07:40
PROVIDERS: ATTEND Internal Medicine
DX: K74.69 Other cirrhosis of liver (principal); K80.20 Calculus of gallbladder without cholecystitis without obstruction
CPT/HCPCS: 76705